=== PATIENT | male | born 1945 | race Caucasian/White ===

== ENCOUNTER → 2016-10-30 | Outpatient (CLI) | payer BC ==
[~2016-10-30] MED LIST: ALL300 PO; CEPH500C2 PO; CLB/200 PO; CMD10 PO; CRD4 PO; CRDCD/180 PO; HYDR-5688 PO; LISI40TA PO; LVNIS40 SQ; MECL1TAB42 PO; PRAV20TA PO; WARF10TA4 PO
--- NOTE | 2016-10-30 10:54 | DIAGNOSTIC IMAGING REPORT ---
ABDOMINAL ULTRASOUND COMPLETE HISTORY: Distention ABDOMINAL DISTENSION. COMPARISON: None. FINDINGS: Pancreas: The pancreas demonstrates a normal echotexture. Liver: Several hepatic cysts. Mild fatty infiltration of liver Gallbladder: Several small gallstones in the region of the gallbladder neck. Trace amount of gallbladder sludge. CBD: 3 mm Kidneys: Bilateral renal cysts measuring up to 5 cm on the left. No evidence for hydronephrosis. Spleen: Normal in size. Aorta: Normal in caliber. IVC: Patent. IMPRESSION: 1. Several small gallstones in the region of the gallbladder neck. 2. Normal caliber bile ducts. 3. Several simple renal cysts Electronically signed by: Joe Kelly M.D. 10/30/2016 10:53 AM Dictated Date/Time: 10/30/2016 10:51 AM
== END | disposition home or self-care (01) ==
LOC: C.ULTRBC 10:08
PROVIDERS: ATTEND Family Medicine
DX: R14.0 Abdominal distension (gaseous) (principal); K80.20 Calculus of gallbladder without cholecystitis without obstruction; N28.1 Cyst of kidney, acquired

== ENCOUNTER → 2016-11-05 | Outpatient (CLI) | payer BC | END | disposition home or self-care (01) | LOC: C.LAB1850 11:51 | PROVIDERS: ATTEND Urology | DX: R33.9 Retention of urine, unspecified (principal); Z51.81 Encounter for therapeutic drug level monitoring; Z79.01 Long term (current) use of anticoagulants; Z86.718 Personal history of other venous thrombosis and embolism; Z86.711 Personal history of pulmonary embolism ==

== ENCOUNTER → 2016-11-13 | Outpatient (CLI) | payer BC ==
[~2016-11-13] MED LIST changes: +OPTIRAY 320 IV PRN
--- NOTE | 2016-11-13 09:17 | DIAGNOSTIC IMAGING REPORT ---
CT SCAN OF THE ABDOMEN AND PELVIS WITH IV CONTRAST CLINICAL HISTORY: Change in bowel habits. COMPARISON STUDY: Abdominal ultrasound dated 10/30/2016. Abdominal CT dated 10/23/2012. TECHNIQUE: Following the IV administration of 101 cc of Optiray 320, CT scan of the abdomen and pelvis is performed from the lung bases to the proximal femora. Images are reviewed in the axial, sagittal, and coronal planes. IV contrast was administered without complication. The examination is degraded by streak artifact from the patient's arms which could not be elevated above the upper abdomen. Automated dose control exposure was utilized. CT DOSE: 709.05 mGy.cm FINDINGS: Lung bases: The heart is normal in size and without pericardial effusion. The coronary arteries are densely calcified. There is bibasilar scarring versus atelectasis. No airspace consolidation is seen typical for pneumonia. Trace pleural effusions are identified. Liver: Evaluation of the liver is degraded by streak artifact. The contrast-enhanced liver is normal in size, contour, and attenuation. There is no intrahepatic biliary ductal dilatation. Scattered hepatic cysts measure up to 1.6 cm. Additional subcentimeter hepatic hypodensities also likely represent cysts but are too small for definitive characterization. The hepatic veins and portal veins are patent. Gallbladder: Small calcified gallstones are identified. Spleen: Normal in size and attenuation. Pancreas: Unremarkable. Adrenal glands: Unremarkable. Kidneys: The contrast enhanced kidneys demonstrate cortical atrophy and are without hydronephrosis. The kidneys enhance symmetrically. Bilateral renal cysts measure up to 5.0 cm. Additional subcentimeter cortical hypodensities also likely represent cysts but are too small for definitive characterization. A 2.1 cm exophytic lesion arising posteriorly from the left kidney on image #214, and a 1.3 cm complex exophytic lesion arising from the anterior left kidney on image #229 do not represent simple cysts. These have increased in size from 2013. Abdominal vasculature: The abdominal aorta is normal in course and caliber noting moderate to advanced atherosclerotic calcification. Bowel: There is no bowel obstruction. An umbilical hernia contains a nonobstructed segment of small bowel as seen on axial image #289. There is mild to moderate colonic diverticulosis without CT evidence of acute diverticulitis. The appendix is well-visualized and normal. Peritoneum: There is no intraperitoneal free air or abdominal ascites. Lymphadenopathy: None. Pelvic viscera: Evaluation of the pelvis is degraded by streak artifact from a left hip arthroplasty. The prostate gland is diminutive versus surgically absent. The bladder is normal as visualized. There is a small fat-containing right inguinal hernia. Surgical clips are noted along the spermatic cord bilaterally. Skeletal structures: The skeletal structures are osteopenic. Moderate lumbosacral spondylosis is observed. No lytic or blastic lesions are seen. A left hip arthroplasty is in place. IMPRESSION: 1. There are no acute infectious or inflammatory findings in the abdomen or pelvis. 2. An umbilical hernia contains a nonobstructed segment of small bowel. No bowel obstruction is seen, and this is unchanged from 10/23/2012. 3. Trace pleural effusions. 4. Cholelithiasis. 5. There are 2 complex lesions arising exophytically from the left kidney which measure up to 2.1 cm. These do not represent simple cysts. Although these lesions could represent complex/proteinaceous cysts, renal neoplasm is not excluded and both of these lesions have increased in size from 2013. Follow-up with a renal protocol CT or MRI is recommended for further assessment. 6. Mild to moderate colonic diverticulosis without CT evidence of acute diverticulitis. 7. Additional findings as above. Electronically signed by: Fred Vargas M.D. 11/13/2016 9:16 AM Dictated Date/Time: 11/13/2016 9:01 AM
== END | disposition home or self-care (01) ==
LOC: C.CTS 06:24
PROVIDERS: ATTEND Internal Medicine Gastroenterology
DX: R19.4 Change in bowel habit (principal); K42.9 Umbilical hernia without obstruction or gangrene; J90 Pleural effusion, not elsewhere classified; K80.20 Calculus of gallbladder without cholecystitis without obstruction; N28.9 Disorder of kidney and ureter, unspecified; K57.30 Diverticulosis of large intestine without perforation or abscess without bleeding

== ENCOUNTER → 2016-11-27 | Outpatient (CLI) | payer BC ==
[~2016-11-27] MED LIST changes: -OPTIRAY 320 IV PRN
--- NOTE | 2016-11-27 13:42 | DIAGNOSTIC IMAGING REPORT ---
ABDOMINAL MRI WITHOUT CONTRAST HISTORY: Follow-up renal cyst/lesions TECHNIQUE: Multiple and multisequence MRI of the abdomen was performed without the use of intravenous contrast to evaluate the kidneys. COMPARISON STUDY: Abdomen and pelvis CT 11/13/2016. FINDINGS: Multiple lobular similar-appearing T2 hyperintense lesion seen scattered throughout the liver. Technically these are incompletely characterized on this noncontrast study but likely represent cysts. The largest cyst measures 1.5 cm within the right hepatic lobe. There are few tiny gallstones. The pancreas, spleen, and adrenal glands are unremarkable. No retroperitoneal lymphadenopathy. The visualized bowel shows no wall thickening or obstruction. No hydronephrosis. There are also multiple well-circumscribed T2 hyperintense lesions seen scattered throughout the kidneys. Again, these are technically indeterminate without the use of intravenous contrast. However, the majority of these likely represent cysts. Dominant cyst within the upper pole the left kidney measures 4.6 cm. There is a 13 mm exophytic T2 hyperintense lesion within the lower pole of the right kidney which demonstrates a surrounding T2 hypointense rim. This could represent peripheral hemosiderin. There is a 1 cm exophytic T2 hypointense, slightly T1 hyperintense lesion within the anterior interpolar region of the left kidney. This does not represent a simple cyst and is technically indeterminate due to the lack of intravenous contrast. Posteriorly within the interpolar region of the left kidney there is a T2 hyperintense, T1 hypointense lesion measuring 1.6 cm. This favors a simple cyst on this study. IMPRESSION: 1. The study was performed on intravenous contrast. Therefore, all renal and hepatic lesions are technically indeterminate. However, the majority of the renal and hepatic lesions likely represent cysts. 2. Redemonstration of the 1 cm exophytic lesion within the interpolar region of the left kidney which does not represent a simple cyst. Again, this could represent a hemorrhagic cyst versus a mass. Either follow-up dedicated renal MRI/CT with contrast is recommended or if the patient cannot have contrast then [address]/MRI follow-up is recommended to ensure stability. 3. The 1.6 cm exophytic lesion within the posterior interpolar region of the left kidney favors a simple cyst. 4. A 13 mm exophytic T2 hyperintense lesion within the lower pole of the right kidney which demonstrates a peripheral T2 hypointense rim. This may represent peripheral hemosiderin are early calcification. This also bears watching on future examinations. Electronically signed by: Naveen Daniel M.D. 11/27/2016 1:41 PM Dictated Date/Time: 11/27/2016 1:28 PM
== END | disposition home or self-care (01) ==
LOC: C.MRI 11:35
PROVIDERS: ATTEND Family Medicine
DX: N28.1 Cyst of kidney, acquired (principal)

== ENCOUNTER 2017-02-15 08:28 | Observation (INO) | payer BC ==
[2017-01-27 10:35] VITALS: Ht 185.4 cm; Wt 96.7 kg
--- NOTE | 2017-01-27 11:24 | PAT Medication Instructions ---
Service Date January 27, 2017. Current Home Medication List Allopurinol (Zyloprim *), 300 MG PO QAM Diltiazem Hcl Coated Beads (Cardizem Cd), 360 MG PO QAM Doxazosin Mesylate (Cardura *), 2 MG PO QAM Lisinopril (Prinivil), 20 MG PO BID Pravastatin (Pravachol ), 10 MG PO HS Warfarin Sod (Coumadin *), 10 MG PO [id number] Warfarin Sod (Jantoven), 9 MG PO [id number] Medication Instructions For Your Scheduled Surgery Warfarin Sod (Coumadin *) (per [facility] instructions) - Hold the following medications evening prior to and morning of surgery: Lisinopril (Prinivil), 20 MG PO BID - Take the following medications the morning of surgery with a sip of water: Doxazosin Mesylate (Cardura *), 2 MG PO QAM Allopurinol (Zyloprim *), 300 MG PO QAM Diltiazem Hcl Coated Beads (Cardizem Cd), 360 MG PO QAM - Take the following medications as scheduled the night before surgery: Pravastatin (Pravachol ), 10 MG PO HS If you have any questions please call us at [phone] or [phone] ( [place]izzie) or [phone]
[2017-01-27 11:49] LABS: BASO % 0.6 %; BASO ABS # 0.05 K/uL (0-0.2); COMPLETE YES; EOS % 2.5 %; HEMATOCRIT 42.7 % (42-52); IG% 0.3 %; LYMPH % 26.3 %; LYMPH ABS # 2.09 K/uL (1.2-3.4); MEAN CELL VOLUME 92.2 fL (80-100); MEAN CORPUSCULAR HEMOGLOBIN 30.5 pg (25-34); MEAN PLATELET VOLUME 9.4 fL (7.4-10.4); MONO % 7.2 %; NEUT % 63.1 %; PLATELET COUNT 263 K/uL (130-400); RED BLOOD COUNT 4.63 M/uL (4.7-6.1); WHITE BLOOD COUNT 7.95 K/uL (4.8-10.8)
[2017-01-27 12:51] LABS: BUN/CREATININE RATIO 12.2 (10-20); CREATININE 1.4 mg/dl (0.60-1.40); POTASSIUM 4.3 mmol/L (3.5-5.1)
[2017-01-27 12:57] LABS: CALCIUM 8.8 mg/dl (8.5-10.1)
[2017-02-14 10:21] LABS: INR 1.1 (0.9-1.1); PROTHROMBIN TIME (PATIENT) 12.3 SECONDS (9.0-12.0)
[~2017-02-15] VITALS: Ht 185.4 cm; Wt 96.7 kg
[2017-02-15] VITALS (9 sets, daily range): BP systolic 134–168; BP diastolic 75–82; PULSE 53–69; TEMP 36.5–37; O2SAT 92–97
[~2017-02-15 08:28] MED LIST changes: +CEFAZOLIN 2000 MG/60 ML D5W IV SCH; -CEPH500C2 PO; -CLB/200 PO; -HYDR-5688 PO; +LACTATED RINGER'S 1000ML 1,000 ML IV SCH; -LVNIS40 SQ; -MECL1TAB42 PO; +MISSING PHYSICIAN SIGNATURE ON ORDER SCH
[2017-02-15] MEDS ORDERED: CEFAZOLIN IV 2,000 MG/60 ML D5W IV ONE (09:11)
[2017-02-15 09:29] LABS: INR 1.1 (0.9-1.1); PROTHROMBIN TIME (PATIENT) 11.4 SECONDS (9.0-12.0)
[2017-02-15] MEDS ORDERED: FENTANYL CITRATE INJ 50 MCG/1 ML 2 ML VIAL ONE ×2 (09:32)
[2017-02-15] MEDS ORDERED: GLYCOPYRROLATE INJ 0.2 MG/ML VIAL ONE (09:34)
[2017-02-15] MEDS ORDERED: PROPOFOL IV EMULSION 10 MG/ML 20 ML VIAL IV ONE (09:34)
[2017-02-15] MEDS ORDERED: NEOSTIGMINE METHYLSULFATE 5 MG/5 ML SYR ONE (09:34)
[2017-02-15] MEDS ORDERED: ROCURONIUM BROMIDE 10 MG/ML 5 ML VIAL ONE (09:34)
[2017-02-15] MEDS ORDERED: ONDANSETRON INJ 2 MG/ML 2 ML VIAL ONE (09:34)
[2017-02-15] MEDS ORDERED: LIDOCAINE HCL 2% 2 ML VIAL (20MG/ML) ONE (09:34)
[2017-02-15] MEDS ORDERED: DEXAMETHASONE SOD INJ 4 MG/ML VIAL ONE (09:34)
[2017-02-15] MEDS ORDERED: LVNIS40 SQ (09:35)
[2017-02-15] MEDS ORDERED: CEFAZOLIN SOD 1 GM VIAL ONE (10:13)
[2017-02-15] MEDS ORDERED: LIDOCAINE HCL 1% 20 ML VIAL ONE (10:13)
[2017-02-15] MEDS ORDERED: BUPIVACAINE 0.5 % 5 MG/1 ML MPF 30ML VIAL ONE (10:14)
[2017-02-15] MEDS ORDERED: MIDAZOLAM HCL 1 MG/ML 2ML VIAL ONE (10:23)
--- NOTE | 2017-02-15 10:25 | History & Physical Bridge Note ---
H&P Re-Evaluation Bridge Note: I have examined the patient, reviewed the History & Physical and in the interval since the performance of the History & Physical I have noted the following changes of clinical significance: No changes noted
[2017-02-15] MEDS ORDERED: KETOROLAC TROMETHAMINE 30 MG/ML VIAL IV. PRN (11:00)
[2017-02-15] MEDS ORDERED: LABETALOL HCL IV 5 MG/ML 20ML IV PRN (11:00)
[2017-02-15] MEDS ORDERED: ATROPINE SULFATE 0.1 MG/ML 5ML SYR IV PRN (11:00)
[2017-02-15] MEDS ORDERED: ONDANSETRON INJ 2 MG/ML 2 ML VIAL IV PRN ×2 (11:00→11:30)
--- NOTE | 2017-02-15 11:15 | [facility] Post Operative Brief Note ---
Immediate Operative Summary Operative Date Feb 15, 2017. Pre-Operative Diagnosis Periumbilical Hernia Post-Operative Diagnosis Same Procedure(s) Performed Laparoscopic Incisional hernia repair with mesh Surgeon Dr Roger Conservation Planner Surgeon(s) Osiel Rivera PA-C Estimated Blood Loss 5ML Findings 3 cm defect, used 12.5 cm surgimesh Specimens NONE Anesthesia gen Complication(s) None Disposition Recovery Room / PACU
[2017-02-15] MEDS: FENTANYL CITRATE INJ 50 MCG/1 ML 2 ML VIAL IV PRN ×6 (11:25→11:51)
[2017-02-15] MEDS ORDERED: HYDROCODONE/ACETAMOPHEN 5/325MG TAB PO PRN (11:30)
[2017-02-15] MEDS ORDERED: MoRPHine SULFATE 2 MG/ML CARP IV PRN (11:30)
[2017-02-15] MEDS ORDERED: MoRPHine SULFATE 4 MG/ML 1 ML CARP\\VIAL IV PRN (11:30)
[2017-02-15] MEDS ORDERED: IV FLUIDS COMPLETED PRN (11:45)
--- NOTE | 2017-02-15 12:08 | Anesthesiology Progress Note ---
Anesthesia Post Op Note Date & Time Feb 15, 2017 at 12:08 Vital Signs Pain Intensity: 4 Vital Signs Past 12 Hours Date Time Temp Pulse Resp B/P (MAP) Pulse Ox O2 Delivery O2 Flow Rate FiO2 02/15/17 11:50 60 16 156/82 91 Nasal Cannula 2 02/15/17 11:40 67 16 162/90 91 Mask 10 02/15/17 11:30 66 16 161/91 96 Mask 10 02/15/17 11:21 36.4 73 16 161/108 95 Mask 10 02/15/17 09:44 36.5 69 20 164/82 (109) Room Air 97 Notes Mental Status: alert / awake / arousable, participated in evaluation Pt Amnestic to Procedure: Yes Nausea / Vomiting: adequately controlled Pain: adequately controlled Airway Patency, RR, SpO2: stable & adequate BP & HR: stable & adequate Hydration State: stable & adequate Anesthetic Complications: no major complications apparent
[2017-02-15] MEDS: LACTATED RINGER'S 1000ML 1,000 ML IV SCH (12:26)
--- NOTE | 2017-02-15 14:12 | OPERATIVE REPORT ---
DATE OF OPERATION: 02/15/2017 NAME OF OPERATION: Laparoscopic incisional hernia repair. PREOPERATIVE DIAGNOSIS: Incisional hernia. POSTOPERATIVE DIAGNOSIS: Same. STAFF SURGEON: Dr. Aries Roger. WAREHOUSE SUPERVISOR: Osiel Rivera PA-C ANESTHESIA: General. DESCRIPTION OF PROCEDURE: The patient was brought into the operating room and placed on the operating table in the supine position. His abdomen was prepped and draped in the usual fashion. Pneumatic stockings and orogastric tube were placed. The patient had previous laparoscopic surgery with an umbilical hernia repair, which has recurred. Initially, the skin and subcutaneous tissue were anesthetized in the left upper quadrant, incision made, carrying dissection down to the fascia, placing a Veress needle, and producing pneumoperitoneum. An 11-mm port was placed at this level and then under visualization, two 5-mm ports placed on the left side, one mid and mid left lower quadrant. On inspection, the patient did have small bowel on CAT scan within the hernia, but it spontaneously reduced with the pneumoperitoneum. The patient's defect was approximately 3 cm in diameter. At this point, a 12.5-cm piece of Surgimesh was chosen. It was rolled and placed into the abdomen, the polypropylene mesh was toward the fascia and the silicone toward the bowel. A Prolene suture in the center of the mesh was brought up through the defect through the skin and then, the mesh was secured in 2 rows, an outer and inner row of absorbable tacks. With good placement, all ports were then removed. The Prolene was removed. The fascia in the left upper quadrant closed using interrupted 0 Vicryl suture. Skin in the left upper quadrant closed using subcuticular 4-0 Monocryl and Steri-Strips. The 5 mm port sites closed using 5-0 Prolene suture and then the umbilical puncture site closed using Dermabond. The patient was transferred to recovery room in stable condition. I attest to the content of the Intraoperative Record and any orders documented therein. Any exception s are noted below.
--- NOTE | 2017-02-15 15:45 | Medical Consult ---
Consultation Date of Consultation: Feb 15, 2017. Attending Physician: Aries Roger M.D. Reason for Consultation: Medication Mx History of Present Illness Mr Goldman is a 72 yo M with hx of 3 previous DVTs, on lifelong coumadin, who underwent laparoscopic umbilical hernia repair today. He feels well, reports his pain is minimal. His last DVTs were postoperatively and he has not had one since 2011. He [facility] with Dr [facility]. Currently, he denies any other concerns. His coumadin has been restarted. Past Medical/Surgical History Medical Problems: (1) Anticardiolipin Antibody (2) ANTICOAGULANTS,LT,CURRENT USE (3) DEEP PHLEBITIS-LEG NEC (4) HX-VENOUS THROMBOSIS&EMBOLISM (5) Incisional hernia (6) KNEE JOINT REPLACEMENT STATUS (7) orhtostatic hypotension (8) Prothrombin Gene Mutation Family History Cancer Heart disease Hypertension Social History Smoking Status: Current Some Day Smoker Marital Status: Housing Status: lives with family Occupation Status: employed Allergies Coded Allergies: No Known Allergies (Verified , 01/27/17) Current Inpatient Medications Current Inpatient Medications Medications (Trade) Dose Ordered Sig/Donnie Route Start Time Stop Time Status Last Admin Dose Admin Lactated Ringer's 1,000 ml @ 15 mls/hr Q24H IV 02/15/17 06:00 02/16/17 05:59 Ondansetron HCl (Zofran Inj) 4 mg ONE PRN IV 02/15/17 11:00 02/15/17 16:00 Atropine Sulfate (Atropine Sulfate 0.1MG/Ml Inj) 0.5 mg Q1M PRN IV 02/15/17 11:00 02/15/17 16:00 Fentanyl Citrate (Fentanyl Inj) 25 mcg Q5M PRN IV 02/15/17 11:00 02/15/17 16:00 02/15/17 11:51 25 MCG Allopurinol (Zyloprim Tab) 300 mg QAM PO 02/16/17 09:00 03/18/17 08:59 Diltiazem HCl (Cardizem Cd Cap) 360 mg QAM PO 02/16/17 09:00 03/18/17 08:59 Doxazosin Mesylate (Cardura Tab) 2 mg QAM PO 02/16/17 09:00 03/18/17 08:59 Lisinopril (Zestril Tab) 20 mg BID PO 02/15/17 21:00 03/17/17 20:59 Pravastatin Sodium (Pravachol Tab) 10 mg HS PO 02/15/17 21:00 03/17/17 20:59 Lactated Ringer's 1,000 ml @ 75 mls/hr [id number] IV 02/15/17 11:16 03/17/17 11:15 02/15/17 12:26 75 MLS/HR Cefazolin Sodium 1000 mg/Dextrose 55 ml @ 100 mls/hr Q6H IV 02/15/17 16:00 02/25/17 15:59 Acetaminophen/ Hydrocodone Bitart (Aylett 5/325 Tab) 1 tab Q4 PRN PO 02/15/17 11:30 03/01/17 11:29 Acetaminophen/ Hydrocodone Bitart (Aylett 5/325 Tab) 2 tab Q4 PRN PO 02/15/17 11:30 03/01/17 11:29 Morphine Sulfate (MoRPHine SULFATE INJ) 2 mg Q4H PRN IV 02/15/17 11:30 03/01/17 11:29 Morphine Sulfate (MoRPHine SULFATE INJ) 4 mg Q4H PRN IV 02/15/17 11:30 03/01/17 11:29 Senna/Docusate Sodium (Senokot S Tab) 1 tab BID PO 02/15/17 18:00 03/17/17 17:59 Magnesium Hydroxide (Milk Of Magnesia Susp) 30 ml BID PO 02/15/17 18:00 03/17/17 17:59 Ondansetron HCl (Zofran Inj) 4 mg Q6H PRN IV 02/15/17 11:30 03/17/17 11:29 Warfarin Sodium (Coumadin Tab) 10 mg TODAY@1600 ONCE PO 02/15/17 16:00 02/15/17 16:01 Heparin Sodium (Porcine) (Heparin Sq 5000 Unit/0.5ml) 5,000 unit Q12H SQ 02/15/17 21:00 03/17/17 20:59 Miscellaneous (Iv Fluids Completed) 1 ea PRN PRN N/A 02/15/17 11:45 02/15/18 11:44 Review of Systems See HPI for pertinent positives & negatives. A total of 10 systems reviewed and were otherwise negative. Physical Exam Date Time Temp Pulse Resp B/P (MAP) Pulse Ox O2 Delivery O2 Flow Rate FiO2 02/15/17 15:30 36.5 57 18 166/76 (106) 97 Room Air 02/15/17 14:20 36.6 53 14 134/75 (94) 96 Nasal Cannula 2.0 02/15/17 13:33 56 18 156/78 (104) 02/15/17 12:49 58 16 162/82 (108) 92 Nasal Cannula 2.0 02/15/17 12:38 92 Nasal Cannula 2.0 02/15/17 12:30 Nasal Cannula 2.0 02/15/17 12:21 36.6 60 18 165/80 (108) 92 Nasal Cannula 2.0 02/15/17 12:00 36.4 59 16 147/79 93 Nasal Cannula 2 02/15/17 11:50 60 16 156/82 91 Nasal Cannula 2 02/15/17 11:40 67 16 162/90 91 Mask 10 02/15/17 11:30 66 16 161/91 96 Mask 10 02/15/17 11:21 36.4 73 16 161/108 95 Mask 10 02/15/17 09:44 36.5 69 20 164/82 (109) Room Air 97 GENERAL: Awake, alert, well-appearing, in no acute distress HENT: Normocephalic, atraumatic. Oropharynx unremarkable. EYES: Normal conjunctiva. Sclera non-icteric. NECK: Supple. No nuchal rigidity. FROM. No JVD. RESPIRATORY: Clear to auscultation. On 2L nasal cannula. CARDIAC: Regular rate, normal rhythm. Extremities warm and well perfused. Pulses equal. ABDOMEN: Tender to light palpation. BS active. MUSCULOSKELETAL: Chest examination reveals no tenderness. The back is symmetrical on inspection without obvious abnormality. There is no CVA tenderness to palpation. No joint edema. LOWER EXTREMITIES: Calves are equal size bilaterally and non-tender. SCDs in place. No edema. No discoloration. NEURO: Normal sensorium. No sensory or motor deficits noted. SKIN: No rash or jaundice noted. Laboratory Results Last 24 Hours Test 02/15/17 09:15 Prothrombin Time 11.4 SECONDS Prothromb Time International Ratio 1.1 Activated Partial Thromboplast Time 26.2 SECONDS Partial Thromboplastin Ratio 1.0 Assessment & Plan 72 yo M w/hx of recurrent DVTs and hypertension, who is post op day 0 for lap umbilical hernia repair. Recommendations: - Agree with restarting coumadin today, and using SCDs for DVT prevention. Will take 1-2 days to affect INR, and he can also be set up in the [facility] again regardless. - He is concerned about not passing urine or stool, we discussed how anesthesia can affect this, and he already has Senna and Milk of Mag prescribed. He passed stool earlier today regardless. - Anti-hypertensives already restarted Thank you for allowing us to participate in the care of Mr Goldman. We will continue to follow. Resident Physician Supervision Note: I interviewed and examined the patient. Discussed with Dr. Medrano and agree with findings and plan as documented in the note. Any exceptions or clarifications are listed here: None Documented By: Ld Castellanos feeling good just can't pee yet. no other new complaints ROS otherwise negative except for as above vitals noted nad breathing unlabored urinary retention - anticipate improvement recurrent DVTs - resumed coumadin Resident Tracking Resident Involvement: Resident Care Provided Care Provided: Adult [facility] Medicine
[2017-02-15] MEDS: CEFAZOLIN IV 1,000 MG in DEXTROSE 5% 50ML 50 ML IV SCH ×2 (16:00→22:20)
[2017-02-15] MEDS ORDERED: WARFARIN SOD 5 MG TAB PO ONE (16:00)
[2017-02-15] MEDS: MAGNESIUM HYDROXIDE SUSP 30 ML UDC PO SCH (20:00)
[2017-02-15] MEDS: DOCUSATE SODIUM/SENNA 50/8.6MG TAB PO SCH (20:00)
[2017-02-15] MEDS: HYDROCODONE/ACETAMOPHEN 5/325MG TAB PO PRN (20:09)
[2017-02-15] MEDS: PRAVASTATIN SOD 10 MG TAB PO SCH (20:12)
[2017-02-15] MEDS: LISINOPRIL 20 MG TAB PO SCH (20:12)
[2017-02-15] MEDS ORDERED: HEPARIN SOD 5000 UNIT/0.5 ML CARP SQ SCH (21:00)
[2017-02-16] VITALS (7 sets, daily range): BP systolic 136–172; BP diastolic 76–86; PULSE 48–63; TEMP 36.4–36.9; O2SAT 92–96
[2017-02-16] MEDS: LACTATED RINGER'S 1000ML 1,000 ML IV SCH (00:34)
[2017-02-16] MEDS: CEFAZOLIN IV 1,000 MG in DEXTROSE 5% 50ML 50 ML IV SCH ×4 (03:43→21:40)
[2017-02-16 06:16] LABS: HEMATOCRIT 38.9 % (42-52); MEAN CELL VOLUME 93.1 fL (80-100); MEAN CORPUSCULAR HEMOGLOBIN 31.1 pg (25-34); MEAN CORPUSCULAR HGB CONC 33.4 g/dl (32-36); MEAN PLATELET VOLUME 9.8 fL (7.4-10.4); PLATELET COUNT 265 K/uL (130-400); RED BLOOD COUNT 4.18 M/uL (4.7-6.1); WHITE BLOOD COUNT 9.15 K/uL (4.8-10.8)
[2017-02-16 06:51] LABS: BUN/CREATININE RATIO 14.4 (10-20); CALCIUM 7.8 mg/dl (8.5-10.1); CREATININE 1.1 mg/dl (0.60-1.40); POTASSIUM 4.2 mmol/L (3.5-5.1)
--- NOTE | 2017-02-16 07:00 | Surgery Progress Note ---
Surgery Progress Note Date of Service Feb 16, 2017. Subjective alert, pain controlled received dose of coumadin, SC hep Objective Vital Signs: Date Time Temp Pulse Resp B/P (MAP) Pulse Ox O2 Delivery O2 Flow Rate FiO2 02/16/17 04:00 36.5 48 16 144/84 (104) 96 Room Air 02/15/17 23:10 Room Air 02/15/17 22:50 36.5 57 18 165/81 (109) 95 Room Air 02/15/17 19:51 37.0 58 18 168/80 (109) 97 Room Air 02/15/17 15:50 Nasal Cannula 2.0 02/15/17 15:30 36.5 57 18 166/76 (106) 97 Room Air 02/15/17 14:20 36.6 53 14 134/75 (94) 96 Nasal Cannula 2.0 02/15/17 13:33 56 18 156/78 (104) 02/15/17 12:49 58 16 162/82 (108) 92 Nasal Cannula 2.0 02/15/17 12:38 92 Nasal Cannula 2.0 02/15/17 12:30 Nasal Cannula 2.0 02/15/17 12:21 36.6 60 18 165/80 (108) 92 Nasal Cannula 2.0 02/15/17 12:00 36.4 59 16 147/79 93 Nasal Cannula 2 02/15/17 11:50 60 16 156/82 91 Nasal Cannula 2 02/15/17 11:40 67 16 162/90 91 Mask 10 02/15/17 11:30 66 16 161/91 96 Mask 10 02/15/17 11:21 36.4 73 16 161/108 95 Mask 10 02/15/17 09:44 36.5 69 20 164/82 (109) Room Air 97 General Appearance: no apparent distress Respiratory/Chest: no respiratory distress Abdomen: soft Incision(s): intact Laboratory Results: Results Past 24 Hours Test 02/15/17 09:15 02/16/17 05:09 Range/Units Prothrombin Time 11.4 9.0-12.0 SECONDS Prothromb Time International Ratio 1.1 0.9-1.1 Activated Partial Thromboplast Time 26.2 21.0-31.0 SECONDS Partial Thromboplastin Ratio 1.0 White Blood Count 9.15 4.8-10.8 K/uL Red Blood Count 4.18 4.7-6.1 M/uL Hemoglobin 13.0 14.0-18.0 g/dL Hematocrit 38.9 42-52 % Mean Corpuscular Volume 93.1 80-100 fL Mean Corpuscular Hemoglobin 31.1 25-34 pg Mean Corpuscular Hemoglobin Concent 33.4 32-36 g/dl RDW Standard Deviation 49.0 36.4-46.3 fL RDW Coefficient of Variation 14.4 11.5-14.5 % Platelet Count 265 130-400 K/uL Mean Platelet Volume 9.8 7.4-10.4 fL Sodium Level 141 136-145 mmol/L Potassium Level 4.2 3.5-5.1 mmol/L Chloride Level 106 98-107 mmol/L Carbon Dioxide Level 27 21-32 mmol/L Anion Gap 8.0 3-11 mmol/L Blood Urea Nitrogen 16 7-18 mg/dl Creatinine 1.10 0.60-1.40 mg/dl Est Creatinine Clear Calc Drug Dose 72.2 ml/min Estimated GFR () 76.2 Estimated GFR (Non- 65.8 BUN/Creatinine Ratio 14.4 10-20 Random Glucose 135 70-99 mg/dl Calcium Level 7.8 8.5-10.1 mg/dl Assessment & Plan 02/16/17- s/p lap incisional hernia repair- plan to give Coumadin 10 mg today and tomorrow and cont on SC hep q 8- cont IV atbx- plan d/c tomorrow- ambulate
--- NOTE | 2017-02-16 08:05 | Hospitalist Progress Note ---
Hospitalist Progress Note Date of Service Feb 16, 2017. (Celina Medrano MD) Subjective Pt evaluation today including: conversation w/ patient, physical exam Voiding: no voiding problems, no incontinence [place] ok, but feels better when laying flat. Discussed how he needs to ambulate tomorrow to improve chances of getting home today. Denied any pain. Reports he usually takes 10mg / 9 mg of Coumadin alternating days, total 66mg per week. Constitutional: No fever, No chills, No sweats, No weight loss, No weakness ENT: No hearing loss Respiratory: No cough, No sputum Cardiovascular: No chest pain Abdomen: No pain, No nausea Musculoskeletal: No joint pain Male : No dysuria Endo: No fatigue All Other Systems: Reviewed and Negative (Celina Medrano MD) Medications Current Inpatient Medications Medications (Trade) Dose Ordered Sig/Donnie Route Start Time Stop Time Status Last Admin Dose Admin Allopurinol (Zyloprim Tab) 300 mg QAM PO 02/16/17 09:00 03/18/17 08:59 Diltiazem HCl (Cardizem Cd Cap) 360 mg QAM PO 02/16/17 09:00 03/18/17 08:59 Doxazosin Mesylate (Cardura Tab) 2 mg QAM PO 02/16/17 09:00 03/18/17 08:59 Lisinopril (Zestril Tab) 20 mg BID PO 02/15/17 21:00 03/17/17 20:59 02/15/17 20:12 20 MG Pravastatin Sodium (Pravachol Tab) 10 mg HS PO 02/15/17 21:00 03/17/17 20:59 02/15/17 20:12 10 MG Cefazolin Sodium 1000 mg/Dextrose 55 ml @ 100 mls/hr Q6H IV 02/15/17 16:00 02/25/17 15:59 02/16/17 03:43 100 MLS/HR Acetaminophen/ Hydrocodone Bitart ([place] 5/325 Tab) 1 tab Q4 PRN PO 02/15/17 11:30 03/01/17 11:29 02/15/17 16:16 1 TAB Acetaminophen/ Hydrocodone Bitart ([place] 5/325 Tab) 2 tab Q4 PRN PO 02/15/17 11:30 03/01/17 11:29 02/15/17 20:09 2 TAB Morphine Sulfate (MoRPHine SULFATE INJ) 2 mg Q4H PRN IV 02/15/17 11:30 03/01/17 11:29 Morphine Sulfate (MoRPHine SULFATE INJ) 4 mg Q4H PRN IV 02/15/17 11:30 03/01/17 11:29 Senna/Docusate Sodium (Senokot S Tab) 1 tab BID PO 02/15/17 18:00 03/17/17 17:59 02/15/17 20:00 1 TAB Magnesium Hydroxide (Milk Of Magnesia Susp) 30 ml BID PO 02/15/17 18:00 03/17/17 17:59 02/15/17 20:00 30 ML Ondansetron HCl (Zofran Inj) 4 mg Q6H PRN IV 02/15/17 11:30 03/17/17 11:29 Miscellaneous (Iv Fluids Completed) 1 ea PRN PRN N/A 02/15/17 11:45 02/15/18 11:44 Warfarin Sodium (Coumadin Tab) 10 mg DAILY@16 PO 02/16/17 16:00 03/18/17 15:59 Heparin Sodium (Porcine) (Heparin Sq 5000 Unit/0.5ml) 5,000 unit Q8 SQ 02/16/17 08:00 03/18/17 07:59 (Celina Medrano MD) Objective Vital Signs Date Time Temp Pulse Resp B/P (MAP) Pulse Ox O2 Delivery O2 Flow Rate FiO2 02/16/17 07:50 36.4 60 14 172/86 (114) 95 Room Air 02/16/17 04:00 36.5 48 16 144/84 (104) 96 Room Air 02/15/17 23:10 Room Air 02/15/17 22:50 36.5 57 18 165/81 (109) 95 Room Air 02/15/17 19:51 37.0 58 18 168/80 (109) 97 Room Air 02/15/17 15:50 Nasal Cannula 2.0 02/15/17 15:30 36.5 57 18 166/76 (106) 97 Room Air 02/15/17 14:20 36.6 53 14 134/75 (94) 96 Nasal Cannula 2.0 02/15/17 13:33 56 18 156/78 (104) 02/15/17 12:49 58 16 162/82 (108) 92 Nasal Cannula 2.0 02/15/17 12:38 92 Nasal Cannula 2.0 02/15/17 12:30 Nasal Cannula 2.0 02/15/17 12:21 36.6 60 18 165/80 (108) 92 Nasal Cannula 2.0 02/15/17 12:00 36.4 59 16 147/79 93 Nasal Cannula 2 02/15/17 11:50 60 16 156/82 91 Nasal Cannula 2 02/15/17 11:40 67 16 162/90 91 Mask 10 02/15/17 11:30 66 16 161/91 96 Mask 10 02/15/17 11:21 36.4 73 16 161/108 95 Mask 10 02/15/17 09:44 36.5 69 20 164/82 (109) Room Air 97 (Celina Medrano MD) Physical Exam General Appearance: WD/WN, no apparent distress Eyes: normal inspection, PERRL ENT: hearing grossly normal Neck: supple, no JVD Respiratory/Chest: lungs clear, normal breath sounds, no respiratory distress Cardiovascular: regular rate, rhythm, no murmur Abdomen: non tender, soft Extremities: non-tender, no pedal edema Neurologic/Psychiatric: alert, normal mood/affect, oriented x 3 (Celina Medrano MD) Laboratory Results Last 24 Hours Test 02/15/17 09:15 02/16/17 05:09 Prothrombin Time 11.4 SECONDS Prothromb Time International Ratio 1.1 Activated Partial Thromboplast Time 26.2 SECONDS Partial Thromboplastin Ratio 1.0 White Blood Count 9.15 K/uL Red Blood Count 4.18 M/uL Hemoglobin 13.0 g/dL Hematocrit 38.9 % Mean Corpuscular Volume 93.1 fL Mean Corpuscular Hemoglobin 31.1 pg Mean Corpuscular Hemoglobin Concent 33.4 g/dl RDW Standard Deviation 49.0 fL RDW Coefficient of Variation 14.4 % Platelet Count 265 K/uL Mean Platelet Volume 9.8 fL Sodium Level 141 mmol/L Potassium Level 4.2 mmol/L Chloride Level 106 mmol/L Carbon Dioxide Level 27 mmol/L Anion Gap 8.0 mmol/L Blood Urea Nitrogen 16 mg/dl Creatinine 1.10 mg/dl Est Creatinine Clear Calc Drug Dose 72.2 ml/min Estimated GFR () 76.2 Estimated GFR (Non- 65.8 BUN/Creatinine Ratio 14.4 Random Glucose 135 mg/dl Calcium Level 7.8 mg/dl (Celina Medrano MD) Diagnostic Results Last 24 Hours Test 02/15/17 09:15 02/16/17 05:09 Prothrombin Time 11.4 SECONDS Prothromb Time International Ratio 1.1 Activated Partial Thromboplast Time 26.2 SECONDS Partial Thromboplastin Ratio 1.0 White Blood Count 9.15 K/uL Red Blood Count 4.18 M/uL Hemoglobin 13.0 g/dL Hematocrit 38.9 % Mean Corpuscular Volume 93.1 fL Mean Corpuscular Hemoglobin 31.1 pg Mean Corpuscular Hemoglobin Concent 33.4 g/dl RDW Standard Deviation 49.0 fL RDW Coefficient of Variation 14.4 % Platelet Count 265 K/uL Mean Platelet Volume 9.8 fL Sodium Level 141 mmol/L Potassium Level 4.2 mmol/L Chloride Level 106 mmol/L Carbon Dioxide Level 27 mmol/L Anion Gap 8.0 mmol/L Blood Urea Nitrogen 16 mg/dl Creatinine 1.10 mg/dl Est Creatinine Clear Calc Drug Dose 72.2 ml/min Estimated GFR () 76.2 Estimated GFR (Non- 65.8 BUN/Creatinine Ratio 14.4 Random Glucose 135 mg/dl Calcium Level 7.8 mg/dl (Celina Medrano MD) Assessment and Plan 72 yo M w/hx of recurrent DVTs and hypertension, who is post op day 1 for lap umbilical hernia repair. Coumadin restarted, and is on heparin in meantime. Recommendations: - He is on 10mg Coumadin, we will increase that to 15mg today (Discussed w/Dr Roger) - We will continue his heparin q8h - Anti-hypertensives already restarted - Agree with and encouraged pt to ambulate today Thank you for allowing us to participate in the care of Mr Goldman. We will continue to follow. (Celina Medrano MD) Resident Physician Supervision Note: I interviewed and examined the patient. Discussed with Dr. Medrano and agree with findings and plan as documented in the note. Any exceptions or clarifications are listed here: None Documented By: Ld Castellanos feeling OK - worried about coumadin dosing. extensive discussion. walking the halls without difficulty. ROS otherwise negative except for as above vitals noted nad breathing unlabored ambulating steadily without difficulty no leg erythema/edema noted recurrent DVT - discussed - on heparin SQ resuming coumadin and walking; last clot 2011. appearing safe urinary retention - resolved otherwise as above (Ld Castellanos D.O.)
[2017-02-16] MEDS: HEPARIN SOD 5000 UNIT/0.5 ML CARP SQ SCH ×3 (08:35→21:43)
[2017-02-16] MEDS: DILTIAZEM HCL 180 MG CAPCR PO SCH (08:36)
[2017-02-16] MEDS: DOXAZosin MESYLATE TAB 2 MG TAB PO SCH (08:37)
[2017-02-16] MEDS: MAGNESIUM HYDROXIDE SUSP 30 ML UDC PO SCH ×2 (08:37→21:40)
[2017-02-16] MEDS: ALLOPURINOL 300 MG TAB PO SCH (08:38)
[2017-02-16] MEDS: LISINOPRIL 20 MG TAB PO SCH ×2 (08:39→21:40)
[2017-02-16] MEDS: HYDROCODONE/ACETAMOPHEN 5/325MG TAB PO PRN ×2 (08:51→14:44)
[2017-02-16] MEDS: DOCUSATE SODIUM/SENNA 50/8.6MG TAB PO SCH ×2 (10:22→21:40)
[2017-02-16] MEDS ORDERED: HYDR-5688 PO (14:25)
[2017-02-16] MEDS ORDERED: CEPH500C2 PO (14:25)
--- NOTE | 2017-02-16 14:30 | Discharge Instructions ---
Discharge Instructions Date of Service Feb 16, 2017. Admission Reason for Admission: Umbilical Hernia Discharge Discharge Diagnosis / Problem: incisional hernia Discharge Goals Goal(s): Decrease discomfort, Improve function, Improve disease control Activity Recommendations Activity Limitations: as noted below Lifting Limitations: no more than 10 pounds Exercise/Sports Limitations: until after follow-up appointment May Resume Sexual Activity: when tolerated Shower/Bathe: tomorrow Driving or Machine Use: resume 3 days after discharge SPECIAL CARE INSTRUCTIONS: * Cover incisions and change daily for comfort/drainage. * Avoid constipation- may use Senokot S and Milk of Magnesia twice daily as directed on the package - may also use Miralax- 8.3 oz bottle- mix half in 32 oz of Gatorade- drink over 2-3 hours- may repeat * May use ibuprofen for pain as tolerated. * Expect some swelling and bruising. Call your doctor if: * Temperature above 101 degrees * Pain not relieved by pain medicine ordered * There is increased drainage or redness from any incision * You have any unanswered questions or concerns [phone]. FOLLOW UP VISIT: If not already scheduled, please call the office for a follow-up visit. for next week- some suture removal and wound check OFFICE PHONE NUMBER: Dr. Roger Office . Current Hospital Diet Patient's current hospital diet: Regular Diet Discharge Diet Recommended Diet: Regular Diet Procedures Procedures Performed: Laparoscopic Incisional hernia repair with mesh Pending Studies Studies pending at discharge: no Medical Emergencies . Who to Call and When: Medical Emergencies: If at any time you feel your situation is an emergency, please call 911 immediately. . Non-Emergent Contact Non-Emergency issues call your: Primary Care Provider, Surgeon . "Provider Documentation" section prepared by Aries Roger. . VTE Core Measure Inpt VTE Proph given/why not?: Unfractionated heparin SQ, Warfarin (Coumadin), SCD's
[2017-02-16] MEDS ORDERED: WARFARIN SOD 5 MG TAB PO SCH ×2 (16:00)
[2017-02-16] MEDS: PRAVASTATIN SOD 10 MG TAB PO SCH (21:40)
[2017-02-17] VITALS (7 sets, daily range): BP systolic 146–189; BP diastolic 81–98; PULSE 58–70; TEMP 36.6–37; O2SAT 93–95
[2017-02-17] MEDS: CEFAZOLIN IV 1,000 MG in DEXTROSE 5% 50ML 50 ML IV SCH ×4 (04:28→21:57)
[2017-02-17 05:30] LABS: INR 1.1 (0.9-1.1); PARTIAL THROMBOPLASTIN RATIO 1.1; PROTHROMBIN TIME (PATIENT) 11.9 SECONDS (9.0-12.0)
[2017-02-17] MEDS: HEPARIN SOD 5000 UNIT/0.5 ML CARP SQ SCH ×2 (05:44→14:43)
--- NOTE | 2017-02-17 06:01 | Surgery Progress Note ---
Surgery Progress Note Date of Service Feb 17, 2017. Subjective + flatus, No nausea, No vomiting pt concerned about distention and no bm yet, + flatus Objective Vital Signs: Date Time Temp Pulse Resp B/P (MAP) Pulse Ox O2 Delivery O2 Flow Rate FiO2 02/16/17 23:58 Room Air 02/16/17 22:55 36.9 58 16 136/76 (96) 92 Room Air 02/16/17 19:00 36.6 63 18 147/76 (99) 93 Room Air 02/16/17 16:20 Room Air 02/16/17 15:26 36.6 57 18 158/76 (103) 95 Room Air 02/16/17 11:26 36.9 60 14 148/80 (102) 95 Room Air 02/16/17 10:52 95 Room Air 02/16/17 07:50 36.4 60 14 172/86 (114) 95 Room Air 02/16/17 07:05 Room Air General Appearance: no apparent distress Respiratory/Chest: no respiratory distress Abdomen: normal bowel sounds, + distended Incision(s): intact Laboratory Results: Results Past 24 Hours Test 02/17/17 05:05 Range/Units Prothrombin Time 11.9 9.0-12.0 SECONDS Prothromb Time International Ratio 1.1 0.9-1.1 Activated Partial Thromboplast Time 28.0 21.0-31.0 SECONDS Partial Thromboplastin Ratio 1.1 Assessment & Plan 02/17/17- no bm yet- will give Miralax this am ( 4 packs in 32oz Gatorade) hold Sen S and MOM, cont IV atbx and SC Hep. possible d/c later if progresses 02/16/17- s/p lap incisional hernia repair- plan to give Coumadin 10 mg today and tomorrow and cont on SC hep q 8- cont IV atbx- plan d/c tomorrow- ambulate 02/16/17- s/p lap incisional hernia repair- plan to give Coumadin 10 mg today and tomorrow and cont on SC hep q 8- cont IV atbx- plan d/c tomorrow- ambulate
[2017-02-17] MEDS ORDERED: POLYETHYLENE (MIRALAX) 17 GM PACK PO SCH (07:00)
[2017-02-17] MEDS: DILTIAZEM HCL 180 MG CAPCR PO SCH (09:51)
[2017-02-17] MEDS: DOXAZosin MESYLATE TAB 2 MG TAB PO SCH (09:52)
[2017-02-17] MEDS: LISINOPRIL 20 MG TAB PO SCH ×2 (09:52→21:57)
[2017-02-17] MEDS: ALLOPURINOL 300 MG TAB PO SCH (09:53)
--- NOTE | 2017-02-17 10:02 | Family Medicine Progress Note ---
Progress Note Date of Service Feb 17, 2017. Subjective Pt evaluation today including: conversation w/ patient, conversation w/ family , physical exam Voiding: no voiding problems, no incontinence [place] well today. Denied any concerns, though is waiting for his bowels to pass. Has had about 3 of 4 cups of Miralax. Has been ambulating without difficulty. Additional Comments: ROS negative unless otherwise noted in HPI. Medications Current Inpatient Medications Medications (Trade) Dose Ordered Sig/Donnie Route Start Time Stop Time Status Last Admin Dose Admin Allopurinol (Zyloprim Tab) 300 mg QAM PO 02/16/17 09:00 03/18/17 08:59 02/17/17 09:53 300 MG Diltiazem HCl (Cardizem Cd Cap) 360 mg QAM PO 02/16/17 09:00 03/18/17 08:59 02/17/17 09:51 360 MG Doxazosin Mesylate (Cardura Tab) 2 mg QAM PO 02/16/17 09:00 03/18/17 08:59 02/17/17 09:52 2 MG Lisinopril (Zestril Tab) 20 mg BID PO 02/15/17 21:00 03/17/17 20:59 02/17/17 09:52 20 MG Pravastatin Sodium (Pravachol Tab) 10 mg HS PO 02/15/17 21:00 03/17/17 20:59 02/16/17 21:40 10 MG Cefazolin Sodium 1000 mg/Dextrose 55 ml @ 100 mls/hr Q6H IV 02/15/17 16:00 02/25/17 15:59 02/17/17 04:28 100 MLS/HR Acetaminophen/ Hydrocodone Bitart ([place] 5/325 Tab) 1 tab Q4 PRN PO 02/15/17 11:30 03/01/17 11:29 02/15/17 16:16 1 TAB Acetaminophen/ Hydrocodone Bitart ([place] 5/325 Tab) 2 tab Q4 PRN PO 02/15/17 11:30 03/01/17 11:29 02/16/17 14:44 2 TAB Morphine Sulfate (MoRPHine SULFATE INJ) 2 mg Q4H PRN IV 02/15/17 11:30 03/01/17 11:29 Morphine Sulfate (MoRPHine SULFATE INJ) 4 mg Q4H PRN IV 02/15/17 11:30 03/01/17 11:29 Ondansetron HCl (Zofran Inj) 4 mg Q6H PRN IV 02/15/17 11:30 03/17/17 11:29 Miscellaneous (Iv Fluids Completed) 1 ea PRN PRN N/A 02/15/17 11:45 02/15/18 11:44 Heparin Sodium (Porcine) (Heparin Sq 5000 Unit/0.5ml) 5,000 unit Q8 SQ 02/16/17 08:00 03/18/17 07:59 02/17/17 05:44 5,000 UNIT Warfarin Sodium (Coumadin Tab) 15 mg DAILY@16 PO 02/16/17 16:00 03/18/17 15:59 02/16/17 16:09 15 MG Polyethylene (Miralax Powder Packet) 68 gm 0700 PO 02/17/17 07:00 02/17/17 12:00 02/17/17 06:39 68 GM Objective Vital Signs Date Time Temp Pulse Resp B/P (MAP) Pulse Ox O2 Delivery O2 Flow Rate FiO2 02/17/17 07:40 36.6 58 16 165/86 (112) 93 Room Air 02/17/17 07:05 Room Air 02/16/17 23:58 Room Air 02/16/17 22:55 36.9 58 16 136/76 (96) 92 Room Air 02/16/17 19:00 36.6 63 18 147/76 (99) 93 Room Air 02/16/17 16:20 Room Air 02/16/17 15:26 36.6 57 18 158/76 (103) 95 Room Air 02/16/17 11:26 36.9 60 14 148/80 (102) 95 Room Air 02/16/17 10:52 95 Room Air Physical Exam General Appearance: WD/WN, no apparent distress Eyes: normal inspection, PERRL ENT: hearing grossly normal Neck: supple, no JVD Respiratory/Chest: chest non-tender, lungs clear, normal breath sounds Cardiovascular: regular rate, rhythm, no murmur Abdomen: normal bowel sounds (active in all quadrants), soft, + distended Extremities: non-tender, normal inspection, no pedal edema Neurologic/Psychiatric: alert, normal mood/affect, oriented x 3 Skin: no rash Laboratory Results Last 24 Hours Test 02/17/17 05:05 Prothrombin Time 11.9 SECONDS Prothromb Time International Ratio 1.1 Activated Partial Thromboplast Time 28.0 SECONDS Partial Thromboplastin Ratio 1.1 Assessment and Plan 72 yo M w/hx of recurrent DVTs and hypertension, who is post op day 2 for lap umbilical hernia repair. Active issue pending discharge is constipation, though has very active bowel sounds and likely will pass stool today. Recommendations: - We will continue another dose of 15mg Coumadin today. We will set up an appt for him in the [facility]. An appt is already set for Wednesday, we will try to set it up for sooner, if not he can get his INR checked Wednesday as an outpatient. - Agree with Miralax for constipation. Thank you for allowing us to participate in the care of Mr Goldman. As he is likely to be discharged today, we will sign off for now. Resident Physician Supervision Note: I interviewed and examined the patient. Discussed with Dr. Medrano and agree with findings and plan as documented in the note. Any exceptions or clarifications are listed here: None Documented By: Ld Castellanos feeling OK except constipated but thinks he'll be able to have BM soon reviewed coumadin to have INR as outpt tomorrow has anticoagulation clinic appt scheduled for wednesday with goal of moving up to wednesday but has outpt INR tomorrow anyway. no s/s DVT no bleeding. ROS otherwise negative except for as above. vitals noted nad breathing unlabored no pallor or icterus recurrent DVT - resuming coumadin, follow INR closely, no appearance of active clotting at this time urinary retention - resolved constipation - miralax stable for home Resident Tracking Resident Involvement: Resident Care Provided Care Provided: Adult Hospital Medicine
[2017-02-17] MEDS: HYDROCODONE/ACETAMOPHEN 5/325MG TAB PO PRN (11:22)
[2017-02-17] MEDS ORDERED: WARFARIN SOD 10 MG TAB PO ONE (16:00)
[2017-02-17] MEDS ORDERED: ENOXAPARIN 30 MG/0.3 ML SYR SQ ONE (16:00)
[2017-02-17] MEDS: PRAVASTATIN SOD 10 MG TAB PO SCH (21:57)
[2017-02-18] MEDS: CEFAZOLIN IV 1,000 MG in DEXTROSE 5% 50ML 50 ML IV SCH (03:38)
[2017-02-18 07:47] VITALS: BP 154/85; PULSE 64; TEMP 36.8; O2SAT 96
[2017-02-18 07:57] VITALS: BP 154/85; PULSE 64; TEMP 36.8; O2SAT 96
--- NOTE | 2017-02-18 07:57 | DISCHARGE SUMMARY ---
PRINCIPAL DIAGNOSIS: Incisional hernia. PROCEDURES: The patient underwent laparoscopic incisional hernia repair. HISTORY OF PRESENT ILLNESS: The patient is a 72-year-old male with a history of incisional hernia with prior repair at the time of laparoscopy and recurrence. The patient was brought in the hospital on 02/15/2017, where he underwent laparoscopic incisional hernia repair which he tolerated very well and was subsequently transferred to the regular nursing floor. The patient has a history of DVT and has been on chronic Coumadin. He was begun back on his Coumadin and placed on subQ heparin. Subsequently, he has received some Lovenox and continues his Coumadin. He did have what appeared to be a mild ileus, although he was passing flatus and did receive some MiraLax, which seemed to help. He is felt stable for discharge today on 02/18/2017 and to be seen in the surgical clinic next week.
[2017-02-18] MEDS ORDERED: DOCUSATE SODIUM/SENNA 50/8.6MG TAB PO SCH (08:00)
[2017-02-18] MEDS: ALLOPURINOL 300 MG TAB PO SCH (08:08)
[2017-02-18] MEDS: LISINOPRIL 20 MG TAB PO SCH (08:08)
[2017-02-18] MEDS: DOXAZosin MESYLATE TAB 2 MG TAB PO SCH (08:08)
[2017-02-18] MEDS: DILTIAZEM HCL 180 MG CAPCR PO SCH (08:09)
[2017-04-22] MEDS ORDERED: MECL1TAB42 PO (10:24)
[2017-05-27] MEDS ORDERED: CLB/200 PO (13:27)
== END 2017-02-18 09:00 | disposition home or self-care (01) ==
LOC: C.ACU 08:28 → C.MSW 11:23 → ENRESERV 11:38
PROVIDERS: ADMIT Surgery; ATTEND Surgery
DX: K43.2 Incisional hernia without obstruction or gangrene (principal); N40.1 Benign prostatic hyperplasia with lower urinary tract symptoms; N13.8 Other obstructive and reflux uropathy; I87.2 Venous insufficiency (chronic) (peripheral); D68.51 Activated protein C resistance; D68.52 Prothrombin gene mutation; I10 Essential (primary) hypertension; E78.00 Pure hypercholesterolemia, unspecified; I47.2 Ventricular tachycardia; Z79.01 Long term (current) use of anticoagulants; Z86.718 Personal history of other venous thrombosis and embolism; Z86.711 Personal history of pulmonary embolism; Z87.891 Personal history of nicotine dependence; Z79.899 Other long term (current) drug therapy

== ENCOUNTER 2017-04-16 10:31 | Inpatient (IN) | payer BC, OTHER ==
[~2017-04-16] VITALS: Ht 185.4 cm; Wt 92.0 kg
[~2017-04-16 10:31] MED LIST changes: -CEFAZOLIN 2000 MG/60 ML D5W IV SCH; +CEPH500C2 PO; +HYDR-5688 PO; -LACTATED RINGER'S 1000ML 1,000 ML IV SCH; +LVNIS40 SQ; -MISSING PHYSICIAN SIGNATURE ON ORDER SCH
[2017-04-16] MEDS ORDERED: SODIUM CHLORIDE 0.9% 500ML 500 ML IV STA (12:00)
[2017-04-16] MEDS ORDERED: MECLIZINE HCL 25 MG TAB PO STA (12:00)
[2017-04-16 12:09] LABS: BASO % 0.7 %; BASO ABS # 0.05 K/uL (0-0.2); COMPLETE YES; EOS % 1.2 %; HEMATOCRIT 44.5 % (42-52); IG% 0.4 %; LYMPH ABS # 1.59 K/uL (1.2-3.4); MEAN CELL VOLUME 92.3 fL (80-100); MEAN CORPUSCULAR HEMOGLOBIN 31.3 pg (25-34); MEAN CORPUSCULAR HGB CONC 33.9 g/dl (32-36); MEAN PLATELET VOLUME 9.9 fL (7.4-10.4); MONO % 7.6 %; NEUT % 68.1 %; PLATELET COUNT 276 K/uL (130-400); RED BLOOD COUNT 4.82 M/uL (4.7-6.1); WHITE BLOOD COUNT 7.22 K/uL (4.8-10.8)
[2017-04-16 12:27] LABS: ALT/SGPT 22 U/L (12-78); AST/SGOT 18 U/L (15-37); BLOOD UREA NITROGEN 13 mg/dl (7-18); BUN/CREATININE RATIO 9.6 (10-20); CALCIUM 8.4 mg/dl (8.5-10.1); CARBON DIOXIDE 25 mmol/L (21-32); CHLORIDE 109 mmol/L (98-107); GLUCOSE 102 mg/dl (70-99); SODIUM 140 mmol/L (136-145)
[2017-04-16 12:31] LABS: ALKALINE PHOSPHATASE 105 U/L (45-117)
--- NOTE | 2017-04-16 12:33 | DIAGNOSTIC IMAGING REPORT ---
CHEST ONE VIEW PORTABLE CLINICAL HISTORY: EVALUATE WEAKNESS HYPERTENSION COMPARISON STUDY: 07/10/2015 FINDINGS: The heart is normal in size. There are linear bibasilar opacities likely atelectatic. There is no failure. There is no lobar consolidation. There is minimal blunting of the left lateral costophrenic angle. [ IMPRESSION: Linear bibasilar opacities, likely atelectatic. Electronically signed by: Panchito Snowden M.D. 04/16/2017 12:32 PM Dictated Date/Time: 04/16/2017 12:29 PM
--- NOTE | 2017-04-16 12:50 | DIAGNOSTIC IMAGING REPORT ---
CT HEAD WITHOUT CONTRAST (CT) CLINICAL HISTORY: Change in mental status. Weakness. COMPARISON STUDY: 11/27/2011 TECHNIQUE: Axial CT of the brain is performed from the vertex to the skull base. IV contrast was not administered for this examination. A dose lowering technique was utilized adhering to the principles of ALARA. CT DOSE: 638.56 mGycm FINDINGS: No intra or extra-axial mass lesions are visualized. There is no CT evidence of acute cortical infarction. There is no evidence of midline shift. There is no acute hemorrhage. No calvarial fractures are visualized. There are patchy white matter hypodensities likely on a small vessel basis. Small basal ganglial lacunar infarcts are suspected. There is no evidence of pathologic ventricular dilatation. There is no evidence of acute sinusitis IMPRESSION: 1. Slight progression in the white matter hypodensities, likely on a small vessel basis 2. Interval development of small basal ganglia lacunar infarcts 3. No evidence of acute hemorrhage Electronically signed by: Panchito Snowden M.D. 04/16/2017 12:48 PM Dictated Date/Time: 04/16/2017 12:46 PM
[2017-04-16 13:35] LABS: INR 2.6 (0.9-1.1); PARTIAL THROMBOPLASTIN RATIO 1.5; PROTHROMBIN TIME (PATIENT) 28.6 SECONDS (9.0-12.0)
[2017-04-16] MEDS ORDERED: ASPIRIN 81 MG CHEW PO STA (13:36)
[2017-04-16 13:44] LABS: URINE APPEARANCE CLEAR (CLEAR); URINE BILIRUBIN NEG (NEG); URINE COLOR YELLOW; URINE NITRITE NEG (NEG); URINE PH 6.5 (4.5-7.5); URINE SPECIFIC GRAVITY 1.011 (1.000-1.030); UROBILINOGEN NEG (NEG)
[2017-04-16 13:53] LABS: MANUAL MICROSCOPIC REQUIRED? NO; REVIEW REQ? NO
[2017-04-16] MEDS ORDERED: HYDROCODONE/ACETAMOPHEN 5/325MG TAB PO PRN (14:45)
[2017-04-16] MEDS ORDERED: WARFARIN PO SCH (14:45)
[2017-04-16] MEDS ORDERED: ACETAMINOPHEN 325 MG TAB PO PRN (15:00)
[2017-04-16] MEDS ORDERED: ALUMINUM/MAGNESIUM/SIMETH (MAALOX MAX) 30 ML UDC PO PRN (15:00)
[2017-04-16] MEDS ORDERED: PHARMACIST DISCHARGE MED REC CONSULT PRN (15:00)
[2017-04-16] MEDS ORDERED: POLYETHYLENE (MIRALAX) 17 GM PACK PO PRN (15:00)
[2017-04-16] MEDS ORDERED: ONDANSETRON INJ 2 MG/ML 2 ML VIAL IV PRN (15:00)
[2017-04-16] MEDS ORDERED: MAGNESIUM HYDROXIDE SUSP 30 ML UDC PO PRN (15:00)
--- NOTE | 2017-04-16 15:38 | History and Physical ---
History & Physical Date & Time of Service: Apr 16, 2017 at 14:46 Chief Complaint: High Blood Pressure, Pounding In Chest Primary Care Physician: Dillon Calixto M.D. History of Present Illness Source: patient 72 y/o M Hx anticardiolipin AB, Prothrombin mutation, multiple DVTs, HTN, HPL. Presents with dizziness and fleeting visual disturbances - described as trailing - for 2-3 days. 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 He is able to maintain his balance despite feeling dizzy. He denies a RUTH or unilateral weakness. The pt had a CT head on arrival which is concerning for basal gangliar lacunar infarcts. He has been on Coumadin fro several years. His therapy was interrupted 2 mo ago for repair of an umbilical hernia. 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 Smoking Status: Former Smoker Marital Status: Housing status: lives with family Occupational Status: employed Immunizations History of Influenza Vaccine: No History of Tetanus Vaccine?: Yes Tetanus Immunization Date: Sep 06, 2011 History of Pneumococcal: No History of Hepatitis B Vaccine: No Multi-Drug Resistant Organisms History of MDRO: No Allergies Coded Allergies: No Known Allergies (Verified , 04/16/17) Home Medications Scheduled Allopurinol (Zyloprim *), 300 MG PO QAM Diltiazem Hcl Coated Beads (Cardizem Cd), 360 MG PO QAM Doxazosin Mesylate (Cardura *), 2 MG PO QAM Lisinopril (Prinivil), 20 MG PO BID Pravastatin (Pravachol ), 10 MG PO HS Warfarin Sod (Coumadin *), 10 MG PO 3XWK Warfarin Sod (Jantoven), 9 MG PO 4XWK Scheduled PRN Hydrocodone/Acetaminophen 5MG/325MG ([place] 5MG/325MG), 1-2 TABLET PO q 6 hrs PRN for Pain Review of Systems Constitutional: No fever, No chills, No sweats Eyes: + worsening of vision ENT: No hearing loss, No unusual epistaxis, No nasal symptoms Respiratory: No cough, No sputum, No wheezing Cardiovascular: No chest pain, No orthopnea, No PND Abdomen: No pain, No nausea, No vomiting Musculoskeletal: No joint pain Genitourinary - Male: No hematuria, No dysuria, No urinary frequency Neurologic: + vertigo, No memory loss, No paralysis, No weakness Psychiatric: No depression symptoms Endocrine: No fatigue Hematologic / Lymphatic: No abnormal bleeding/bruising Integumentary: No rash Physical Exam Vital Signs Date Time Temp Pulse Resp B/P (MAP) Pulse Ox O2 Delivery O2 Flow Rate FiO2 04/16/17 13:30 58 16 175/87 98 Room Air 04/16/17 12:00 65 15 166/83 97 Room Air 04/16/17 11:18 69 04/16/17 11:10 99 Room Air 04/16/17 11:05 70 16 172/90 99 Room Air 68 164/92 77 137/77 04/16/17 10:39 36.3 68 19 150/86 97 Room Air General Appearance: WD/WN, no apparent distress Head: normocephalic Eyes: normal inspection, EOMI ENT: normal ENT inspection, pharynx normal Neck: supple, no JVD Respiratory/Chest: chest non-tender, lungs clear, no accessory muscle use Cardiovascular: regular rate, rhythm, no edema, no JVD, normal peripheral pulses Abdomen/GI: normal bowel sounds, non tender, soft Back: normal inspection, no CVA tenderness, no muscle spasm, normal range of motion Extremities/Musculoskelatal: normal inspection, no calf tenderness, normal capillary refill, no pedal edema, normal range of motion Neurologic/Psych: 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 as tested, no motor/sensory deficits, alert, normal mood/affect, normal reflexes, oriented x 3 Skin: normal color, warm/dry, no rash Diagnostics Laboratory Results Results Past 24 Hours Test 04/16/17 11:10 04/16/17 12:13 04/16/17 13:04 04/16/17 13:25 Range/Units White Blood Count 7.22 4.8-10.8 K/uL Red Blood Count 4.82 4.7-6.1 M/uL Hemoglobin 15.1 14.0-18.0 g/dL Hematocrit 44.5 42-52 % Mean Corpuscular Volume 92.3 80-100 fL Mean Corpuscular Hemoglobin 31.3 25-34 pg Mean Corpuscular Hemoglobin Concent 33.9 32-36 g/dl Platelet Count 276 130-400 K/uL Mean Platelet Volume 9.9 7.4-10.4 fL Neutrophils (%) (Auto) 68.1 % Lymphocytes (%) (Auto) 22.0 % Monocytes (%) (Auto) 7.6 % Eosinophils (%) (Auto) 1.2 % Basophils (%) (Auto) 0.7 % Neutrophils # (Auto) 4.91 1.4-6.5 K/uL Lymphocytes # (Auto) 1.59 1.2-3.4 K/uL Monocytes # (Auto) 0.55 0.11-0.59 K/uL Eosinophils # (Auto) 0.09 0-0.5 K/uL Basophils # (Auto) 0.05 0-0.2 K/uL RDW Standard Deviation 50.1 36.4-46.3 fL RDW Coefficient of Variation 14.8 11.5-14.5 % Immature Granulocyte % (Auto) 0.4 % Immature Granulocyte # (Auto) 0.03 0.00-0.02 K/uL Sodium Level 140 136-145 mmol/L Potassium Level 4.0 3.5-5.1 mmol/L Chloride Level 109 98-107 mmol/L Carbon Dioxide Level 25 21-32 mmol/L Anion Gap 6.0 3-11 mmol/L Blood Urea Nitrogen 13 7-18 mg/dl Creatinine 1.40 0.60-1.40 mg/dl Est Creatinine Clear Calc Drug Dose 52.3 ml/min Estimated GFR () 57.0 Estimated GFR (Non- 49.1 BUN/Creatinine Ratio 9.6 10-20 Random Glucose 102 70-99 mg/dl Calcium Level 8.4 8.5-10.1 mg/dl Total Bilirubin 0.5 0.2-1 mg/dl Direct Bilirubin 0.1 0-0.2 mg/dl Aspartate Amino Transf (AST/SGOT) 18 15-37 U/L Alanine Aminotransferase (ALT/SGPT) 22 12-78 U/L Alkaline Phosphatase 105 45-117 U/L Troponin I < 0.015 0-0.045 ng/ml Total Protein 7.6 6.4-8.2 gm/dl Albumin 3.7 3.4-5.0 gm/dl Bedside Glucose 93 70-99 mg/dl Prothrombin Time 28.6 9.0-12.0 SECONDS Prothromb Time International Ratio 2.6 0.9-1.1 Activated Partial Thromboplast Time 37.9 21.0-31.0 SECONDS Partial Thromboplastin Ratio 1.5 Urine Color YELLOW Urine Appearance CLEAR CLEAR Urine pH 6.5 4.5-7.5 Urine Specific [place] 1.011 1.000-1.030 Urine Protein NEG NEG Urine Glucose (UA) NEG NEG Urine Ketones NEG NEG Urine Occult Blood NEG NEG Urine Nitrite NEG NEG Urine Bilirubin NEG NEG Urine Urobilinogen NEG NEG Urine Leukocyte Esterase NEG NEG Diagnostic Radiology CT head 1. Slight progression in the white matter hypodensities, likely on a small vessel basis 2. Interval development of small basal ganglia lacunar infarcts 3. No evidence of acute hemorrhage Normal EKG Impression Assessment and Plan 72 y/o M Hx anticardiolipin AB, Prothrombin mutation, multiple DVTs, HTN, HPL. Presents with dizziness and fleeting visual disturbances - described as trailing - for 2-3 days. 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 He is able to maintain his balance despite feeling dizzy. He denies a RUTH or unilateral weakness. The pt had a CT head on arrival which is concerning for basal gangliar lacunar infarcts. He has been on Coumadin fro several years. His therapy was interrupted 2 mo ago for repair of an umbilical hernia. 1) Dizziness and visual disturbances - LAcunar infarcts are present on a CT - unclear if related - admitted under a CVA protocol - ASA added to reg - statin increased - neuro consulted. Assigned to telemetry with neurochecks. 2) HTN - HTN meds held in context of possible CVA 3) HPL - statin dose increased 4) Hypercoagulable state - INR is therapeutic - will cont Coumadin Full code - anticoagulated Total time for this admit including review of labs, meds, EKG, imaging - discussion with pt and ER attending - 38 min Level of Care Telemetry Resuscitation Status FULL RESUSCITATION VTE Prophylaxis Given or contraindicated: Warfarin (Coumadin)
[2017-04-16] MEDS ORDERED: WARFARIN SOD 10 MG TAB PO SCH (16:00)
--- NOTE | 2017-04-16 16:40 | DIAGNOSTIC IMAGING REPORT ---
MRI OF THE BRAIN WITHOUT CONTRAST CLINICAL HISTORY: Stroke. Vision loss. Dizziness. COMPARISON STUDY: Head CT November 27, 2011 and April 16, 2017. TECHNIQUE: Utilizing a 1.5 [place] magnet and dedicated coil, multiplanar, multiecho imaging of the brain was performed without IV contrast. FINDINGS: There are no areas of restricted diffusion. No acute intracranial hemorrhage, midline shift or mass effect is present. Ventricular system is unremarkable. Basilar cisterns are patent. There are no extra axial collections. Flow-voids for the major intracranial vessels are present. Calvarial signal is unremarkable. There are postoperative findings of the left globe. No intracranial masses identified on this unenhanced exam. Numerous white matter T2 hyperintense foci suggest small vessel disease. IMPRESSION: 1. No acute intracranial findings. 2. Numerous white matter T2 hyperintense foci which likely reflect small vessel disease. Electronically signed by: Dhruv Castro M.D. 04/16/2017 4:39 PM Dictated Date/Time: 04/16/2017 4:35 PM
--- NOTE | 2017-04-16 16:43 | DIAGNOSTIC IMAGING REPORT ---
MRA OF THE NECK WITH AND WITHOUT CONTRAST CLINICAL HISTORY: Stroke. Dizziness. Vision loss. COMPARISON STUDY: None. TECHNIQUE: Unenhanced and contrast-enhanced MRA of the neck was performed. Injection of 9 mL of Gadavist IV was uneventful. NASCET criteria were utilized to estimate the degree of carotid stenosis. FINDINGS: The bilateral common carotid, internal carotid and vertebral arteries are patent. There is mild irregularity due to atherosclerosis. However, there is no significant stenosis. There is no evidence for dissection within the major vasculature of the neck. IMPRESSION: Unremarkable MRA of the neck. Electronically signed by: Dhruv Castro M.D. 04/16/2017 4:41 PM Dictated Date/Time: 04/16/2017 4:39 PM
[2017-04-16 16:46] VITALS: BP 170/96; PULSE 72; TEMP 36.6; O2SAT 98; Ht 185.4 cm; Wt 92.0 kg
--- NOTE | 2017-04-16 17:31 | DIAGNOSTIC IMAGING REPORT ---
MRA OF THE INTRACRANIAL CIRCULATION WITHOUT CONTRAST CLINICAL HISTORY: Stroke. Vision loss. Dizziness. COMPARISON STUDY: Head CT November 27, [address] April 16, 2017. TECHNIQUE: Utilizing a 1.5 [place] magnet and 3-D [id number] technique, unenhanced MRA of the intracranial circulation was obtained. FINDINGS: The bilateral M1, M2, A1 and A2 segments are patent. There is mild irregularity due to atherosclerosis within the bilateral cavernous carotids. There is no high-grade stenosis. No intracranial aneurysm is identified. There is no evidence for dissection. IMPRESSION: Unremarkable MRA of the intracranial circulation for age. Electronically signed by: Dhruv Castro M.D. 04/16/2017 5:29 PM Dictated Date/Time: 04/16/2017 4:09 PM
--- NOTE | 2017-04-16 18:49 | EMERGENCY ROOM VISIT NOTE ---
History Report prepared by Rhea: Franck Prince Under the Supervision of: Dr. dL Morris D.O. First contact with patient: 11:54 Chief Complaint: HYPERTENSION Stated Complaint: HIGH BLOOD PRESSURE, POUNDING IN CHEST History of Present Illness The patient is a 72 year old male who presents to the Emergency Room with complaints of multiple episodes of dizziness that began to occur 6 hours ago. At this time, the patient got up from bed and noticed that when he turned his head to either side, he felt very dizzy. He describes this as the room spinning horizontally. His last episode of dizziness happened two hours ago when he changed his position. While these episodes were occurring, he was also having heart palpitations. He took his blood pressure at home, which was measured at 202/96. He has a past medical history of 3 DVTs, the first of which was a PE. He has had multiple retinal surgeries, with the last one being 1.5 years ago. He was here in the hospital 2 months ago for a hernia repair surgery. He was in the hospital for 3 days because he is on Coumadin. He denies any fevers, cough, chest pain, shortness of breath, nausea, diarrhea, weakness, numbness, or abnormal urinary symptoms. He notes that his Coumadin levels are high. Source of History: patient Onset: 6 hours ago Position: other (global) Symptom Intensity: Multiple episodes Quality: other (Dizziness) Timing: resolved Modifying Factors (Worsening): movement (Head movement) Associated Symptoms: No fevers, No cough, No chest pain, No SOB, No nausea, No vomiting, No diarrhea, No urinary symptoms, No weakness, No numbness Review of Systems See HPI for pertinent positives & negatives. A total of 10 systems reviewed and were otherwise negative. Past Medical & Surgical Medical Problems: (1) Anticardiolipin Antibody (2) ANTICOAGULANTS,LT,CURRENT USE (3) CVA (cerebral vascular accident) (4) DEEP PHLEBITIS-LEG NEC (5) Dizzy (6) HX-VENOUS THROMBOSIS&EMBOLISM (7) Incisional hernia (8) KNEE JOINT REPLACEMENT STATUS (9) orhtostatic hypotension (10) Prothrombin Gene Mutation Family History Cancer Heart disease Hypertension Social History Smoking Status: Former Smoker Smokeless Tobacco Use: No Alcohol Use: occasionally Drug Use: none Marital Status: Housing Status: lives with family Occupation Status: employed Current/Historical Medications Scheduled Allopurinol (Zyloprim *), 300 MG PO QAM Diltiazem Hcl Coated Beads (Cardizem Cd), 360 MG PO QAM Doxazosin Mesylate (Cardura *), 2 MG PO QAM Lisinopril (Prinivil), 20 MG PO BID Pravastatin (Pravachol ), 10 MG PO HS Warfarin Sod (Coumadin *), 10 MG PO 3XWK Warfarin Sod (Jantoven), 9 MG PO 4XWK Scheduled PRN Hydrocodone/Acetaminophen 5MG/325MG ([place] 5MG/325MG), 1-2 TABLET PO q 6 hrs PRN for Pain Allergies Coded Allergies: No Known Allergies (Verified , 04/16/17) Physical Exam Vital Signs Date Time Temp Pulse Resp B/P (MAP) Pulse Ox O2 Delivery O2 Flow Rate FiO2 04/16/17 13:30 58 16 175/87 98 Room Air 04/16/17 12:00 65 15 166/83 97 Room Air 04/16/17 11:18 69 04/16/17 11:10 99 Room Air 04/16/17 11:05 70 16 172/90 99 Room Air 68 164/92 77 137/77 04/16/17 10:39 36.3 68 19 150/86 97 Room Air Physical Exam GENERAL: alert, well appearing, well nourished, no distress, non-toxic, sitting up in bed. EYE EXAM: normal conjunctiva, PERRL and EOM's intact OROPHARYNX: no exudate, no erythema, lips, buccal mucosa, and tongue normal and mucous membranes are moist NECK: supple, no nuchal rigidity, no adenopathy, non-tender LUNGS: Clear to auscultation. Normal chest wall mechanics HEART: no murmurs, S1 normal and S2 normal ABDOMEN: abdomen soft, non-tender, normo-active bowel sounds, no masses, no rebound or guarding. BACK: Back is symmetrical on inspection and there is no deformity, no midline tenderness, no CVA tenderness. SKIN: no rashes and no bruising UPPER EXTREMITIES: upper extremities are normal. LOWER EXTREMITIES: No pitting edema. NEURO EXAM: Normal sensorium, cranial nerves II-XII intact, normal speech, no weakness of arms, no weakness of legs. Rapid movement of upper extremities intact bilaterally. Medical Decision & Procedures ER Provider Diagnostic Interpretation: Radiology results as stated below per my review and the radiologist's interpretation: CT HEAD WITHOUT CONTRAST (CT) CLINICAL HISTORY: Change in mental status. Weakness. COMPARISON STUDY: 11/27/2011 TECHNIQUE: Axial CT of the brain is performed from the vertex to the skull base. IV contrast was not administered for this examination. A dose lowering technique was utilized adhering to the principles of ALARA. CT DOSE: 638.56 mGycm FINDINGS: No intra or extra-axial mass lesions are visualized. There is no CT evidence of acute cortical infarction. There is no evidence of midline shift. There is no acute hemorrhage. No calvarial fractures are visualized. There are patchy white matter hypodensities likely on a small vessel basis. Small basal ganglial lacunar infarcts are suspected. There is no evidence of pathologic ventricular dilatation. There is no evidence of acute sinusitis IMPRESSION: 1. Slight progression in the white matter hypodensities, likely on a small vessel basis 2. Interval development of small basal ganglia lacunar infarcts 3. No evidence of acute hemorrhage Electronically signed by: Panchito Snowden M.D. 04/16/2017 12:48 PM Dictated Date/Time: 04/16/2017 12:46 PM CHEST ONE VIEW PORTABLE CLINICAL HISTORY: EVALUATE WEAKNESS HYPERTENSION COMPARISON STUDY: 07/10/2015 FINDINGS: The heart is normal in size. There are linear bibasilar opacities likely atelectatic. There is no failure. There is no lobar consolidation. There is minimal blunting of the left lateral costophrenic angle. [ IMPRESSION: Linear bibasilar opacities, likely atelectatic. Electronically signed by: Panchito Snowden M.D. 04/16/2017 12:32 PM Dictated Date/Time: 04/16/2017 12:29 PM Laboratory Results 04/16/17 11:10 Red Blood Count 4.82, Mean Corpuscular Volume 92.3, Mean Corpuscular Hemoglobin 31.3, Mean Corpuscular Hemoglobin Concent 33.9, Mean Platelet Volume 9.9, Neutrophils (%) (Auto) 68.1, Lymphocytes (%) (Auto) 22.0, Monocytes (%) (Auto) 7.6, Eosinophils (%) (Auto) 1.2, Basophils (%) (Auto) 0.7, Neutrophils # (Auto) 4.91, Lymphocytes # (Auto) 1.59, Monocytes # (Auto) 0.55, Eosinophils # (Auto) 0.09, Basophils # (Auto) 0.05 04/16/17 11:10 Test 04/16/17 11:10 04/16/17 12:13 04/16/17 13:04 04/16/17 13:25 White Blood Count 7.22 K/uL (4.8-10.8) Red Blood Count 4.82 M/uL (4.7-6.1) Hemoglobin 15.1 g/dL (14.0-18.0) Hematocrit 44.5 % (42-52) Mean Corpuscular Volume 92.3 fL (80-100) Mean Corpuscular Hemoglobin 31.3 pg (25-34) Mean Corpuscular Hemoglobin Concent 33.9 g/dl (32-36) Platelet Count 276 K/uL (130-400) Mean Platelet Volume 9.9 fL (7.4-10.4) Neutrophils (%) (Auto) 68.1 % Lymphocytes (%) (Auto) 22.0 % Monocytes (%) (Auto) 7.6 % Eosinophils (%) (Auto) 1.2 % Basophils (%) (Auto) 0.7 % Neutrophils # (Auto) 4.91 K/uL (1.4-6.5) Lymphocytes # (Auto) 1.59 K/uL (1.2-3.4) Monocytes # (Auto) 0.55 K/uL (0.11-0.59) Eosinophils # (Auto) 0.09 K/uL (0-0.5) Basophils # (Auto) 0.05 K/uL (0-0.2) RDW Standard Deviation 50.1 fL (36.4-46.3) RDW Coefficient of Variation 14.8 % (11.5-14.5) Immature Granulocyte % (Auto) 0.4 % Immature Granulocyte # (Auto) 0.03 K/uL (0.00-0.02) Anion Gap 6.0 mmol/L (3-11) Est Creatinine Clear Calc Drug Dose 52.3 ml/min Estimated GFR () 57.0 Estimated GFR (Non- 49.1 BUN/Creatinine Ratio 9.6 (10-20) Calcium Level 8.4 mg/dl (8.5-10.1) Total Bilirubin 0.5 mg/dl (0.2-1) Direct Bilirubin 0.1 mg/dl (0-0.2) Aspartate Amino Transf (AST/SGOT) 18 U/L (15-37) Alanine Aminotransferase (ALT/SGPT) 22 U/L (12-78) Alkaline Phosphatase 105 U/L (45-117) Troponin I < 0.015 ng/ml (0-0.045) Total Protein 7.6 gm/dl (6.4-8.2) Albumin 3.7 gm/dl (3.4-5.0) Bedside Glucose 93 mg/dl (70-99) Prothrombin Time 28.6 SECONDS (9.0-12.0) Prothromb Time International Ratio 2.6 (0.9-1.1) Activated Partial Thromboplast Time 37.9 SECONDS (21.0-31.0) Partial Thromboplastin Ratio 1.5 Urine Color YELLOW Urine Appearance CLEAR (CLEAR) Urine pH 6.5 (4.5-7.5) Urine Specific [place] 1.011 (1.000-1.030) Urine Protein NEG (NEG) Urine Glucose (UA) NEG (NEG) Urine Ketones NEG (NEG) Urine Occult Blood NEG (NEG) Urine Nitrite NEG (NEG) Urine Bilirubin NEG (NEG) Urine Urobilinogen NEG (NEG) Urine Leukocyte Esterase NEG (NEG) Laboratory results per my review. Medications Administered Medications (Trade) Dose Ordered Sig/Donnie Route Start Time Stop Time Status Last Admin Dose Admin Sodium Chloride 500 ml @ 999 mls/hr Q31M STAT IV 04/16/17 12:00 04/16/17 12:30 DC 04/16/17 12:10 999 MLS/HR Meclizine HCl (Antivert Tab) 25 mg NOW STAT PO 04/16/17 12:00 04/16/17 12:02 DC 04/16/17 12:11 25 MG ECG Indication: other (Dizziness) Rate (beats per minute): 64 Rhythm: sinus rhythm Findings: no ectopy, other (Normal axis, low voltage) ED Course ED COURSE: Vital signs were reviewed and showed hypertension. The patients medical record was reviewed The above diagnostic studies were performed and reviewed. ED treatments and interventions as stated above. 1154: The patient was evaluated in room C3. A complete history and physical examination was performed. 1200: Ordered Antivert Tab 25 mg PO, Sodium Chloride 500 ml @ 999 mls/hr IV 1336: Ordered Aspirin 81 mg PO 1338: Upon reevaluation, the patient is resting. I discussed my findings with the patient and he understands and agrees with the treatment plan. Based on the patients age, coexisting illnesses, exam and lab findings the decision to treat as an inpatient was made. The patient remained stable while under my care. The patient will be evaluated by Dr. Karla CASTELLANOS, for further management. Medical Decision Differential diagnosis includes etiologies such as benign positional vertigo, dehydration, hypovolemia, anemia, tumor, infection, hypoglycemia, electrolyte abnormalities, cardiac sources, intracerebral event, toxicologic, neurologic, as well as others were entertained. Patient is a 72-year-old male who presents the ER for intermittent dizziness with changing in positions since 6 AM this morning. He does take Coumadin. He notes he has not had any symptoms since 10 AM. No weakness or numbness of his arms or legs. He is completely neurologically intact. CT head shows what appeared to be new strokes in the basal ganglia. He was given fluids, aspirin and Antivert initially. Patient is currently has baseline. He was updated bedside. He was admitted for dizziness along with a CVA and hypertension. Medication Reconcilliation Current Medication List: was personally reviewed by me Blood Pressure Screening Patient's blood pressure: Elevated blood pressure Blood pressure disposition: Referred to PCP Consults Time Called: [phone] Consulting Physician: Dr. Karla CASTELLANOS Returned Call: [phone] I reviewed the patient's case with him. He will evaluate the patient for further management. Impression Primary Impression: CVA (cerebral vascular accident) Additional Impression: Dizzy Scribe Attestation The scribe's documentation has been prepared under my direction and personally reviewed by me in its entirety. I confirm that the note above accurately reflects all work, treatment, procedures, and medical decision making performed by me. Departure Information Dispostion Being Evaluated By Hospitalist Dillon Rutledge M.D. (PCP) Patient Instructions My [facility] Stroke History Time Last Known Well 6 hours ago Stroke t-PA Criteria Reviewed Does NOT meet criteria for t-PA Reason t-PA Not Given Treatment not indicated Problem Qualifiers Primary Impression: CVA (cerebral vascular accident) CVA mechanism: unspecified Qualified Codes: I63.9 - Cerebral infarction, unspecified
[2017-04-16 19:53] VITALS: BP_SYST 141; BP_SYST 164; BP_SYST 176; BP_DIAS 82; BP_DIAS 84; BP_DIAS 85; PULSE 58; PULSE 65; PULSE 72; TEMP 36.5; O2SAT 96
[2017-04-16] MEDS ORDERED: PRAVASTATIN SOD 20 MG TAB PO SCH (21:00)
[2017-04-16 23:31] VITALS: BP_SYST 123; BP_SYST 151; BP_SYST 168; BP_DIAS 76; BP_DIAS 84; BP_DIAS 87; PULSE 49; PULSE 56; PULSE 65; TEMP 36.7; O2SAT 97
[2017-04-17] VITALS (8 sets, daily range): BP systolic 145–183; BP diastolic 89–100; PULSE 55–96; TEMP 36.7–36.8; O2SAT 96–97
[2017-04-17 08:34] LABS: ESTIMATED AVERAGE GLUCOSE 123 mg/dl; HA1C FLAG Normal (Normal)
[2017-04-17] MEDS ORDERED: DOXAZosin MESYLATE TAB 2 MG TAB PO SCH (09:00)
[2017-04-17] MEDS ORDERED: ASPIRIN 81 MG ECTAB PO SCH (09:00)
[2017-04-17] MEDS ORDERED: ATORVASTATIN 40 MG TAB PO SCH (09:00)
[2017-04-17] MEDS ORDERED: DILTIAZEM HCL 180 MG CAPCR PO SCH (09:00)
[2017-04-17 09:02] LABS: BUN/CREATININE RATIO 11.3 (10-20); CALCIUM 8.4 mg/dl (8.5-10.1); CREATININE 1.2 mg/dl (0.60-1.40)
[2017-04-17 09:05] LABS: CHOLESTEROL/HDL RATIO 3.8
[2017-04-17 09:30] LABS: BASO % 0.8 %; BASO ABS # 0.05 K/uL (0-0.2); COMPLETE YES; EOS % 3.5 %; HEMATOCRIT 41.5 % (42-52); IG% 0.3 %; LYMPH % 27.9 %; LYMPH ABS # 1.75 K/uL (1.2-3.4); MEAN CELL VOLUME 91.6 fL (80-100); MEAN CORPUSCULAR HEMOGLOBIN 30.2 pg (25-34); MEAN PLATELET VOLUME 9.9 fL (7.4-10.4); MONO % 7.6 %; NEUT % 59.9 %; PLATELET COUNT 273 K/uL (130-400); RED BLOOD COUNT 4.53 M/uL (4.7-6.1); WHITE BLOOD COUNT 6.28 K/uL (4.8-10.8)
--- NOTE | 2017-04-17 11:12 | Neurology Consultation ---
Neurology Consultation Date of Consultation: Apr 17, 2017. Attending Physician: Bryce Acosta M.D. Primary Care Physician: Dillon Calixto M.D. Reason for Consultation: Concern for stroke History of Present Illness Source: patient, hospital records This is a 72-year-old mostly right-handed male who presents with a brief episode of dizziness and visual disturbance after turning over in bed. He reports that there was a sense of movement. It is seemed like his vision was moving to the side. There is no visual loss. No double vision. Lasted only a few seconds and then recurred for a few seconds when he turned over the other way in bed. He is concerned that possibly this was related to his history of retinal detachment and he called his sand analyst who recommended that he go to the emergency room for evaluation. He does report that the visual disturbance was unlike what he's had in the past. He is never had these symptoms before. He denies any major hearing loss or tinnitus. No recent illnesses. No previous episodes of vertigo. He denies any focal numbness or weakness with this event. There is no loss of vision. No loss of speech. No loss of coordination or ability to walk. Patient did drive himself to the emergency room. He did feel off driving to the emergency room but this could've partially been due to stress and anxiety over what was happening. No recurrence of symptoms. He feels basically at his neurological baseline this morning. He is concerned about his blood pressure being up, but his blood pressure medications have been held because of stroke protocol. MRI of the brain report and images were reviewed by myself. The patient has moderate his T2 hyperintensities in the subcortical white matter likely consistent with small vessel ischemic disease although could not rule out small embolic events in the past. Patient does have vascular risk factors including tobacco use, hypertension, and a history of hypercoagulable state. All of these could have contributed to T2 hyperintensities in the past. There is no signs of acute or subacute strokes. CT of the head showed signs concerning for possible small vessel ischemic disease. Nothing concerning for acute stroke. MRA of the head and neck was reviewed. There are some mild atherosclerotic disease but overall unremarkable. Echocardiogram was performed this morning and report is pending. Total cholesterol 170, LDL 100, HDL 45, triglycerides 124. Hemoglobin A1c 5.9 Past Medical/Surgical History Anticardiolipin antibodies, prothrombin gene mutation, hypertension, mild dyslipidemia, history of DVTs, history of retinal detachment status post bilateral eye surgery. Family History Mother with a heart attack. Father with cancer. Nobody in the family with known clotting disorder Social History Patient is normally independent in his activities of daily living. Smokes a cigar occasionally. Drinks 1-2 glasses of wine per day. No illegal drug use. Smoking Status: Former smoker Smokeless Tobacco Use: No Drug Use: none Marital Status: Housing Status: lives with family Occupation Status: employed Allergies Coded Allergies: No Known Allergies (Verified , 04/16/17) Current Inpatient Medications Current Inpatient Medications Medications (Trade) Dose Ordered Sig/Donnie Route Start Time Stop Time Status Last Admin Dose Admin Diltiazem HCl (Cardizem Cd Cap) 360 mg QAM PO 04/17/17 09:00 05/17/17 08:59 04/17/17 07:56 360 MG Doxazosin Mesylate (Cardura Tab) 2 mg QAM PO 04/17/17 09:00 05/17/17 08:59 04/17/17 07:56 2 MG Acetaminophen/ Hydrocodone Bitart ([place] 5/325 Tab) 1 tab Q4H PRN PO 04/16/17 14:45 04/30/17 14:44 Warfarin Sodium (Coumadin Tab) 10 mg MoWeFr@1600 PO 04/16/17 16:00 05/16/17 15:59 04/16/17 19:39 10 MG Atorvastatin Calcium (Lipitor Tab) 40 mg QAM PO 04/17/17 09:00 05/17/17 08:59 04/17/17 07:57 40 MG Miscellaneous Information (Pharmacist Discharge Med Rec Consult) 1 ea UD PRN N/A 04/16/17 15:00 05/16/17 14:59 Acetaminophen (Tylenol Tab) 650 mg Q4H PRN PO 04/16/17 15:00 05/16/17 14:59 Al Hydrox/Mg Hydrox/Simethicone (Maalox Max Susp) 15 ml Q4H PRN PO 04/16/17 15:00 05/16/17 14:59 Magnesium Hydroxide (Milk Of Magnesia Susp) 30 ml Q12H PRN PO 04/16/17 15:00 05/16/17 14:59 Ondansetron HCl (Zofran Inj) 4 mg Q6H PRN IV 04/16/17 15:00 05/16/17 14:59 Polyethylene (Miralax Powder Packet) 17 gm DAILY PRN PO 04/16/17 15:00 05/16/17 14:59 Warfarin Sodium (Coumadin Tab) 9 mg SuTuThSa@1600 PO 04/17/17 16:00 05/17/17 15:59 Review of Systems Complete review of systems otherwise negative except for the above noted in history of present illness Physical Exam Vital Signs (Past 24 Hrs): Date Time Temp Pulse Resp B/P (MAP) Pulse Ox O2 Delivery O2 Flow Rate FiO2 04/17/17 08:00 97 Room Air 04/17/17 07:45 75 145/89 (107) 04/17/17 07:44 96 177/96 (123) 04/17/17 07:42 36.7 55 16 183/93 (123) 97 Room Air 04/17/17 04:00 Room Air 04/17/17 04:00 36.8 55 22 179/93 (121) 96 Room Air 04/17/17 00:00 Room Air 04/16/17 23:31 36.7 49 22 168/84 (112) 97 Room Air 56 151/87 (108) 65 123/76 (92) 04/16/17 20:00 Room Air 04/16/17 19:53 36.5 65 22 164/82 (109) 96 Room Air 58 176/84 (114) 72 141/85 (103) 04/16/17 16:46 36.6 72 18 170/96 98 Room Air 04/16/17 15:42 57 18 156/79 98 04/16/17 15:05 61 16 138/80 98 Room Air 04/16/17 13:30 58 16 175/87 98 Room Air 04/16/17 12:00 65 15 166/83 97 Room Air 04/16/17 11:18 69 04/16/17 11:10 99 Room Air Gen.: Patient is alert and sitting in bed, in no acute distress. HEENT: Normocephalic /atraumatic, no scleral icterus Heart: Regular rate and rhythm Extremities: No gross deformities or rashes noted Neurological examination: Mental status: Patient is alert and oriented x3. Attention and concentration normal for the situation. Good fund of knowledge. Able to give his own history. Speech is fluent without any dysarthria or aphasia noted Cranial nerve: Funduscopic examination was poorly visualized but unremarkable. No papilledema. Pupils equally round and reactive to light. Extraocular muscles intact without nystagmus. No facial asymmetry noted. Facial sensation intact. Tongue is midline. Good palatal elevation. Good shoulder shrug bilaterally. Hearing grossly intact to voice. Strength: 5/5 both proximal and distally in all extremities. There is no arm drift. Tone is normal. Sensation: Grossly intact to light touch in all extremities. Deep tendon reflexes: +1 in bilateral biceps, brachioradialis and patellar. Coordination: Patient had good finger to nose without dysmetria Station within the bed was normal Laboratory Results Past 24 Hours: 04/17/17 06:37 Red Blood Count 4.53, Mean Corpuscular Volume 91.6, Mean Corpuscular Hemoglobin 30.2, Mean Corpuscular Hemoglobin Concent 33.0, Mean Platelet Volume 9.9, Neutrophils (%) (Auto) 59.9, Lymphocytes (%) (Auto) 27.9, Monocytes (%) (Auto) 7.6, Eosinophils (%) (Auto) 3.5, Basophils (%) (Auto) 0.8, Neutrophils # (Auto) 3.76, Lymphocytes # (Auto) 1.75, Monocytes # (Auto) 0.48, Eosinophils # (Auto) 0.22, Basophils # (Auto) 0.05 04/17/17 06:37 Test 04/16/17 11:10 04/16/17 12:13 04/16/17 13:04 04/16/17 13:25 Estimated Average Glucose 123 mg/dl Hemoglobin A1c 5.9 % (4.5-5.6) Total Bilirubin 0.5 mg/dl (0.2-1) Direct Bilirubin 0.1 mg/dl (0-0.2) Aspartate Amino Transf (AST/SGOT) 18 U/L (15-37) Alanine Aminotransferase (ALT/SGPT) 22 U/L (12-78) Alkaline Phosphatase 105 U/L (45-117) Troponin I < 0.015 ng/ml (0-0.045) Total Protein 7.6 gm/dl (6.4-8.2) Albumin 3.7 gm/dl (3.4-5.0) Bedside Glucose 93 mg/dl (70-99) Prothrombin Time 28.6 SECONDS (9.0-12.0) Prothromb Time International Ratio 2.6 (0.9-1.1) Activated Partial Thromboplast Time 37.9 SECONDS (21.0-31.0) Partial Thromboplastin Ratio 1.5 Urine Color YELLOW Urine Appearance CLEAR (CLEAR) Urine pH 6.5 (4.5-7.5) Urine Specific [place] 1.011 (1.000-1.030) Urine Protein NEG (NEG) Urine Glucose (UA) NEG (NEG) Urine Ketones NEG (NEG) Urine Occult Blood NEG (NEG) Urine Nitrite NEG (NEG) Urine Bilirubin NEG (NEG) Urine Urobilinogen NEG (NEG) Urine Leukocyte Esterase NEG (NEG) Test 04/17/17 06:37 White Blood Count 6.28 K/uL (4.8-10.8) Red Blood Count 4.53 M/uL (4.7-6.1) Hemoglobin 13.7 g/dL (14.0-18.0) Hematocrit 41.5 % (42-52) Mean Corpuscular Volume 91.6 fL (80-100) Mean Corpuscular Hemoglobin 30.2 pg (25-34) Mean Corpuscular Hemoglobin Concent 33.0 g/dl (32-36) Platelet Count 273 K/uL (130-400) Mean Platelet Volume 9.9 fL (7.4-10.4) Neutrophils (%) (Auto) 59.9 % Lymphocytes (%) (Auto) 27.9 % Monocytes (%) (Auto) 7.6 % Eosinophils (%) (Auto) 3.5 % Basophils (%) (Auto) 0.8 % Neutrophils # (Auto) 3.76 K/uL (1.4-6.5) Lymphocytes # (Auto) 1.75 K/uL (1.2-3.4) Monocytes # (Auto) 0.48 K/uL (0.11-0.59) Eosinophils # (Auto) 0.22 K/uL (0-0.5) Basophils # (Auto) 0.05 K/uL (0-0.2) RDW Standard Deviation 49.7 fL (36.4-46.3) RDW Coefficient of Variation 14.7 % (11.5-14.5) Immature Granulocyte % (Auto) 0.3 % Immature Granulocyte # (Auto) 0.02 K/uL (0.00-0.02) Anion Gap 7.0 mmol/L (3-11) Est Creatinine Clear Calc Drug Dose 61.0 ml/min Estimated GFR () 68.6 Estimated GFR (Non- 59.2 BUN/Creatinine Ratio 11.3 (10-20) Calcium Level 8.4 mg/dl (8.5-10.1) Triglycerides Level 124 mg/dl (0-150) Cholesterol Level 170 mg/dl (0-200) HDL Cholesterol 45 mg/dl LDL Cholesterol, Calculated 100 mg/dl VLDL Cholesterol, Calculated 25 mg/dl Cholesterol/HDL Ratio 3.8 Imaging As noted above in history of present illness Impression This is a 72-year-old right-handed male who presented with dizziness and a sense of visual movements after turning over in bed, that lasted for a few seconds, likely consistent with an inner ear vertigo-type event. The patient did not have any signs or symptoms specific for stroke or TIA. In general isolated symptoms of confusion, dizziness, vertigo, diplopia, visual disturbance (without focal loss of vision ), syncope, general weakness, or speech disturbance on their own are not specific for ischemic stroke/TIA. There is no signs of acute stroke on MRI. Patient does have signs of moderate cerebral small vessel ischemic disease on MRI that is chronic and could be secondary to history of tobacco use, hypertension, or history of hypercoagulable state before he was on Coumadin. Patient is currently at his neurological baseline. Plan I stopped aspirin as there is no good evidence that aspirin plus Coumadin is more effective for stroke prevention compared to Coumadin alone and tends to increase bleeding risk. Recommend resuming home medications. No recommended medication changes neurologically. Patient may follow up with his primary care physician if he has repeat episodes of dizziness likely consistent with benign positional vertigo. Discussed that meclizine or physical therapy with Abelino maneuver could be done in the future if needed. Discussed that if he has any strokelike symptoms such as hemiplegia, hemisensory loss, visual loss, inability to speak or walk, these would all be indications to return to the emergency room immediately for evaluation. Patient intends to follow up with his sand analyst which I think is reasonable to rule out any other etiologies for his brief visual disturbance. Discussed vascular risk factors with the patient. Discussed regular exercise and healthy diet. Discussed smoking cessation. Vascular risk factor modifications per primary care physician. Neurological recommendations for vascular risk factor modification patients: Blood pressure recommendations 130/80-110/70 Total cholesterol goal 100- 200 and LDL goal less than 100 (at goal) Hemoglobin A1c goal less than 7 (at goal) Encourage cardiovascular exercise at least 3 times a week for 30 minutes. If there is any questions or concerns, feel free to call/page me.
--- NOTE | 2017-04-17 11:17 | ECHOCARDIOGRAM REPORT ---
*NOTICE TO RECEIVING LIBERTARIAN AGENCY This information is strictly Confidential and protected under [place] law. [place] law prohibits you from making any further disclosure of this information unless further disclosure is expressly permitted by the written consent of the person to whom it pertains or is authorized by law. A general authorization for the release of medical or other information is not sufficient for this purpose. Hospital accepts no responsibility if the information is made available to any other person, INCLUDING THE PATIENT. Interpretation Summary * Echocardiogram Report * Name: KIRILL HIGH Study Date: 04/17/2017 07:06 AM * Patient Location: C.2T\S\S230\S\2 HR: 64 * : 1945 (M/d/yyyy) Gender: Male Height: 71 in * Age: 72 yrs Ethnicity: CA Weight: 202 lb * Ordering Physician: Bryce Acosta * Referring Physician: Self, Referred * Performed By: Luis A Kim RCS * * Reason For Study: cva * BSA: 2.1 m2 * -- Conclusions -- * Left ventricular systolic function is normal. * No regional wall motion abnormalities noted. * Ejection Fraction = 60-65%. * There is borderline concentric left ventricular hypertrophy. * Grade I diastolic dysfunction, (abnormal relaxation pattern). * No significant valvular pathology. Procedure Details * A saline contrast injection was performed to assess for cardiac shunting. * The injection was performed through an intravenous line in the left arm. * A total of 9 cc of agitated saline was given. Left Ventricle * The left ventricle is normal in size. * There is borderline concentric left ventricular hypertrophy. * Ejection Fraction = 60-65%. * Left ventricular systolic function is normal. * No regional wall motion abnormalities noted. Right Ventricle * The right ventricle is grossly normal size. * The right ventricular systolic function is normal as assessed by tricuspid annular plane systolic excursion (TAPSE) (normal >1.5 cm). Atria * The left atrial size is normal. * Right atrial size is normal. * No ASD detected; PFO is not assessed. Mitral Valve * The mitral valve anatomy is normal. * There is no mitral valve stenosis. * Significant mitral regurgitation is absent. Tricuspid Valve * The tricuspid valve is not well visualized, but is grossly normal. * There is no tricuspid stenosis. * Significant tricuspid regurgitation is absent. Aortic Valve * The aortic valve is normal in structure and function. * No hemodynamically significant valvular aortic stenosis. * There is no significant aortic regurgitation. Pulmonic Valve * The pulmonary valve is not well seen, but the Doppler examination is normal without significant regurgitation or stenosis. Great Vessels * The aortic root and proximal ascending aorta are normal sized. * The pulmonary artery is not well visualized, but is probably normal size. Pericardium/Pleural * There is no pericardial effusion. Great Vessels * Normal inferior vena cava size and collapsability with sniff indicates a normal right atrial pressure of 3 mmHg Left Ventricular Diastolic Function * Grade I diastolic dysfunction, (abnormal relaxation pattern). MMode 2D Measurements and Calculations IVSd 1.1 cm LVIDd 4.9 cm LVIDs 3.5 cm LVPWd 1.1 cm IVS/LVPW 0.96 FS 28.6 % EDV(Teich) 112.9 ml ESV(Teich) 50.9 ml EF(Teich) 54.9 % EDV(cubed) 117.7 ml ESV(cubed) 42.9 ml EF(cubed) 63.5 % LV mass(C)d 199.3 grams LV mass(C)dI 94.1 grams/m\S\2 SV(Teich) 62.0 ml SI(Teich) 29.3 ml/m\S\2 SV(cubed) 74.8 ml SI(cubed) 35.3 ml/m\S\2 Ao root diam 2.7 cm Ao root area 5.6 cm\S\2 LVOT diam 2.0 cm LVOT area 3.1 cm\S\2 LVAd ap4 30.3 cm\S\2 LVLd ap4 9.4 cm EDV(MOD-sp4) 78.7 ml EDV(sp4-el) 82.8 ml LVAs ap4 12.0 cm\S\2 LVLs ap4 6.5 cm ESV(MOD-sp4) 20.4 ml ESV(sp4-el) 18.5 ml EF(MOD-sp4) 74.1 % EF(sp4-el) 77.6 % LVAd ap2 32.2 cm\S\2 LVLd ap2 8.8 cm EDV(MOD-sp2) 96.9 ml EDV(sp2-el) 99.8 ml LVAs ap2 15.7 cm\S\2 LVLs ap2 7.0 cm ESV(MOD-sp2) 31.2 ml ESV(sp2-el) 29.9 ml EF(MOD-sp2) 67.8 % EF(sp2-el) 70.1 % LVLd %diff -6.44 % EDV(MOD-bp) 90.6 ml LVLs %diff 6.1 % ESV(MOD-bp) 25.5 ml EF(MOD-bp) 71.8 % SV(MOD-sp4) 58.3 ml SI(MOD-sp4) 27.5 ml/m\S\2 SV(MOD-sp2) 65.7 ml SI(MOD-sp2) 31.0 ml/m\S\2 SV(MOD-bp) 65.1 ml SI(MOD-bp) 30.7 ml/m\S\2 SV(sp4-el) 64.3 ml SI(sp4-el) 30.4 ml/m\S\2 SV(sp2-el) 70.0 ml SI(sp2-el) 33.0 ml/m\S\2 Doppler Measurements and Calculations MV E max keira 77.7 cm/sec MV A max keira 69.2 cm/sec MV E/A 1.1 MV dec time 0.15 sec Ao V2 max 100.4 cm/sec Ao max PG 4.0 mmHg Ao max PG (full) 1.9 mmHg BRIANA(V,A) 2.2 cm\S\2 BRIANA(V,D) 2.2 cm\S\2 LV V1 max PG 2.1 mmHg LV V1 max 72.8 cm/sec
--- NOTE | 2017-04-17 12:07 | Discharge Instructions ---
Discharge Instructions Date of Service Apr 17, 2017. Admission Reason for Admission: High Blood Pressure, Pounding In Chest Discharge Discharge Diagnosis / Problem: Dizziness/ possible vertigo Discharge Goals Goal(s): Decrease discomfort, Improve function, Learn about illness, Diagnostic testing Activity Recommendations Activity Limitations: resume your previous activity . Instructions / Follow-Up Instructions / Follow-Up Follow up with PCP in 2 weeks. Please make an appointment with ophthalmology Current Hospital Diet Patient's current hospital diet: AHA Diet (Heart Healthy) Discharge Diet Recommended Diet: AHA Diet (Heart Healthy), Low Sodium Diet (2gm Na) Procedures Procedures Performed: none Pending Studies Studies pending at discharge: no Laboratory Results Hemoglobin A1c Test 04/16/17 11:10 Range/Units Estimated Average Glucose 123 mg/dl Hemoglobin A1c 5.9 H 4.5-5.6 % Lipid Panel Test 04/17/17 06:37 Range/Units Triglycerides Level 124 0-150 mg/dl Cholesterol Level 170 0-200 mg/dl HDL Cholesterol 45 mg/dl Cholesterol/HDL Ratio 3.8 LDL Cholesterol, Calculated 100 mg/dl Medical Emergencies . Who to Call and When: Medical Emergencies: If at any time you feel your situation is an emergency, please call 911 immediately. . Non-Emergent Contact Non-Emergency issues call your: Primary Care Provider . . "Provider Documentation" section prepared by Neil Ron . Seasoner Hand Recommendations Seasoner Hand Recommendations: stopped aspirin as there is no good evidence that aspirin plus Coumadin is more effective for stroke prevention compared to Coumadin alone and tends to increase bleeding risk. Recommend resuming home medications. No recommended medication changes neurologically. Patient may follow up with his primary care physician if he has repeat episodes of dizziness likely consistent with benign positional vertigo. Discussed that meclizine or physical therapy with Abelino maneuver could be done in the future if needed. Discussed that if he has any strokelike symptoms such as hemiplegia, hemisensory loss, visual loss, inability to speak or walk, these would all be indications to return to the emergency room immediately for evaluation. Patient intends to follow up with his toll repairer central office which I think is reasonable to rule out any other etiologies for his brief visual disturbance. Discussed vascular risk factors with the patient. Discussed regular exercise and healthy diet. Discussed smoking cessation. VTE Core Measure Inpt VTE Proph given/why not?: Warfarin (Coumadin)
--- NOTE | 2017-04-17 12:14 | Discharge Summary ---
Discharge Summary Date of Service Apr 17, 2017. Discharge Summary Admission Date: Apr 16, 2017 at 14:59 Discharge Disposition: Home Principal Diagnosis: Vertigo/dizziness Problems/Secondary Diagnoses: Hypertension Immunizations: Have You Had Influenza Vaccine: No History of Tetanus Vaccine?: Yes Tetanus Immunization Date: Sep 06, 2011 History of Pneumococcal: No History of Hepatitis B Vaccine: No Procedures: none Consultations: Neurology Medication Reconciliation Continued Medications: Allopurinol (Zyloprim *) 300 Mg Tab 300 MG PO QAM, 0 Refills Diltiazem Hcl Coated Beads (Cardizem Cd) 180 Mg Cap 360 MG PO QAM, CAP Doxazosin Mesylate (Cardura *) 4 Mg Tab 2 MG PO QAM, 0 Refills Lisinopril (Prinivil) 40 Mg Tab 20 MG PO BID, TAB Pravastatin (Pravachol ) 20 Mg Tab 10 MG PO HS, TAB Warfarin Sod (Coumadin *) 10 Mg Tab 10 MG PO 3XWK, TAB Mon,Wed,Fri Warfarin Sod (Jantoven) 10 Mg Tab 9 MG PO 4XWK, TAB Discontinued Medications: Hydrocodone/Acetaminophen 5MG/325MG (Haworth 5MG/325MG) Tab 1-2 TABLET PO q 6 hrs PRN for Pain, #40 TAB PRN PAIN Discharge Exam Review of Systems: Constitutional: No fever, No chills, No sweats Eyes: No worsening of vision, No eye pain ENT: No hearing loss, No unusual epistaxis Respiratory: No cough, No sputum Cardiovascular: No chest pain, No orthopnea, No edema Abdomen: No nausea, No vomiting, No diarrhea Neurologic: No memory loss, No paralysis, No weakness, No numbness/tingling , No balance problems, No problem reported Psychiatric: No depression symptoms Integumentary: No rash Physical Exam: General Appearance: WD/WN, no apparent distress Eyes: normal inspection, EOMI Neck: supple, no adenopathy Respiratory/Chest: normal breath sounds, no respiratory distress Cardiovascular: regular rate, rhythm, no edema, no gallop, no JVD, no murmur Abdomen / GI: normal bowel sounds, non tender, no organomegaly, no pulsatile mass Extremities: no calf tenderness, normal capillary refill, no pedal edema Neurologic/Psychiatric: occupational therapy assistant II-XII nml as tested, no motor/sensory deficits , alert, normal mood/affect, normal reflexes, oriented x 3 Skin: warm/dry, no rash Lymphatic: no adenopathy Hospital Course Patient is a 72-year-old male who presents the ER for intermittent dizziness with changing in positions since 6 AM this morning. He does take Coumadin. He notes he has not had any symptoms since 10 AM. No weakness or numbness of his arms or legs. He is completely neurologically intact. CT head shows what appeared to be new strokes in the basal ganglia. He was given fluids, aspirin and Antivert initially. Patient is currently has baseline. He was updated bedside. He was admitted for dizziness along with a CVA and hypertension. MRI of the brain report and images were reviewed by neurologist. The patient has moderate his T2 hyperintensities in the subcortical white matter likely consistent with small vessel ischemic disease although could not rule out small embolic events in the past. Patient does have vascular risk factors including tobacco use, hypertension, and a history of hypercoagulable state. All of these could have contributed to T2 hyperintensities in the past. There is no signs of acute or subacute strokes. CT of the head showed signs concerning for possible small vessel ischemic disease. Nothing concerning for acute stroke. MRA of the head and neck was reviewed. There are some mild atherosclerotic disease but overall unremarkable. Echocardiogram was performed this morning and report is pending. Total cholesterol 170, LDL 100, HDL 45, triglycerides 124. Hemoglobin A1c 5.9 This is a 72-year-old right-handed male who presented with dizziness and a sense of visual movements after turning over in bed, that lasted for a few seconds, likely consistent with an inner ear vertigo-type event. The patient did not have any signs or symptoms specific for stroke or TIA. In general isolated symptoms of confusion, dizziness, vertigo, diplopia, visual disturbance (without focal loss of vision ), syncope, general weakness, or speech disturbance on their own are not specific for ischemic stroke/TIA. There is no signs of acute stroke on MRI. Patient does have signs of moderate cerebral small vessel ischemic disease on MRI that is chronic and could be secondary to history of tobacco use, hypertension, or history of hypercoagulable state before he was on Coumadin. Patient is currently at his neurological baseline. Plan per neurology stop aspirin as there is no good evidence that aspirin plus Coumadin is more effective for stroke prevention compared to Coumadin alone and tends to increase bleeding risk. Recommend resuming home medications. No recommended medication changes neurologically. Patient may follow up with his primary care physician if he has repeat episodes of dizziness likely consistent with benign positional vertigo. Discussed that meclizine or physical therapy with Abelino maneuver could be done in the future if needed. Discussed that if he has any strokelike symptoms such as hemiplegia, hemisensory loss, visual loss, inability to speak or walk, these would all be indications to return to the emergency room immediately for evaluation. Patient intends to follow up with his throat cutter which I think is reasonable to rule out any other etiologies for his brief visual disturbance. Discussed vascular risk factors with the patient. Discussed regular exercise and healthy diet. Discussed smoking cessation. Vascular risk factor modifications per primary care physician. Neurological recommendations for vascular risk factor modification patients: Blood pressure recommendations 130/80-110/70 Total cholesterol goal 100- 200 and LDL goal less than 100 (at goal) Hemoglobin A1c goal less than 7 (at goal) Encourage cardiovascular exercise at least 3 times a week for 30 minutes. Total Time Spent: Greater than 30 minutes This includes examination of the patient, discharge planning, medication reconciliation, and communication with other providers. Discharge Instructions Please refer to the electronic Patient Visit Report (Discharge Instructions) for additional information. Follow-Up with PCP in 1 week Additional Copies To Dillon Calixto M.D.
[2017-04-17] MEDS ORDERED: WARFARIN PO SCH ×2 (16:00)
[2017-04-22] MEDS ORDERED: MECL1TAB42 PO (10:24)
[2017-05-27] MEDS ORDERED: CLB/200 PO (13:27)
== END 2017-04-17 12:54 | disposition home or self-care (01) | DRG 149 ==
LOC: C.EDB 10:33 → C.2T 14:59 → ENRESERV 15:17
PROVIDERS: ADMIT Internal Medicine; ATTEND Internal Medicine
DX: R42 Dizziness and giddiness (principal); D68.59 Other primary thrombophilia; D68.52 Prothrombin gene mutation; H53.9 Unspecified visual disturbance; I10 Essential (primary) hypertension; E78.5 Hyperlipidemia, unspecified; Z86.718 Personal history of other venous thrombosis and embolism; Z86.69 Personal history of other diseases of the nervous system and sense organs; Z87.891 Personal history of nicotine dependence; Z82.49 Family history of ischemic heart disease and other diseases of the circulatory system; Z79.01 Long term (current) use of anticoagulants; Z79.899 Other long term (current) drug therapy

== ENCOUNTER → 2017-08-31 | Outpatient (CLI) | payer BC ==
[~2017-08-31] MED LIST changes: -CEPH500C2 PO; +CLB/200 PO; -HYDR-5688 PO; -LVNIS40 SQ; +MECL1TAB42 PO
[2017-08-31 10:24] LABS: CHOLESTEROL/HDL RATIO 3.8
== END | disposition home or self-care (01) ==
LOC: C.LAB1850 08:06
PROVIDERS: ATTEND Internal Medicine Cardiovascular Disease
DX: E78.00 Pure hypercholesterolemia, unspecified (principal)

== ENCOUNTER 2023-03-01 07:34 | Observation (INO) ==
[2023-03-01 08:23] LABS: Basophils # (auto) 0.07 K/uL (0-0.2); Basophils % (auto) 0.9 %; Eosinophils # (auto) 0.13 K/uL (0-0.50); Eosinophils % (auto) 1.6 %; Hematocrit (blood only) 48.8 % (42.0-52.0); Hemoglobin 16.9 g/dl (14.0-18.0); Immature Granulocytes # (auto) 0.03 K/uL (0.01-0.20); Immature Granulocytes % (auto) 0.4 %; Lymphocytes # (auto) 1.73 K/uL (1.2-3.4); Lymphocytes % (auto) 21.5 %; Mean Corpuscular Hemoglobin 31.5 pg (25.0-34.0); Mean Corpuscular Hgb Conc 34.6 g/dL (32.0-36.0); Mean Corpuscular Volume 90.9 fL (80.0-100.0); Mean Platelet Volume 9.6 fL (9.4-12.4); Monocytes # (auto) 0.58 K/uL (0.11-0.59); Monocytes % (auto) 7.2 %; Neutrophils # (auto) 5.49 K/uL (1.40-6.50); Neutrophils % (auto) 68.4 %; Platelet Count 309 K/uL (130-400); RDW Coefficient of Variation 14.2 % (11.5-14.5); RDW Standard Deviation 47.3 fL (36.4-46.3); Red Blood Count 5.37 M/uL (4.70-6.10); White Blood Count 8.03 K/ul (4.8-10.8)
[2023-03-01 08:26] LABS: iSTAT Creatinine 1.1 mg/dl (0.6-1.3); iSTAT Hemoglobin 17.7 g/dl (14.0-18.0); iSTAT Ionized Calcium 1.1 mmol/l (1.12-1.32); iSTAT Potassium 3.8 mmol/L (3.3-5.0)
--- NOTE | 2023-03-01 08:30 | Emergency Department Note ---
Impression & Plan Left leg weakness, Hypertensive urgency, Intermittent lightheadedness ED Provider Note Provider: Julian Davenport MD DATE OF SERVICE: 03/01/2023 CHIEF COMPLAINT: Leg weakness, feeling off HISTORY OF PRESENT ILLNESS: Patient is a 78-year-old gentleman history of factor V Leiden on warfarin, hypertension, and prior left hip surgery last several years ago presenting here today stating for several days his left hip is giving us more issues than normal left leg feeling weaker and has had a fall 2 days ago. Did not strike his head but skinned his left knee. States he is feeling a bit off. Denies acute visual change but has some issues from prior retinal surgery. Denies difficulty with his speech or syncope. States he did feel little bit of vertigo several days ago. Nursing reports that maybe he is having some trouble finding his words but the patient denies. States compliance with home medication. Denies severe pain at this time and denies numbness or weakness in the lower extremities beyond some slight numbness in the top of the left foot. states they are getting out at the gym or at the wall. He came here as he was having some difficulty walking with his left leg. PAST MEDICAL HISTORY: As noted above MEDICATIONS: Reviewed home medications include warfarin SOCIAL HISTORY: PHYSICAL EXAM: GENERAL: alert and oriented in no acute distress on stretcher Head: normocephalic and atraumatic EYES: No injection, discharge or icterus. PERRL, EOMI. NECK: Trachea midline. Supple. ENT: Mucous membranes pink and moist. LUNGS: Airway patent. No retractions. Breath sounds clear with good air entry bilaterally. HEART: Regular rate and rhythm. No chest wall tenderness ABDOMEN: Soft and non-tender, without guarding or rebound. No masses BACK: no left SI joint tenderness. No bilateral flank tenderness. SKIN: Acyanotic, warm, dry, without rashes EXTREMITIES: Without tenderness or deformity with trace bilateral swelling NEUROLOGICAL: No facial droop or slurred speech. Perhaps some slight aphasia. Normal strength and tone in the extremities. Sensation to gross touch normal Other than some slight decrease in sensation over the dorsum of the left foot. EK beats per and normal sinus rhythm with sinus rhythm. No PVC or PAC. No acute ST segment elevation or depression with a QTc of 433 CONTINUOUS CARDIAC MONITORING: was ordered and showed a heart rate of 50s-60s bpm in sinus bradycardia normal sinus rhythm Patient's laboratory studies and imaging reviewed. Differential includes Infection, dehydration, metabolic abnormality, hypo/hyper glycemia, electrolyte disturbance, anemia, hypoxia, cardiac sources, intracerebral event, neurologic, as well as other pathologies. IMPRESSION/MEDICAL DECISION MAKING: No trauma history. Some pain and difficulty with the left leg. Is unclear how acutely worsened since that he states has been ongoing for several days and describes several days of feeling a bit off and vertigo symptoms. Little bit of numbness to top of left foot. Blood pressure severely elevated upon arrival but not in severe discomfort. On warfarin. Sent for CTs of the head and neck to as CVA is on the list of concerns but does not have hemiplegia. Patient blood obtained here without significant leukocytosis or anemia. Doubt this is infectious. No signs of significant electrolyte abnormality or severe renal dysfunction with normal LFTs. Does not seem cardiac in nature. Negative COVID testing. Do question a possible occult CVA here. Again unclear last known well and with his anticoagulation not an indication for thrombolytics. INR therapeutic at 2.4 but states he is normally between the 2-1/2 and 3-1/[address] angiograms as well as CT head without significant stenosis dissection or aneurysm noted however do note a left basal ganglia hypodensity age indeterminant. Blood pressure still significantly and given a dose of his home losartan which he did not yet take this morning. Discussed with him and his the findings. Was able to ambulate to the bathroom but again still states his left leg is feeling off. X-ray of the hip is ordered but I doubt any fracture or dislocation. Question stroke versus hypertensive urgency. Do not want overly aggressively control blood pressure if this is a stroke. Discussed with the hospitalist. DIAGNOSIS: Left leg weakness, hypertensive urgency DISPOSITION: Hospitalist will evaluate Patient was agreeable with this plan. 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) Benign prostatic hyperplasia without urinary obstruction Chest pain Chronic venous insufficiency Deep phlebitis-leg NEC (10/23/12) Edema Former smoker Homocystinuria No pertinent family history No significant social history Orthostatic hypotension (03/17/12) Periumbilical hernia Prothrombin gene mutation (10/23/12) Renal cyst, acquired Umbilical hernia Urinary retention Ventricular tachycardia Surgical History Knee joint replacement status (10/23/12) S/P laparoscopic hernia repair Social History Smoking Status: Never smoker Preferred Language: Greenlandic Feels Safe at Home: Yes Allergies Allergies Allergy/AdvReac Type Severity Reaction Status Date / Time No Known Drug Allergies Allergy Verified 02/16/23 13:24 Home Meds Home Medications Medication Instructions Recorded Confirmed losartan 100 mg tablet 100 mg PO HS #0 tabs 01/06/18 03/01/23 diltiazem HCl 360 mg capsule,24 360 mg PO DAILY ##0 03/05/18 03/01/23 hr,extended release (Tiazac) doxazosin 2 mg tablet 2 mg PO DAILY ##0 03/05/18 03/01/23 pravastatin 10 mg tablet 10 mg PO HS ##0 03/05/18 03/01/23 amoxicillin 500 mg capsule 2,000 mg PO UD PRN dental visit 01/16/21 03/01/23 phytonadione (vitamin K1) 100 mcg See Rx Instructions PO UD 02/05/22 03/01/23 tablet warfarin 5 mg tablet See Rx Instructions PO UD 01/28/23 03/01/23 allopurinol 300 mg tablet 300 mg PO DAILY 03/01/23 03/01/23 Previous Rx's Medication Instructions Recorded furosemide 20 mg tablet 20 mg PO DAILY PRN edema #30 tabs 03/18/21 celecoxib 200 mg capsule (Celebrex) 200 mg PO DAILY PRN Pain 30 days 07/29/22 #30 caps Results & Data (ED) Vital Signs Vital Signs - 24 hr 03/01/23 07:44 03/01/23 08:16 03/01/23 11:34 Temperature 36.4 C L Temperature Source Temporal Artery Scan Pulse Rate 78 60 64 Respiratory Rate 18 22 Respiratory Effort / Characteristics Non-Labored Spontaneous Respiratory Depth Normal Respiratory Pattern Regular Blood Pressure 256/135 H 171/94 H Blood Pressure Mean 175 119 Blood Pressure Position Sitting Pulse Oximetry 96 Oxygen Delivery Method Room Air Sepsis Recent Fever Within 48 Hours No Sepsis New/Unexplained Change in Mental Status N/A Sepsis Action Taken by Nursing No Action Required Laboratory Data 03/01/23 08:01 03/01/23 08:01 Lab Results 03/01/23 03/01/23 03/01/23 Range/Units 08:01 08:01 08:01 WBC 8.03 (4.8-10.8) K/ul RBC 5.37 (4.70-6.10) M/uL Hgb 16.9 (14.0-18.0) g/dl POC Hgb (14.0-18.0) g/dl Hct 48.8 (42.0-52.0) % POC Hct (42-52) % MCV 90.9 (80.0-100.0) fL MCH 31.5 (25.0-34.0) pg MCHC 34.6 (32.0-36.0) g/dL RDW Std Deviation 47.3 H (36.4-46.3) fL RDW Coeff of Sidney 14.2 (11.5-14.5) % Plt Count 309 (130-400) K/uL MPV 9.6 (9.4-12.4) fL Immature Gran % (Auto) 0.4 % Neut % (Auto) 68.4 % Lymph % (Auto) 21.5 % [place] % (Auto) 7.2 % Eos % (Auto) 1.6 % Baso % (Auto) 0.9 % Neut # (Auto) 5.49 (1.40-6.50) K/uL Lymph # (Auto) 1.73 (1.2-3.4) K/uL [place] # (Auto) 0.58 (0.11-0.59) K/uL Eos # (Auto) 0.13 (0-0.50) K/uL Baso # (Auto) 0.07 (0-0.2) K/uL Immature Gran # (Auto) 0.03 (0.01-0.20) K/uL PT 24.6 H (9.0-12.0) Seconds INR 2.4 H (0.9-1.1) POC Sodium (135-144) mmol/L Sodium 138 (136-145) mmol/L POC Potassium (3.3-5.0) mmol/L Potassium 3.8 (3.5-5.1) mmol/L POC Chloride (101-112) mmol/L Chloride 104 (98-107) mmol/L Carbon Dioxide 26 (21-32) mmol/L POC Total CO2 (24-31) mmol/L Anion Gap 8 (3-11) POC Anion Gap (16-25) mmol/L POC BUN (7-18) mg/dl BUN 13 (6-23) mg/dl Creatinine 1.10 (0.6-1.4) mg/dl POC Creatinine (0.6-1.3) mg/dl Est Cr Clr Drug Dosing Not Reportable Est GFR ( Amer) 73.1 ml/min Est GFR (Non-Af Amer) 63.1 ml/min BUN/Creatinine Ratio 11.8 (10-20) Glucose 121 H (70-99(Fasting)) mg/dl POC Glucose (other) (70-99) mg/dl Calcium 9.5 (8.6-10.3) mg/dl POC Ioniz Calcium Mikey (1.12-1.32) mmol/l Magnesium 1.7 (1.7-2.4) mg/dl Total Bilirubin 0.7 (0.2-1.0) mg/dl AST 20 (13-39) U/L ALT 12 (7-52) U/L Alkaline Phosphatase 80 (34-104) U/L Troponin I High Sens 5.6 (0-20) pg/ml Total Protein 8.4 H (6.0-8.3) gm/dl Albumin 4.4 (3.4-5.0) gm/dl Globulin 4.0 (2.5-4.0) gm/dl Albumin/Globulin Ratio 1.1 (0.9-2) Vitamin B12 (180-914) pg/ml Folate (>5.38) ng/ml TSH (0.300-4.500) uIu/ml Urine Color Urine Appearance (Clear) Urine pH (4.5-7.5) Ur Specific [place] (1.000-1.030) Urine Protein (Negative) Urine Glucose (UA) (Negative) Urine Ketones (Negative) Urine Blood (Negative) Urine Nitrite (Negative) Urine Bilirubin (Negative) Urine Urobilinogen (Negative) Ur Leukocyte Esterase (Negative) Urine WBC (Auto) (0-5) /hpf Urine RBC (Auto) (0-4) /hpf U Hyaline Cast (Auto) (0-5) /lpf U Epithel Cells (Auto) (0-5) /lpf Urine Bacteria (Auto) (Negative) SARS-CoV-2, RNA, NAAT (NEGATIVE) 03/01/23 03/01/23 03/01/23 Range/Units 08:01 08:01 08:01 WBC (4.8-10.8) K/ul RBC (4.70-6.10) M/uL Hgb (14.0-18.0) g/dl POC Hgb (14.0-18.0) g/dl Hct (42.0-52.0) % POC Hct (42-52) % MCV (80.0-100.0) fL MCH (25.0-34.0) pg MCHC (32.0-36.0) g/dL RDW Std Deviation (36.4-46.3) fL RDW Coeff of Sidney (11.5-14.5) % Plt Count (130-400) K/uL MPV (9.4-12.4) fL Immature Gran % (Auto) % Neut % (Auto) % Lymph % (Auto) % [place] % (Auto) % Eos % (Auto) % Baso % (Auto) % Neut # (Auto) (1.40-6.50) K/uL Lymph # (Auto) (1.2-3.4) K/uL [place] # (Auto) (0.11-0.59) K/uL Eos # (Auto) (0-0.50) K/uL Baso # (Auto) (0-0.2) K/uL Immature Gran # (Auto) (0.01-0.20) K/uL PT (9.0-12.0) Seconds INR (0.9-1.1) POC Sodium (135-144) mmol/L Sodium (136-145) mmol/L POC Potassium (3.3-5.0) mmol/L Potassium (3.5-5.1) mmol/L POC Chloride (101-112) mmol/L Chloride (98-107) mmol/L Carbon Dioxide (21-32) mmol/L POC Total CO2 (24-31) mmol/L Anion Gap (3-11) POC Anion Gap (16-25) mmol/L POC BUN (7-18) mg/dl BUN (6-23) mg/dl Creatinine (0.6-1.4) mg/dl POC Creatinine (0.6-1.3) mg/dl Est Cr Clr Drug Dosing Est GFR ( Amer) ml/min Est GFR (Non-Af Amer) ml/min BUN/Creatinine Ratio (10-20) Glucose (70-99(Fasting)) mg/dl POC Glucose (other) (70-99) mg/dl Calcium (8.6-10.3) mg/dl POC Ioniz Calcium Mikey (1.12-1.32) mmol/l Magnesium (1.7-2.4) mg/dl Total Bilirubin (0.2-1.0) mg/dl AST (13-39) U/L ALT (7-52) U/L Alkaline Phosphatase (34-104) U/L Troponin I High Sens (0-20) pg/ml Total Protein (6.0-8.3) gm/dl Albumin (3.4-5.0) gm/dl Globulin (2.5-4.0) gm/dl Albumin/Globulin Ratio (0.9-2) Vitamin B12 175 L (180-914) pg/ml Folate 19.63 (>5.38) ng/ml TSH 2.421 (0.300-4.500) uIu/ml Urine Color Urine Appearance (Clear) Urine pH (4.5-7.5) Ur Specific [place] (1.000-1.030) Urine Protein (Negative) Urine Glucose (UA) (Negative) Urine Ketones (Negative) Urine Blood (Negative) Urine Nitrite (Negative) Urine Bilirubin (Negative) Urine Urobilinogen (Negative) Ur Leukocyte Esterase (Negative) Urine WBC (Auto) (0-5) /hpf Urine RBC (Auto) (0-4) /hpf U Hyaline Cast (Auto) (0-5) /lpf U Epithel Cells (Auto) (0-5) /lpf Urine Bacteria (Auto) (Negative) SARS-CoV-2, RNA, NAAT NEGATIVE (NEGATIVE) 03/01/23 03/01/23 Range/Units 08:09 09:48 WBC (4.8-10.8) K/ul RBC (4.70-6.10) M/uL Hgb (14.0-18.0) g/dl POC Hgb 17.7 (14.0-18.0) g/dl Hct (42.0-52.0) % POC Hct 52 (42-52) % MCV (80.0-100.0) fL MCH (25.0-34.0) pg MCHC (32.0-36.0) g/dL RDW Std Deviation (36.4-46.3) fL RDW Coeff of [place] (11.5-14.5) % Plt Count (130-400) K/uL MPV (9.4-12.4) fL Immature Gran % (Auto) % Neut % (Auto) % Lymph % (Auto) % [place] % (Auto) % Eos % (Auto) % Baso % (Auto) % Neut # (Auto) (1.40-6.50) K/uL Lymph # (Auto) (1.2-3.4) K/uL [place] # (Auto) (0.11-0.59) K/uL Eos # (Auto) (0-0.50) K/uL Baso # (Auto) (0-0.2) K/uL Immature Gran # (Auto) (0.01-0.20) K/uL PT (9.0-12.0) Seconds INR (0.9-1.1) POC Sodium 141 (135-144) mmol/L Sodium (136-145) mmol/L POC Potassium 3.8 (3.3-5.0) mmol/L Potassium (3.5-5.1) mmol/L POC Chloride 104 (101-112) mmol/L Chloride (98-107) mmol/L Carbon Dioxide (21-32) mmol/L POC Total CO2 23 L (24-31) mmol/L Anion Gap (3-11) POC Anion Gap 18.0 (16-25) mmol/L POC BUN 13 (7-18) mg/dl BUN (6-23) mg/dl Creatinine (0.6-1.4) mg/dl POC Creatinine 1.1 (0.6-1.3) mg/dl Est Cr Clr Drug Dosing Est GFR ( Amer) ml/min Est GFR (Non-Af Amer) ml/min BUN/Creatinine Ratio (10-20) Glucose (70-99(Fasting)) mg/dl POC Glucose (other) 120 H (70-99) mg/dl Calcium (8.6-10.3) mg/dl POC Ioniz Calcium Mikey 1.10 L (1.12-1.32) mmol/l Magnesium (1.7-2.4) mg/dl Total Bilirubin (0.2-1.0) mg/dl AST (13-39) U/L ALT (7-52) U/L Alkaline Phosphatase (34-104) U/L Troponin I High Sens (0-20) pg/ml Total Protein (6.0-8.3) gm/dl Albumin (3.4-5.0) gm/dl Globulin (2.5-4.0) gm/dl Albumin/Globulin Ratio (0.9-2) Vitamin B12 (180-914) pg/ml Folate (>5.38) ng/ml TSH (0.300-4.500) uIu/ml Urine Color Yellow Urine Appearance Cloudy A (Clear) Urine pH 7.0 (4.5-7.5) Ur Specific [place] 1.014 (1.000-1.030) Urine Protein Negative (Negative) Urine Glucose (UA) Negative (Negative) Urine Ketones Negative (Negative) Urine Blood Negative (Negative) Urine Nitrite Negative (Negative) Urine Bilirubin Negative (Negative) Urine Urobilinogen Negative (Negative) Ur Leukocyte Esterase Negative (Negative) Urine WBC (Auto) 0 (0-5) /hpf Urine RBC (Auto) 0-4 (0-4) /hpf U Hyaline Cast (Auto) 0 (0-5) /lpf U Epithel Cells (Auto) 0-5 (0-5) /lpf Urine Bacteria (Auto) Negative (Negative) SARS-CoV-2, RNA, NAAT (NEGATIVE) Administered Medications Losartan Potassium (Losartan Potassium 50 Mg Tab) [facility] [place] Stop: 03/31/23 09:44 Last Admin: 03/01/23 10:40 Dose: 100 mg Documented By: NDW Discontinued Medications Ioversol (Optiray 320 125ml) 120 ml IV ONCE ONE Stop: 03/01/23 08:51 Last Admin: 03/01/23 08:50 Dose: 120 ml Documented By: KSF Imaging Data Radiologist's Impression: Head CT 03/01/23 08:26 CT OF THE HEAD WITHOUT CONTRAST CLINICAL HISTORY: Left lower extremity weakness, HTN, ?CVA COMPARISON STUDY: MRI of the brain April 16, [address] March 05, 2018. TECHNIQUE: Helical axial images of the head were obtained without IV contrast. Automated exposure control was utilized for the study. A dose lowering technique was utilized adhering to the principles of ALARA. FINDINGS: No acute intracranial hemorrhage, midline shift or mass effect is present. Ventricular system is normal. Basal cisterns are patent. There are no extraaxial collections. White matter hypodensity suggests small vessel disease. A 1.3 cm hypodensity within the left basal ganglia on axial image 13 is more conspicuous than on prior exam. There are no findings to suggest acute dural sinus thrombosis or acute territorial infarct. There are no significant calvarial abnormalities. C the sinuses partially opacified and contains secretions. IMPRESSION: 1. No acute intracranial findings. 2. 1.3 cm left basal ganglia hypodensity, as described above. Although age indeterminate, this is probably chronic and favors an old infarct or small vessel disease. 3. Left sphenoid sinusitis. ACT 112: Negative or not required by law. Electronically signed by: Dhruv Castro M.D. 03/01/2023 8:53 AM Head CTA 03/01/23 08:26 CTA ANGIOGRAPHY OF THE HEAD CLINICAL HISTORY: Left lower extremity weakness, HTN, ?CVA COMPARISON STUDY: MRA of the head April 16, 2017. TECHNIQUE: Helical axial images of the head were obtained following uneventful intravenous administration of 120 cc of Optiray. Sagittal and coronal reconstructions were viewed as well as maximal intensity projections on an independent 3-D workstation. Automated exposure control was utilized for the study. A dose lowering technique was utilized adhering to the principles of ALARA. CT DOSE: 1052.66 mGy.cm FINDINGS: Brain volume is normal. Ventricular system is normal. There are no extra-axial collections. Suspected old infarct within left basal ganglia is noted. White matter hypodensity suggests small vessel disease. No acute intracranial hemorrhage identified on the head CT which will be reported sepa rately. There is left sphenoid sinus mucosal thickening with secretions. There is mild plaque within the bilateral cavernous carotids without stenosis. No central vessel occlusion is identified. There is no intracranial aneurysm. Posterior circulation is intact. IMPRESSION: No central vessel occlusion. No intracranial aneurysm. ACT 112: Negative or not required by law. Electronically signed by: Dhruv Castro M.D. 03/01/2023 9:00 AM Neck CTA 03/01/23 08:26 CT ANGIOGRAPHY OF THE NECK WITH CONTRAST CLINICAL HISTORY: LLE weak, HTN, ?CVA COMPARISON STUDY: MRA of the neck April 2017. Technique: CT angiography of the carotid and vertebral arteries was obtained using Optiray and 3D reconstruction on an independent workstation. NASCET criteria was utilized. Automated exposure control was utilized for the study. A dose lowering technique was utilized adhering to the principles of ALARA. Findings: Multilevel degenerative changes within the cervical spine are present. There is no cervical spine fracture. No cervical lymphadenopathy is noted. There is no stenosis or dissection within the bilateral common carotid, cervical internal carotid or vertebral arteries. There is moderate plaque within the bilateral carotid bifurcations. There is no aneurysm within the neck. Left sphenoid sinus. Calvarial thickening with secretions is incidentally noted. IMPRESSION: No stenosis or dissection within the bilateral common carotid, cervical internal carotid or vertebral arteries. ACT 112: Negative or not required by law. Electronically signed by: Dhruv Castro M.D. 03/01/2023 8:58 AM Hip/Pelvis X-Ray 03/01/23 08:27 XR hip LT 2V w pelvis CLINICAL HISTORY: pain/weak TECHNIQUE: 2 views of the left hip and single frontal view of the pelvis were obtained. Comparison: Comparison is made to hip radiograph 07/10/2019 FINDINGS: There is no evidence of an acute fracture. Left hip arthroplasty is seen. Degenerative changes are seen in the lumbar spine and right hip joint. Vascular calcifications are noted. IMPRESSION: Degenerative changes and postsurgical changes of left hip arthroplasty without evidence of acute fracture. ACT 112: Negative or not required by law. Electronically signed by: Misael Hutson M.D. 03/01/2023 10:53 AM Brain MRI 03/01/23 11:12 MRI OF THE BRAIN WITHOUT IV CONTRAST CLINICAL HISTORY: Left leg weakness/numbness. COMPARISON STUDY: CT of the brain dated 03/01/2023 TECHNIQUE: MRI of the brain was performed utilizing various T1 and T2-weighted sequences in the axial, sagittal, and coronal planes. IV contrast was not administered for this examination. FINDINGS: Brain parenchyma: There is age-related involutional change noting moderate subcortical and periventricular microangiopathic disease. There is no hemorrhage or mass effect. There is no restricted diffusion to suggest acute ischemia. Saenz-white matter differentiation is preserved. No extra-axial fluid collection is seen. The cerebellar tonsils are normal in configuration. Ventricles, sulci, and cisterns: Prominent secondary to involutional change. Pituitary and sella: Unremarkable. Intracranial vasculature: Normal flow voids are maintained at the skull base. Orbits: The bony orbits are grossly intact. Orbital contents are normal as vi sualized noting bilateral ocular lens implants. There has been banding of the left ocular globe. Sinuses and mastoids: There is moderate to advanced mucosal thickening within the left sphenoid sinus. Trace mucosal thickening is present in the left maxillary antrum. The mastoid air cells are clear. Calvarium: Unremarkable. Cervical cord: Partially visualized cervical spinal cord is normal in morphology and signal intensity. IMPRESSION: No acute intracranial abnormality. ACT 112: Negative or not required by law. Electronically signed by: Fred Vargas M.D. 03/01/2023 12:35 PM Discharge Plan Visit Data Chief Complaint: Hip Pain Stated Complaint: hip pain;svison problem ED Provider: Julian Davenport Discharge Problem: Left leg weakness, Hypertensive urgency, Intermittent lightheadedness Patient Disposition: Being Evaluated by Hospitalist Forms Stand Alone Forms: My [facility] Prescriptions Prescriptions: No Action amoxicillin 500 mg capsule 2,000 mg PO UD PRN (Reason: dental visit) warfarin 5 mg tablet See Rx Instructions PO UD Rx Instructions: 7.5mg q Mo/Fr, 10mg x 5 days per [facility] orally use as directed phytonadione (vitamin K1) 100 mcg tablet See Rx Instructions PO UD Rx Instructions: 100mcg po daily per [facility] PO use as directed; losartan 100 mg Tablet 100 mg PO HS Qty: 0 diltiazem HCl [Tiazac] 360 mg Capsule,Extended Release 24 Hr 360 mg PO DAILY Qty: 0 pravastatin 10 mg Tablet 10 mg PO HS Qty: 0 doxazosin 2 mg Tablet 2 mg PO DAILY Qty: 0 celecoxib [Celebrex] 200 mg capsule 200 mg PO DAILY PRN (Reason: Pain) 30 Days Qty: 30 5RF furosemide 20 mg tablet 20 mg PO DAILY PRN (Reason: edema) Qty: 30 0RF allopurinol 300 mg Tablet 300 mg PO DAILY Referrals Referrals: Dillon Calixto [Primary Care Provider] -
[2023-03-01 08:40] LABS: Alanine Aminotransferase 12 U/L (7-52); Albumin Globulin Ratio 1.1 (0.9-2); Albumin Level 4.4 gm/dl (3.4-5.0); Alkaline Phosphatase 80 U/L (34-104); Anion Gap 8 (3-11); Aspartate Aminotransferase 20 U/L (13-39); BUN Creatinine Ratio 11.8 (10-20); Bilirubin,Total 0.7 mg/dl (0.2-1.0); Blood Urea Nitrogen 13 mg/dl (6-23); Calcium 9.5 mg/dl (8.6-10.3); Carbon Dioxide 26 mmol/L (21-32); Chloride 104 mmol/L (98-107); Est GFR (African American) 73.1 ml/min; Est GFR (Non-African American) 63.1 ml/min; Glucose 121 mg/dl (70-99(Fasting)); Magnesium 1.7 mg/dl (1.7-2.4); Potassium 3.8 mmol/L (3.5-5.1); Sodium 138 mmol/L (136-145); Total Protein 8.4 gm/dl (6.0-8.3)
[2023-03-01 08:50] LABS: INR 2.4 (0.9-1.1); Prothrombin Time 24.6 Seconds (9.0-12.0)
[2023-03-01] MEDS ORDERED: OPTIRAY 320 125ml IV ONE (08:50)
--- NOTE | 2023-03-01 08:55 | CT Scan Report ---
CT OF THE HEAD WITHOUT CONTRAST CLINICAL HISTORY: Left lower extremity weakness, HTN, ?CVA COMPARISON STUDY: MRI of the brain April 16, [address] March 05, 2018. TECHNIQUE: Helical axial images of the head were obtained without IV contrast. Automated exposure con trol was utilized for the study. A dose lowering technique was utilized adhering to the principles o f ALARA. FINDINGS: No acute intracranial hemorrhage, midline shift or mass effect is present. Ventricular syst em is normal. Basal cisterns are patent. There are no extraaxial collections. White matter hypodensit y suggests small vessel disease. A 1.3 cm hypodensity within the left basal ganglia on axial image 13 is more conspicuous than on prior exam. There are no findings to suggest acute dural sinus thrombosi s or acute territorial infarct. There are no significant calvarial abnormalities. C the sinuses parti ally opacified and contains secretions. IMPRESSION: 1. No acute intracranial findings. 2. 1.3 cm left basal ganglia hypodensity, as described above. Although age indeterminate, this is pro bably chronic and favors an old infarct or small vessel disease. 3. Left sphenoid sinusitis. ACT 112: Negative or not required by law. Electronically signed by: Dhruv Castro M.D. 03/01/2023 8:53 AM
--- NOTE | 2023-03-01 08:59 | CT Scan Report ---
CT ANGIOGRAPHY OF THE NECK WITH CONTRAST CLINICAL HISTORY: LLE weak, HTN, ?CVA COMPARISON STUDY: MRA of the neck April 2017. Technique: CT angiography of the carotid and vertebral arteries was obtained using Optiray and 3D rec onstruction on an independent workstation. NASCET criteria was utilized. Automated exposure control was utilized for the study. A dose lowering technique was utilized adhering to the principles of ALA RA. Findings: Multilevel degenerative changes within the cervical spine are present. There is no cervical spine fracture. No cervical lymphadenopathy is noted. There is no stenosis or dissection within the bilateral common carotid, cervical internal carotid or vertebral arteries. There is moderate plaque w ithin the bilateral carotid bifurcations. There is no aneurysm within the neck. Left sphenoid sinus. Calvarial thickening with secretions is incidentally noted. IMPRESSION: No stenosis or dissection within the bilateral common carotid, cervical internal carotid or vertebral arteries. ACT 112: Negative or not required by law. Electronically signed by: Dhruv Castro M.D. 03/01/2023 8:58 AM
--- NOTE | 2023-03-01 09:01 | CT Scan Report ---
CTA ANGIOGRAPHY OF THE HEAD CLINICAL HISTORY: Left lower extremity weakness, HTN, ?CVA COMPARISON STUDY: MRA of the head April 16, 2017. TECHNIQUE: Helical axial images of the head were obtained following uneventful intravenous administr ation of 120 cc of Optiray. Sagittal and coronal reconstructions were viewed as well as maximal inten sity projections on an independent 3-D workstation. Automated exposure control was utilized for the study. A dose lowering technique was utilized adhering to the principles of ALARA. CT DOSE: 1052.66 mGy.cm FINDINGS: Brain volume is normal. Ventricular system is normal. There are no extra-axial collections. Suspected old infarct within left basal ganglia is noted. White matter hypodensity suggests small ve ssel disease. No acute intracranial hemorrhage identified on the head CT which will be reported separ ately. There is left sphenoid sinus mucosal thickening with secretions. There is mild plaque within t he bilateral cavernous carotids without stenosis. No central vessel occlusion is identified. There is no intracranial aneurysm. Posterior circulation is intact. IMPRESSION: No central vessel occlusion. No intracranial aneurysm. ACT 112: Negative or not required by law. Electronically signed by: Dhruv Castro M.D. 03/01/2023 9:00 AM
[2023-03-01] MEDS ORDERED: LOSARTAN POTASSIUM 50 MG TAB PO SCH (09:45)
[2023-03-01 10:14] LABS: Appearance Urine Cloudy (Clear); Bacteria Urine Automated Negative (Negative); Bilirubin Urine Negative (Negative); Blood Urine Negative (Negative); Cast Urine Automated 0 /lpf (0-5); Color Urine Yellow; Epithelial Cell Urine Auto 0-5 /lpf (0-5); Glucose Urine UA Negative (Negative); Ketones Urine Negative (Negative); Leukocyte Esterase Urine Negative (Negative); Nitrite Urine Negative (Negative); Protein Urine Negative (Negative); RBC Urine Automated 0-4 /hpf (0-4); Specific Gravity Urine 1.014 (1.000-1.030); Urobilinogen Urine Negative (Negative); WBC Urine Automated 0 /hpf (0-5)
[2023-03-01 10:28] LABS: Troponin I High Sensitivity 5.6 pg/ml (0-20)
--- NOTE | 2023-03-01 10:54 | XRay Report ---
XR hip LT 2V w pelvis CLINICAL HISTORY: pain/weak TECHNIQUE: 2 views of the left hip and single frontal view of the pelvis were obtained. Comparison: Comparison is made to hip radiograph 07/10/2019 FINDINGS: There is no evidence of an acute fracture. Left hip arthroplasty is seen. Degenerative changes are se en in the lumbar spine and right hip joint. Vascular calcifications are noted. IMPRESSION: Degenerative changes and postsurgical changes of left hip arthroplasty without evidence of acute frac ture. ACT 112: Negative or not required by law. Electronically signed by: Misael Hutson M.D. 03/01/2023 10:53 AM
--- NOTE | 2023-03-01 11:14 | History & Physical Report ---
Date of Service March 01, 2023 Assessment & Plan (1) Left leg weakness: Plan: Pedro Goldman is an 78-year-old male with a past medical history of hypertension, small vessel cerebrovascular disease, LUTS, incisional hernia, fecal impaction, and factor V Leiden mutation heterozygous on warfarin who who presented to the emergency department for several days of left hip weakness leading to a fall to his left knee without head strike. Patient was noted to have more difficulty walking with his left leg than normal is brought into the ER for evaluation. Left leg weakness, dorsal foot paresthesia Over last 2-3 days. Patient has also had intermittent balance difficulty and transient vision change 2 days ago CThead: No acute findings, 1.3 cm left basal ganglia hypodensity age- indeterminate although likely chronic, left sphenoid sinusitis CTAhead: No central vessel occlusion, no intracranial aneurysm CTAneck: No stenosis or dissection within the bilateral common carotid/cervical internal carotid, or vertebral arteries X-ray hip/pelvis: Degenerative changes, postsurgical change to left hip, no acute fracture -Given intermittent vision change and left leg weakness/paresthesia which feels different from his prior weakness at baseline due to hip replacement will complete stroke work-up. MRI pending Patient hypertensive to 250s on admission, 171/94 after ER administration of losartan. Given pending stroke work-up will allow for permissive hypertension up to 220/110, if no acute stroke then will treat to goal systolic 180. DDx does include hypertensive etiology. Also basal ganglia age-indeterminate stroke suspicious for hypertension induced.? Labile hypertension at home No leukocytosis Hemoglobin 16.9 INR 2.4. While typically therapeutic patient had a prior DVT on low therapeutic levels and is recommended for goal range of 2.53.5. INR trend Sodium normal Potassium normal Creatinine with normal baseline, admitting creatinine 1.1 Admitting BSG 120 TSH normal UA uninfected COVID-negative Echo pending for completion of CVA eval Hyperlipidemia On pravastatin 10 mg p.o. in the evening Recommend transition to moderatehigh dose statin based on CT and concern for stroke Lipid panel pending Atorvastatin 40 mg started Hypertension As above. Labetalol for SBP greater than 220, if stroke eval is negative then may resume antihypertensives and treat to goal 180 Factor V Leiden With history of DVTs Goal INR 2.53.5 Continue warfarin Daily alcohol use Patient drinks approximately 1 bottle of wine per day. Discussed risk of alcohol withdrawal and effect of alcohol on blood pressure Patient has not been alcohol free for more than a day in a long time, is at increased risk for withdrawal symptoms. No prior history of withdrawal symptoms or seizure Will follow on DEN S at risk protocol Last drink wine on 02/28/2023 DVT prophylaxis: On warfarin Diet: Heart healthy Disposition: PCU for availability of IV antihypertensive agents CODE STATUS: Full code (2) Hypertensive urgency: (3) HTN (hypertension): (4) Small vessel disease, cerebrovascular: History of Present Illness Primary Care Provider: Dillon Calixto Pedro Goldman is an 78-year-old male with a past medical history of hypertension, small vessel cerebrovascular disease, LUTS, incisional hernia, fecal impaction, and factor V Leiden mutation heterozygous on warfarin who who presented to the emergency department for several days of left hip weakness leading to a fall to his left knee without head strike. Patient was noted to have more difficulty walking with his left leg than normal is brought into the ER for evaluation. On ER assessment is unclear how far off his baseline, is noted to have numbness to the top of the left foot but has grossly intact strength and does not show hemiplegia. Pedro is seen at the bedside with his . He goes most days a week with his . However he noticed he was having some difficulty in his LEFT leg. He has had two prior left hip surgeries. L hip arthroplasty is MRI safe, has had MRIs before per pt. R hip is with some arthritis but 'not doign too bad for 78.' Seems to have more difficulty usin th eleft leg in the last day or so. Normally cannot walk more than a quarter mile but seems a little worse today. Has had some difficulty with balance and vision change without presycnope intermittently 2 days ago which seemed to improve. on Losartan/Diltiazem/doxazosin. Typically takes losartan 10am, diltiazem 10am, doxazosin evening. Bp at home usually 130s Patient is noted to be very hypertensive on admission. Prior review of blood pressures reveals controlled generally [id number] systolic with a single measurement up to 180. He is noted to be 256/135 on admission.He is on diltiazem 360 mg daily/Tia Edmundo, losartan 100 mg in the evening at baseline INR 2.5-3.5 goal as had a past DVT with low therapeutic levels. Hx duodenal ulcer and GIB at age 19. Medical History: Reviewed Medications: Reviewed Surgical History: Reviewed. L hip repair x2. Hx retinal detachment with repair. Family history: Reviewed Allergies: Reviewed Social History: Former smoker. Etoh white 1 bottle per day. Long tiem since etoh free stretch, last drink last night. Code Status: Full Allergies Allergy/AdvReac Type Severity Reaction Status Date / Time No Known Drug Allergies Allergy Verified 02/16/23 13:24 Home Medications Medication Instructions Recorded Confirmed Type losartan 100 mg tablet 100 mg PO HS #0 tabs 01/06/18 03/01/23 History diltiazem HCl 360 mg capsule,24 360 mg PO DAILY ##0 03/05/18 03/01/23 History hr,extended release (Tiazac) doxazosin 2 mg tablet 2 mg PO DAILY ##0 03/05/18 03/01/23 History pravastatin 10 mg tablet 10 mg PO HS ##0 03/05/18 03/01/23 History amoxicillin 500 mg capsule 2,000 mg PO UD PRN dental visit 01/16/21 03/01/23 History furosemide 20 mg tablet 20 mg PO DAILY PRN edema #30 tabs 03/18/21 03/01/23 Rx phytonadione (vitamin K1) 100 mcg See Rx Instructions PO UD 02/05/22 03/01/23 History tablet celecoxib 200 mg capsule (Celebrex) 200 mg PO DAILY PRN Pain 30 days 07/29/22 03/01/23 Rx #30 caps warfarin 5 mg tablet See Rx Instructions PO UD 01/28/23 03/01/23 History allopurinol 300 mg tablet 300 mg PO DAILY 03/01/23 03/01/23 History 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) Benign prostatic hyperplasia without urinary obstruction Chest pain Chronic venous insufficiency Deep phlebitis-leg NEC (10/23/12) Edema Former smoker Homocystinuria No pertinent family history No significant social history Orthostatic hypotension (03/17/12) Periumbilical hernia Prothrombin gene mutation (10/23/12) Renal cyst, acquired Umbilical hernia Urinary retention Ventricular tachycardia Surgical History Knee joint replacement status (10/23/12) S/P laparoscopic hernia repair Social History Smoking Status: Never smoker Preferred Language: Slovak Feels Safe at Home: Yes Review of Systems Review of Systems: All systems reviewed & are unremarkable except as noted in HPI & below Physical Exam Physical Exam: General: A&Ox3. NAD. Cooperative. HEENT: Atraumatic, normocephalic. Pupils equal and reactive to light. Vision and hearing grossly intact, slightly hard of hearing Pulm: CTAB A&P. -wheezes, -rales, -rhonchi. Symmetrical chest rise. No increased work of breathing. No respiratory distress. Cardiac: RRR, -mrg. Radial pulses intact and symmetrical. Abdominal: Nontender, nondistended, soft. BS present. Extremities: 5/5 groundskeeper strength, elbow flexion/extension, hip flexion bilaterally. Ankle dorsiflexion/plantarflexion is 5/5, trace diminished ankle dorsiflexion left compared to right. Patient endorses intact sensation of soft touch in feet and ankles, but diminished sensation on the dorsal left foot and with paresthesias compared to the left. Flux-lc-lczw is intact. Finger-nose is intact Results & Data Results & Data Vital Signs (Past 12 Hours) Vital Signs Temp Pulse Resp BP Pulse Ox O2 Del Method 03/01/23 08:16 60 03/01/23 07:44 36.4 C L 78 18 256/135 H 96 Room Air PG Care Time/CCT Total # of Minutes Spent Total Time Spent with Patient: Total time spent is greater than 50% in coordination of care (as documented) at patient's floor/unit and/or counseling patient: Coding Level of Care Code 01783 INT INP/OBS CARE 3/75MIN Diagnoses Left leg weakness R29.898 Hypertensive urgency I16.0 HTN (hypertension) I10 Small vessel disease, cerebrovascular I67.9
[2023-03-01] MEDS ORDERED: LORazepam 2 MG/1 ML VIAL IV PRN (12:02)
[2023-03-01] MEDS ORDERED: LABETALOL HCL IV 5 MG/ML 20ML IV PRN (12:02)
[2023-03-01] MEDS ORDERED: CEROVITE ADV FORMULA TAB PO STA (12:02)
[2023-03-01] MEDS ORDERED: THIAMINE HCL 100 MG, FOLIC ACID 1 MG in SODIUM CHLORIDE 0.9% 1000ML 1,000 ML IV SCH (12:15)
[2023-03-01] MEDS ORDERED: THIAMINE HCL 500 MG in SODIUM CHLORIDE 0.9% 50 ML IV STA (12:16)
--- NOTE | 2023-03-01 12:37 | Magnetic Resonance Report ---
MRI OF THE BRAIN WITHOUT IV CONTRAST CLINICAL HISTORY: Left leg weakness/numbness. COMPARISON STUDY: CT of the brain dated 03/01/2023 TECHNIQUE: MRI of the brain was performed utilizing various T1 and T2-weighted sequences in the axial , sagittal, and coronal planes. IV contrast was not administered for this examination. FINDINGS: Brain parenchyma: There is age-related involutional change noting moderate subcortical and periventri cular microangiopathic disease. There is no hemorrhage or mass effect. There is no restricted diffusi on to suggest acute ischemia. Saenz-white matter differentiation is preserved. No extra-axial fluid co llection is seen. The cerebellar tonsils are normal in configuration. Ventricles, sulci, and cisterns: Prominent secondary to involutional change. Pituitary and sella: Unremarkable. Intracranial vasculature: Normal flow voids are maintained at the skull base. Orbits: The bony orbits are grossly intact. Orbital contents are normal as visualized noting bilatera l ocular lens implants. There has been banding of the left ocular globe. Sinuses and mastoids: There is moderate to advanced mucosal thickening within the left sphenoid sinus . Trace mucosal thickening is present in the left maxillary antrum. The mastoid air cells are clear. Calvarium: Unremarkable. Cervical cord: Partially visualized cervical spinal cord is normal in morphology and signal intensity . IMPRESSION: No acute intracranial abnormality. ACT 112: Negative or not required by law. Electronically signed by: Fred Vargas M.D. 03/01/2023 12:35 PM
[2023-03-01] MEDS ORDERED: FUROSEMIDE 20 MG TAB PO PRN (16:15)
[2023-03-01] MEDS ORDERED: PHARMACIST DISCHARGE MED REC CONSULT PRN (16:15)
[2023-03-01] MEDS ORDERED: WARFARIN SOD 7.5 MG TAB PO SCH ×2 (16:45)
[2023-03-01] MEDS: CYANOCOBALAMIN 1000 MCG/ML VIAL IM SCH (17:28)
[2023-03-01] MEDS ORDERED: LORazepam 2 MG/1 ML VIAL IV STA (17:48)
[2023-03-01] MEDS ORDERED: DOXAZosin MESYLATE TAB 2 MG TAB PO SCH (21:30)
[2023-03-02 06:14] LABS: Basophils # (auto) 0.07 K/uL (0-0.2); Basophils % (auto) 1.1 %; Eosinophils # (auto) 0.17 K/uL (0-0.50); Eosinophils % (auto) 2.8 %; Hematocrit (blood only) 43.3 % (42.0-52.0); Immature Granulocytes # (auto) 0.02 K/uL (0.01-0.20); Immature Granulocytes % (auto) 0.3 %; Lymphocytes # (auto) 1.61 K/uL (1.2-3.4); Lymphocytes % (auto) 26.3 %; Mean Corpuscular Hemoglobin 31.6 pg (25.0-34.0); Mean Corpuscular Hgb Conc 34.6 g/dL (32.0-36.0); Mean Corpuscular Volume 91.2 fL (80.0-100.0); Mean Platelet Volume 9.7 fL (9.4-12.4); Monocytes # (auto) 0.66 K/uL (0.11-0.59); Monocytes % (auto) 10.8 %; Neutrophils % (auto) 58.7 %; Platelet Count 262 K/uL (130-400); RDW Coefficient of Variation 14.1 % (11.5-14.5); RDW Standard Deviation 47.4 fL (36.4-46.3); Red Blood Count 4.75 M/uL (4.70-6.10); White Blood Count 6.13 K/ul (4.8-10.8)
[2023-03-02 06:30] LABS: BUN Creatinine Ratio 10.8 (10-20); Calcium 8.7 mg/dl (8.6-10.3); Chol HDL Ratio 2.7 (0-5); Creatinine Clr Calc Pharmacy 63.4 ml/min; Est GFR (African American) 80.1 ml/min; Est GFR (Non-African American) 69.1 ml/min; Potassium 3.5 mmol/L (3.5-5.1)
[2023-03-02 06:39] LABS: INR 2.2 (0.9-1.1); Prothrombin Time 23.2 Seconds (9.0-12.0)
--- NOTE | 2023-03-02 08:47 | Electrocardiogram Report ---
Test Reason : Blood Pressure : / mmHG Vent. Rate : 064 BPM Atrial Rate : 064 BPM P-R Int : 140 ms QRS Dur : 084 ms QT Int : 420 ms P-R-T Axes : 010 -13 034 degrees QTc Int : 433 ms Normal sinus rhythm with sinus arrhythmia Low voltage QRS Borderline ECG When compared with ECG of 25-SEP-2022 06:31, No significant change was found Confirmed by Rodriguez Jerome ([id number]) on 03/02/2023 8:47:10 AM Referred By: Confirmed By:Rodriguez Jerome
[2023-03-02] MEDS: dilTIAZem HCL 180 MG CAPCR PO SCH (08:50)
[2023-03-02] MEDS: allopurinoL 300 MG TAB PO SCH (08:51)
[2023-03-02] MEDS: LOSARTAN POTASSIUM 50 MG TAB PO SCH (08:51)
[2023-03-02] MEDS: FOLIC ACID 1 MG TAB PO SCH (08:51)
[2023-03-02] MEDS: THIAMINE HCL 100 MG TAB PO SCH (08:52)
[2023-03-02] MEDS: ATORVASTATIN 40 MG TAB PO SCH (08:52)
[2023-03-02] MEDS: CYANOCOBALAMIN 1000 MCG/ML VIAL IM SCH (08:53)
[2023-03-02 08:57] LABS: Estimated Average Glucose 111 mg/dl; Hemoglobin A1C 5.5 % (4.5-5.6)
--- NOTE | 2023-03-02 09:30 | XCELERA ---
[id number]
--- NOTE | 2023-03-02 12:21 | Hospitalist Progress Note ---
Date of Service March 02, 2023 Assessment & Plan (1) Left leg weakness: Plan: Weakness appears to have resolved although he still has some paresthesia in the distal left lower extremity laterally. Brain MRI scan negative for CVA. Cardiac echo reveals moderate LVH due to his blood pressure but no evidence of intra-atrial shunt. H (2) Hypertensive urgency: Plan: Blood pressure improved from admission. Continue diltiazem and losartan. Doxazosin has been increased from 2 mg to 4 mg at bedtime. (3) HTN (hypertension): Plan: Continue diltiazem, losartan, doxazosin (4) Small vessel disease, cerebrovascular: Plan: Continue statin therapy (5) Factor V Leiden: Plan: Continue Coumadin therapy. INR 2.2 today, March 02 (6) Alcohol abuse: Plan: Continue multivitamin and thiamine. Outpatient counseling recommended (7) Hyperlipidemia: Plan: Stable. Continue statin therapy Plan Hopefully home later today, March 02. He has requested to see his pulverizer however Admission and Anticipated Discharge Date Admission Date: March 01, 2023 Subjective Alert and oriented. Fortunately, the brain MRI scan is negative for acute CVA. INR is 2.2 and therapeutic. Blood pressure continues to run high and doxazosin has been increased from 2 mg to 4 mg daily. He remains on diltiazem and losartan. He has requested to see his pulverizer prior to discharge. Cardiac echo reveals left ventricular hypertrophy with no evidence of shunt. Review of Systems Review of Systems: Constitutional-no fever or chills ENT-no blurred vision, no double vision, no epistaxis, no sore throat Respiratory-no cough, no wheezing, no shortness of breath Cardiac-no palpitations, no chest pain, no syncope GI-no nausea, vomiting, diarrhea, melena, hematochezia -no urinary retention, no urinary incontinence, no dysuria, no hematuria Musculoskeletal-no joint pain, no muscle tenderness Skin-no bruising, no rashes, no pruritus Neuro-no isolated weakness. He is vague but states there is some paresthesia in the left lower extremity distally Psych-no depression, no anxiety Physical Exam Physical Exam: General-alert and oriented x3, no fevers, no chills HEENT-head atraumatic and normocephalic, pupils equal and reactive to light, extraocular muscles intact Neck-no lymphadenopathy or thyromegaly, trachea midline Chest-clear to auscultation percussion. No rales wheezing or rhonchi Cardiac-regular rate and rhythm, normal S1 and S2 Abdomen-normal bowel sounds, nontender, no hepatosplenomegaly Extremities-no cyanosis, clubbing, or edema Neuro-cranial nerves II through XII intact, motor and sensory function within normal limits, strength symmetrical , no focal deficits Psych-normal affect, normal mood Results & Data Results & Data Vital Signs (Past 12 Hours) Vital Signs Temp Pulse Resp BP Pulse Ox O2 Del Method 03/02/23 11:35 36.8 C 70 18 94 Room Air 03/02/23 08:00 36.8 C 69 18 146/114 H 96 Room Air 03/02/23 02:51 36.9 C 60 18 166/90 H 95 Room Air Laboratory Results 03/02/23 05:35 03/02/23 05:35 PG Care Time/CCT Total # of Minutes Spent Total Time Spent with Patient: Total time spent is greater than 50% in coordination of care (as documented) at patient's floor/unit and/or counseling patient: Coding Level of Care Code 23986 SUB INP/OBS CARE 3/50MIN Diagnoses Left leg weakness R29.898 Hypertensive urgency I16.0 HTN (hypertension) I10 Small vessel disease, cerebrovascular I67.9 Factor V Leiden D68.51 Alcohol abuse F10.10 Hyperlipidemia E78.5
--- NOTE | 2023-03-02 13:48 | Cardiology Consultation ---
Date of Consultation March 02, 2023 Assessment & Plan (1) Uncontrolled hypertension: Given normotensive BPs during recent office visit and on home monitoring, suspect that current uncontrolled/labile BP is secondary to some degree of alcohol withdrawal. Primary treatment is benzodiazepines for withdrawal, would recommend addition of clonidine 0.1 mg every 6 hours as needed for marked hypertension (SBP greater than 180 mmHg, DBP greater than 100 mmHg) as well as continuation of his usual vasoactive regimen (losartan/diltiazem/doxazosin). Would not be inclined to continue order for IV labetalol given tendency to bradycardia. Further recommendations based on BP response to addition of benzodiazepine/c lonidine overnight. (2) Alcohol abuse: Patient acknowledges immoderate alcohol intake and is aware of risks inherent in the withdrawal process. (3) Factor V Leiden: INR therapeutic, continue warfarin long-term for factor V Leiden mutation. Plan Follow-up by Dr. Mari as inpatient and then close follow-up by him as outpatient upon discharge. History of Present Illness Reason for Consultation: Uncontrolled hypertension Requesting Physician: Aries Millan MD Attending Physician: Aries Millan MD History of Present Illness 78-year-old man with vascular risk factors (hypertension, dyslipidemia, age, gender) but no documented CAD, factor V Leiden mutation (chronic warfarin therapy) and significant alcohol intake (1 bottle of wine daily) was admitted 03/01/23 with left leg symptoms, ruled out for CVA, but noted to have labile/uncontrolled hypertension. He is followed by Dr. Mari as an outpatient and was seen just a couple weeks ago, at that time he was doing well with no cardiopulmonary symptoms and home BPs in the 120/70 mmHg range. His chronic vasoactive regimen includes losartan 100 mg daily, diltiazem 360 mg daily, and doxazosin 2 mg daily as well as furosemide 20 mg as needed for edema. Blood pressure on admission was 256/135 mmHg, lower since that time but still suboptimally controlled (195/115 mmHg at noon today). Despite elevated BP, he denies any chest pain, dyspnea, palpitations, or other complaints. There was a suspicion for early alcohol withdrawal and the patient has been treated with lorazepam and his usual antihypertensive regimen, labetalol IV was prescribed but does not appear to have been administered as yet. At the time of my evaluation, the patient was comfortable and had no somatic complaints. Allergies Allergy/AdvReac Type Severity Reaction Status Date / Time No Known Drug Allergies Allergy Verified 02/16/23 13:24 Home Medications Medication Instructions Recorded Confirmed Type losartan 100 mg tablet 100 mg PO HS #0 tabs 01/06/18 03/01/23 History diltiazem HCl 360 mg capsule,24 360 mg PO DAILY ##0 03/05/18 03/01/23 History hr,extended release (Tiazac) doxazosin 2 mg tablet 2 mg PO DAILY ##0 03/05/18 03/01/23 History pravastatin 10 mg tablet 10 mg PO HS ##0 03/05/18 03/01/23 History amoxicillin 500 mg capsule 2,000 mg PO UD PRN dental visit 01/16/21 03/01/23 History furosemide 20 mg tablet 20 mg PO DAILY PRN edema #30 tabs 03/18/21 03/01/23 Rx phytonadione (vitamin K1) 100 mcg See Rx Instructions PO UD 02/05/22 03/01/23 History tablet celecoxib 200 mg capsule (Celebrex) 200 mg PO DAILY PRN Pain 30 days 07/29/22 03/01/23 Rx #30 caps warfarin 5 mg tablet See Rx Instructions PO UD 01/28/23 03/01/23 History allopurinol 300 mg tablet 300 mg PO DAILY 03/01/23 03/01/23 History Patient History Medical History 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) Benign prostatic hyperplasia without urinary obstruction Chest pain Chronic venous insufficiency Deep phlebitis-leg NEC (10/23/12) Edema Former smoker Homocystinuria No pertinent family history No significant social history Orthostatic hypotension (03/17/12) Periumbilical hernia Prothrombin gene mutation (10/23/12) Renal cyst, acquired Umbilical hernia Urinary retention Ventricular tachycardia Surgical History Knee joint replacement status (10/23/12) S/P laparoscopic hernia repair Social History Smoking Status: Never smoker Hx Alcohol Use: Yes Alcohol type: wine Hx Substance Use: Yes Last Used Substance: Days (ago) Last Used Substance Other:: within last few days, would not provide specifics Substance Use Type Other:: medical marijuana per pt Preferred Language: Portuguese Communication Ability: Effective Rn Cardiac Required: No Beliefs That Will Affect Care: None Current Living Situation: Spouse Other Information That Helps Us Care for You: No Feels Safe at Home: Yes Safety Concerns: Feels Safe At This Time Assistive Devices: None Physical Exam Physical Exam: No distress. Afebrile. BP labile and hypertensive, as noted. Pulse varying between 50 bpm and 70 bpm. Respirations 18 and unlabored. Skin: no ecchymoses or generalized lesions. HEENT: unremarkable. Neck: JVP at the clavicle at 90 degrees, no carotid bruits. Lungs: clear. Cardiac: regular rhythm, normal S1-2, no murmur. Abdomen: benign. Extremities: Trace edema right lower extremity, pulses intact. Neurologic: normal affect and conversation, no tremulousness, nonfocal. Results & Data Vital Signs (Past 12 Hours) Vital Signs Temp Pulse Resp BP Pulse Ox O2 Del Method 03/02/23 13:28 170/99 H 03/02/23 12:00 195/115 H 03/02/23 11:35 98.2 F 70 18 94 Room Air 03/02/23 08:00 98.2 F 69 18 146/114 H 96 Room Air 03/02/23 02:51 98.4 F 60 18 166/90 H 95 Room Air Laboratory Results INR 2.2. Normal electrolytes, BUN 11, creatinine 1.02. Diagnostic Findings ECG showed sinus rhythm with low voltage QRS, otherwise unremarkable. Compared with 09/25/2022 ECG, no significant change. Chest x-ray unremarkable. Telemetry showed sinus rhythm with occasional PACs, rate 50-60 bpm overnight. Echocardiogram showed EF 65 to 70% with moderate LVH and grade 1 diastolic dysfunction, no significant valvular disease, RVSP normal. No evidence of interatrial shunt with bubble contrast. Compared with 2017 study, LVH and diastolic dysfunction are new. PG Care Time/CCT Total # of Minutes Spent Total Time Spent with Patient: Total time spent is greater than 50% in coordination of care (as documented) at patient's floor/unit and/or counseling patient: Coding Level of Care Code 59260 IN/OBS CONSULT LVL 4,60M Diagnoses Uncontrolled hypertension I10 Alcohol abuse F10.10 Factor V Leiden D68.51
[2023-03-02] MEDS ORDERED: cloNIDine HCL 0.1 MG TAB PO PRN (14:16)
[2023-03-02] MEDS ORDERED: WARFARIN SOD 10 MG TAB PO SCH (16:00)
[2023-03-02] MEDS ORDERED: DOXAZosin MESYLATE TAB 2 MG TAB PO SCH ×2 (21:00)
[2023-03-03 07:24] LABS: Basophils # (auto) 0.04 K/uL (0-0.2); Basophils % (auto) 0.6 %; Eosinophils # (auto) 0.17 K/uL (0-0.50); Eosinophils % (auto) 2.4 %; Hematocrit (blood only) 47.2 % (42.0-52.0); Hemoglobin 16.2 g/dl (14.0-18.0); Immature Granulocytes # (auto) 0.03 K/uL (0.01-0.20); Immature Granulocytes % (auto) 0.4 %; Lymphocytes # (auto) 1.68 K/uL (1.2-3.4); Lymphocytes % (auto) 23.5 %; Mean Corpuscular Hgb Conc 34.3 g/dL (32.0-36.0); Mean Corpuscular Volume 90.2 fL (80.0-100.0); Mean Platelet Volume 9.8 fL (9.4-12.4); Monocytes % (auto) 8.4 %; Neutrophils # (auto) 4.62 K/uL (1.40-6.50); Neutrophils % (auto) 64.7 %; Platelet Count 283 K/uL (130-400); RDW Coefficient of Variation 14.1 % (11.5-14.5); RDW Standard Deviation 46.9 fL (36.4-46.3); Red Blood Count 5.23 M/uL (4.70-6.10); White Blood Count 7.14 K/ul (4.8-10.8)
[2023-03-03 07:41] LABS: Calcium 9.1 mg/dl (8.6-10.3); Creatinine Clr Calc Pharmacy 54.8 ml/min; Est GFR (African American) 67.1 ml/min; Est GFR (Non-African American) 57.9 ml/min; Potassium 4.2 mmol/L (3.5-5.1)
[2023-03-03] MEDS ORDERED: SPIRONOLACTONE 12.5 MG TAB PO ONE (07:55)
[2023-03-03] MEDS: FOLIC ACID 1 MG TAB PO SCH (09:14)
[2023-03-03] MEDS: ATORVASTATIN 40 MG TAB PO SCH (09:14)
[2023-03-03] MEDS: allopurinoL 300 MG TAB PO SCH (09:14)
[2023-03-03] MEDS: CYANOCOBALAMIN 1000 MCG/ML VIAL IM SCH (09:14)
[2023-03-03] MEDS: dilTIAZem HCL 180 MG CAPCR PO SCH (09:14)
[2023-03-03] MEDS: LOSARTAN POTASSIUM 50 MG TAB PO SCH (09:15)
[2023-03-03] MEDS: THIAMINE HCL 100 MG TAB PO SCH (09:15)
[2023-03-03] MEDS ORDERED: LORazepam 0.5 MG TAB PO STA (12:35)
[2023-03-03 13:02] LABS: INR 2.3 (0.9-1.1); Prothrombin Time 23.7 Seconds (9.0-12.0)
--- NOTE | 2023-03-03 14:25 | Discharge Summary ---
Date of Service March 03, 2023 Admission HPI Per Admitting Provider Pedro Goldman is an 78-year-old male with a past medical history of hypertension, small vessel cerebrovascular disease, LUTS, incisional hernia, fecal impaction, and factor V Leiden mutation heterozygous on warfarin who who presented to the emergency department for several days of left hip weakness leading to a fall to his left knee without head strike. Patient was noted to have more difficulty walking with his left leg than normal is brought into the ER for evaluation. On ER assessment is unclear how far off his baseline, is noted to have numbness to the top of the left foot but has grossly intact strength and does not show hemiplegia. Pedro is seen at the bedside with his . He goes most days a week with his . However he noticed he was having some difficulty in his LEFT leg. He has had two prior left hip surgeries. L hip arthroplasty is MRI safe, has had MRIs before per pt. R hip is with some arthritis but 'not doign too bad for 78.' Seems to have more difficulty usin th eleft leg in the last day or so. Normally cannot walk more than a quarter mile but seems a little worse today. Has had some difficulty with balance and vision change without presycnope intermittently 2 days ago which seemed to improve. on Losartan/Diltiazem/doxazosin. Typically takes losartan 10am, diltiazem 10am, doxazosin evening. Bp at home usually 130s Patient is noted to be very hypertensive on admission. Prior review of blood pressures reveals controlled generally [id number] systolic with a single measurement up to 180. He is noted to be 256/135 on admission.He is on diltiazem 360 mg daily/Tia Edmundo, losartan 100 mg in the evening at baseline INR 2.5-3.5 goal as had a past DVT with low therapeutic levels. Hx duodenal ulcer and GIB at age 19. Medical History: Reviewed Medications: Reviewed Surgical History: Reviewed. L hip repair x2. Hx retinal detachment with repair. Family history: Reviewed Allergies: Reviewed Social History: Former smoker. Etoh white 1 bottle per day. Long tiem since etoh free stretch, last drink last night. Code Status: Full Principal Diagnosis Hypertensive urgency Leg weakness perhaps from left hip previous surgery Discussion of alcohol use Discharge Exam Awake alert appropriate no focal neurological deficits. Patient has a use related left hip issue which may be giving way. Recommending orthopedic follow-up as an outpatient Heart exam is regular without murmurs lungs are clear Discharge Data Allergies Allergy/AdvReac Type Severity Reaction Status Date / Time No Known Drug Allergies Allergy Verified 02/16/23 13:24 Consultations 03/01/23 10:26 ED Decision to Admit Stat 03/02/23 10:52 Consult Cardiology Routine Ordered Studies 03/01/23 08:26 CT angio head w con Stat CT angio neck with con Stat CT head/brain wo con Stat 03/01/23 11:12 MR brain wo con Stat Hospital Course (1) Left leg weakness: Weakness appears to have resolved although he still has some paresthesia in the distal left lower extremity laterally. Brain MRI scan negative for CVA. Cardiac echo reveals moderate LVH due to his blood pressure but no evidence of intra-atrial shunt. Given previous left hip surgery x2 recommend orthopedic follow-up to evaluate for mechanical failure and or prescribed physical therapy to strengthen musculature that area (2) Hypertensive urgency: Blood pressure improved from admission. Continue diltiazem and losartan. Doxazosin has been increased from 2 mg to 4 mg at bedtime. Patient's blood pressure does have a component of anxiety stress or worry associated with it. He did respond favorably to 1 dose of lorazepam. We discussed the ways to reduce stress as an outpatient patient will take that to heart and find application which works best for him in his personal situation (3) HTN (hypertension): Continue diltiazem, losartan, doxazosin (4) Small vessel disease, cerebrovascular: Continue statin therapy (5) Factor V Leiden: Continue Coumadin therapy. INR 2.3 March 03, 2023 (6) Alcohol abuse: Continue multivitamin counseled about cessation patient says he wishes to stop completely he exhibited no signs of alcohol withdrawal of inpatient with exception of hypertension which likely has multiple other causality (7) Hyperlipidemia: Stable. Continue statin therapy Plan Follow-up with Dr. Mari Total Time Total Time Spent Total Time Spent (In Minutes): It required greater than 30 minutes to prepare this patient for discharge Discharge Plan Discharge Items Patient Disposition: Home - Self-Care Reason For Visit: CVA EVAL, L LEG WEAKNESS/PARASTHESIA Discharge Diagnosis: hypertensive urgency Activity: Resume your previous activity Non-emergency contact: Primary Care Provider and Research And Development Tester Call non-emergency contact if: your symptoms worsen Follow-up/Referrals: Dillon Calixto [Primary Care Provider] - 03/10/23 10:25 am (Follow up scheduled on 03/10/23 @ 10:25 with Scarlet Powers) Diet: Low Sodium (2gm) Addtl Attending Provider Instructions: consider reducing your salt and alcohol intake, consider taking your blood pressure at different times and recording to show Dr Mari with regard to your alcohol intake, try to have days that are alcohol free, and try to keep your servings to one or two a week or start all together please follow up with primary care and consider a referral for you hip to be evaluated, this could be a doctor appointment and maybe a Physical therapy referral also we do recommend to increase your doxazosin to 4 mg and take this in the evening also consider a multiple vitamin that contains thiamine Pending Studies at Discharge: No Stand-Alone Forms: My [facility] [employer], Smoking Cessation Medications and DC Order Prescriptions: Continued amoxicillin 500 mg capsule 2,000 mg PO UD PRN (Reason: dental visit) warfarin 5 mg tablet See Rx Instructions PO UD Rx Instructions: 7.5mg q Mo/Fr, 10mg x 5 days per [facility] orally use as directed phytonadione (vitamin K1) 100 mcg tablet See Rx Instructions PO UD Rx Instructions: 100mcg po daily per [facility] PO use as directed; losartan 100 mg Tablet 100 mg PO HS Qty: 0 diltiazem HCl [Tiazac] 360 mg Capsule,Extended Release 24 Hr 360 mg PO DAILY Qty: 0 pravastatin 10 mg Tablet 10 mg PO HS Qty: 0 celecoxib [Celebrex] 200 mg capsule 200 mg PO DAILY PRN (Reason: Pain) 30 Days Qty: 30 5RF furosemide 20 mg tablet 20 mg PO DAILY PRN (Reason: edema) Qty: 30 0RF allopurinol 300 mg Tablet 300 mg PO DAILY Changed doxazosin 2 mg Tablet 4 mg PO QPM Qty: 60 0RF Discharge Orders: Discharge Order (Routine); Ordered 03/03/23 Ordered By: Gal Lui/Other Patient Handouts: Low-Salt Choices Admission Data Admit Date/Time: 03/01/23 13:21 Attending Provider: Gal Nguyen Admit Provider: Victor Manuel Aponte Primary Care Provider: Dillon Calixto Other Providers: Keshia Sheets ; Rodriguez Moses ; Victor Manuel Aponte ; Joni Tyson ; Rustam Barnes ; Jarvis Mari ; Aramis Rodriguez ; Rodriguez Jerome ; Karan Charlton Jr ; Matthew Chu ; Marielos Snell ; Camila Medina ; Krystian Mckinney ; Umer Mesa ; Aries Goodrich ; Anitha Veras ; Annabelle Diaz ; Michael Aguila ; Red Olivares ; Aramis Monge V. Other Interventions: Discharge Summary Assessment (RN) Last Done: 03/03/23 13:59 Coding Level of Care Code 07470 INP/OBS DISCH >30 MIN Diagnoses Left leg weakness R29.898 Hypertensive urgency I16.0 HTN (hypertension) I10 Small vessel disease, cerebrovascular I67.9 Factor V Leiden D68.51 Alcohol abuse F10.10 Hyperlipidemia E78.5
== END 2023-03-03 14:53 | disposition home or self-care (01) ==
LOC: ED 07:34 → 2E 07:34 → SUATTDRO 13:21 → 2E 15:37

== ENCOUNTER 2023-08-28 15:00 | Inpatient (IN) ==
[2023-08-28 15:38] LABS: Basophils # (auto) 0.11 K/uL (0.00-0.20); Basophils % (auto) 1.3 %; Eosinophils # (auto) 0.25 K/uL (0.00-0.50); Eosinophils % (auto) 2.9 %; Hematocrit (blood only) 36.5 % (42.0-52.0); Hemoglobin 11.9 g/dl (14.0-18.0); Immature Granulocytes # (auto) 0.03 K/uL (0.01-0.20); Immature Granulocytes % (auto) 0.4 %; Lymphocytes # (auto) 1.67 K/uL (1.20-3.40); Lymphocytes % (auto) 19.6 %; Mean Corpuscular Hemoglobin 29.4 pg (25.0-34.0); Mean Corpuscular Hgb Conc 32.6 g/dL (32.0-36.0); Mean Corpuscular Volume 90.1 fL (80.0-100.0); Mean Platelet Volume 9.3 fL (9.4-12.4); Monocytes # (auto) 0.72 K/uL (0.11-0.59); Monocytes % (auto) 8.4 %; Neutrophils # (auto) 5.75 K/uL (1.40-6.50); Neutrophils % (auto) 67.4 %; Platelet Count 412 K/uL (130-400); RDW Coefficient of Variation 13.4 % (11.5-14.5); RDW Standard Deviation 44.5 fL (36.4-46.3); Red Blood Count 4.05 M/uL (4.70-6.10); White Blood Count 8.53 K/ul (4.8-10.8)
[2023-08-28 15:54] LABS: Alanine Aminotransferase 10 U/L (7-52); Albumin Globulin Ratio 0.8 (0.9-2); Albumin Level 3.4 gm/dl (3.4-5.0); Alkaline Phosphatase 116 U/L (34-104); Anion Gap 7 (3-11); Aspartate Aminotransferase 5 U/L (13-39); BUN Creatinine Ratio 14.5 (10-20); Bilirubin,Total 0.5 mg/dl (0.2-1.0); Blood Urea Nitrogen 23 mg/dl (6-23); Calcium 8.8 mg/dl (8.6-10.3); Carbon Dioxide 25 mmol/L (21-32); Chloride 102 mmol/L (98-107); Est GFR (African American) 46.8 ml/min; Est GFR (Non-African American) 40.4 ml/min; Globulin 4.5 gm/dl (2.5-4.0); Glucose 108 mg/dl (70-99(Fasting)); Potassium 4.6 mmol/L (3.5-5.1); Sodium 134 mmol/L (136-145); Total Protein 7.9 gm/dl (6.0-8.3)
[2023-08-28 16:05] LABS: INR 1.1 (0.9-1.1); Partial Thromboplastin Time 28 Seconds (21-31); Prothrombin Time 12.3 Seconds (9.0-12.0)
[2023-08-28] MEDS ORDERED: SODIUM CHLORIDE 0.9% 1,000 ML IV ONE ×2 (16:33→18:16)
--- NOTE | 2023-08-28 16:33 | Emergency Department Note ---
Impression & Plan Pneumonia ED Provider Note NAME: KIRILL HIGH AGE: 78 SEX: M : 1945 ARRIVES VIA: Walk-In INFORMANT: Patient, ED PROVIDER(S): Mckayla Cabrera MD CHIEF COMPLAINT: Hypotension HPI: This is an 78-year-old male presenting for hypotension. Patient was previously transferred to head bleed about 1 to 2 months ago, had procedure to drain some of blood. Since then he been recovering very well without any acute abnormalities. He most recently had Jenkins that required removal however patient had replacement of this yesterday. He was given antibiotics by Dr. Vee, his urologist. Otherwise he was noted to have hypotension into the 70s systolic. This occurred for the past 1 day. Today he continues to the present to the emergency department. Patient has no fever, chills, nausea, vomiting. ROS: See above HPI for pertinent positives & negatives. A total of 10 systems reviewed and were otherwise negative. PAST MEDICAL HISTORY: See Below PAST SURGICAL HISTORY: See Below FAMILY HISTORY: See Below SOCIAL HISTORY: See Below HOME MEDICATIONS: See Below ALLERGIES: See Below VITALS: See Below PHYSICAL EXAMINATION: General: resting comfortably in no acute distress Head: Normocephalic and atraumatic Eyes: Normal inspection, extraocular muscles intact Ear, nose, throat: Normal external exam Neck: Normal range of motion Respiratory: lungs clear to auscultation bilaterally Cardiovascular: Regular rate/rhythm, no murmur GI: soft, no abdominal tenderness Extremities: nontender, moves all extremities Neuro: The patient awake and alert, appropriately conversive, no focal deficits, symmetric faces Skin: Warm, dry, and intact MEDICAL DECISION MAKING: This is an 78-year-old male presenting for hypotension. Will suspect sepsis and opiate otherwise. Patient initially hypotensive to the 80s systolic here, 70s at home. He did have improvement to the 100 prior to resuscitation. No fever here, no tachycardia. Well-appearing generally severed slightly tender abdomen. Will do CT of the ab/pelvis. Will do chest x-ray for sepsis protocol. Get blood cultures and basic labs. -No significant cytosis here, slight anemia, otherwise no significant electrolyte disturbance, -slight creatinine elevation 1.59, DAVID -Urinalysis reveals leuk esterase, WBC without bacteria, slight contamination -Chest x-ray as independently interpreted by me reveals possible left opacity concerning for pneumonia -Based on these findings, will admit for suspected sepsis, given fluid resuscitation, broad-spectrum antibiotics -Admitted to Dr. Stanton Differential diagnosis: Pneumonia, sepsis, UTI ER treatment provided: See below Diagnostics interpreted by me: ECG: ECG independently interpreted by me with normal sinus rhythm, rate of 66, normal axis, normal IN, normal QRS, normal QTc, no ST segment elevations consistent with STEMI criteria Cardiac Monitoring: An order was placed for continuous cardiac monitoring. The monitor shows a rate of 60 with sinus rhythm. Laboratory studies: As stated above and show below. Imaging studies: See below. Critical Care Note: I have personally spent 30 minutes of critical care time in the direct management of this patient. This includes bedside care, interpretation of diagnostic studies, and testing, discussion with consultants, patient, and family members, and other required patient management activities. This 30 minutes is in excess of all separately billable procedures. 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) Benign prostatic hyperplasia without urinary obstruction Chest pain Chronic venous insufficiency Deep phlebitis-leg NEC (10/23/12) Edema Former smoker Homocystinuria Periumbilical hernia Prothrombin gene mutation (10/23/12) Renal cyst, acquired Urinary retention Umbilical hernia Ventricular tachycardia Orthostatic hypotension (03/17/12) Surgical History Knee joint replacement status (10/23/12) S/P laparoscopic hernia repair Social History Smoking Status: Never smoker Hx Alcohol Use: Yes Alcohol type: wine Hx Substance Use: Yes (medical marijuana/CBD) Last Used Substance: Days (ago) Last Used Substance Other:: within last few days, would not provide specifics Substance Use Type Other:: medical marijuana per pt Preferred Language: Azeri Communication Ability: Effective Size Stamper Required: No Beliefs That Will Affect Care: Presybeterian Presybeterian Beliefs: baptism Current Living Situation: Spouse Current Living Situation Comment: [place] in [place] Feels Safe at Home: Yes Assistive Devices: Walker Allergies Allergies Allergy/AdvReac Type Severity Reaction Status Date / Time No Known Drug Allergies Allergy 0 Verified 08/26/23 10:30 Home Meds Home Medications Medication Instructions Recorded Confirmed allopurinol 300 mg tablet 300 mg PO QAM 03/01/23 08/28/23 carvedilol 12.5 mg tablet 12.5 mg PO BID 08/26/23 08/28/23 cyclobenzaprine 5 mg tablet 5 mg PO TID PRN Other 08/26/23 08/28/23 levetiracetam 750 mg tablet 750 mg PO AMHS 08/26/23 08/28/23 losartan 100 mg tablet 50 mg PO DAILY #0 tabs 08/27/23 08/28/23 apixaban 2.5 mg tablet (Eliquis) 2.5 mg PO BID 08/28/23 08/28/23 Previous Rx's Medication Instructions Recorded doxazosin 2 mg tablet 4 mg (2 x 2 mg) PO QPM #60 tabs 04/15/23 nystatin 100,000 unit/gram topical 1 applic topical BID #15 grams 08/26/23 cream triamcinolone acetonide 0.1 % 1 applic topical BID #15 grams 08/26/23 topical cream amlodipine 5 mg tablet (Norvasc) 5 mg PO QAM #30 tabs 08/29/23 amoxicillin 875 mg-potassium 1 tab PO BID 3 days #6 tabs 08/29/23 clavulanate 125 mg tablet Results & Data (ED) Vital Signs Vital Signs - 24 hr 08/28/23 15:08 08/28/23 16:00 08/28/23 17:13 Temperature 36.6 C Temperature Source Temporal Artery Scan Pulse Rate 69 60 Pulse Rate [Apical] 61 Pulse Rate from SpO2 Sensor Pulse Rhythm [Apical] Regular Pulse Strength [Apical] Normal Respiratory Rate 20 19 Respiratory Effort / Characteristics Non-Labored Non-Labored Spontaneous Respiratory Depth Normal Normal Respiratory Pattern Regular Blood Pressure 81/54 L Blood Pressure [Left Arm] 100/70 Blood Pressure Mean 63 Blood Pressure Mean [Left Arm] 80 Pulse Oximetry 96 96 Oxygen Delivery Method Room Air Room Air Sepsis Recent Fever Within 48 Hours No Sepsis New/Unexplained Change in Mental Status Yes Sepsis Action Taken by Nursing No Action Required 08/28/23 17:13 08/28/23 17:17 08/28/23 17:17 Temperature Temperature Source Pulse Rate 58 L 59 L Pulse Rate [Apical] Pulse Rate from SpO2 Sensor 59 L Pulse Rhythm [Apical] Pulse Strength [Apical] Respiratory Rate 22 22 Respiratory Effort / Characteristics Respiratory Depth Respiratory Pattern Blood Pressure 138/63 Blood Pressure [Left Arm] Blood Pressure Mean 95 Blood Pressure Mean [Left Arm] Pulse Oximetry 93 Oxygen Delivery Method Room Air Sepsis Recent Fever Within 48 Hours Sepsis New/Unexplained Change in Mental Status Sepsis Action Taken by Nursing 08/28/23 17:30 08/28/23 17:30 08/28/23 18:00 Temperature Temperature Source Pulse Rate 59 L 59 L Pulse Rate [Apical] Pulse Rate from SpO2 Sensor 60 59 L Pulse Rhythm [Apical] Pulse Strength [Apical] Respiratory Rate 18 20 Respiratory Effort / Characteristics Respiratory Depth Respiratory Pattern Blood Pressure 127/78 Blood Pressure [Left Arm] Blood Pressure Mean 90 Blood Pressure Mean [Left Arm] Pulse Oximetry 92 92 Oxygen Delivery Method Room Air Room Air Room Air Sepsis Recent Fever Within 48 Hours Sepsis New/Unexplained Change in Mental Status Sepsis Action Taken by Nursing 08/28/23 18:00 08/28/23 18:04 08/28/23 18:04 Temperature Temperature Source Pulse Rate 59 L Pulse Rate [Apical] Pulse Rate from SpO2 Sensor 60 Pulse Rhythm [Apical] Pulse Strength [Apical] Respiratory Rate 21 Respiratory Effort / Characteristics Respiratory Depth Respiratory Pattern Blood Pressure 142/66 H 143/106 H Blood Pressure [Left Arm] Blood Pressure Mean 122 122 Blood Pressure Mean [Left Arm] Pulse Oximetry 92 Oxygen Delivery Method Room Air Sepsis Recent Fever Within 48 Hours Sepsis New/Unexplained Change in Mental Status Sepsis Action Taken by Nursing 08/28/23 18:06 08/28/23 18:06 08/28/23 18:30 Temperature Temperature Source Pulse Rate 62 Pulse Rate [Apical] Pulse Rate from SpO2 Sensor 61 Pulse Rhythm [Apical] Pulse Strength [Apical] Respiratory Rate 18 Respiratory Effort / Characteristics Respiratory Depth Respiratory Pattern Blood Pressure 138/64 140/69 Blood Pressure [Left Arm] Blood Pressure Mean 96 101 Blood Pressure Mean [Left Arm] Pulse Oximetry 92 Oxygen Delivery Method Room Air Sepsis Recent Fever Within 48 Hours Sepsis New/Unexplained Change in Mental Status Sepsis Action Taken by Nursing 08/28/23 18:30 08/28/23 19:00 08/28/23 19:00 Temperature Temperature Source Pulse Rate 57 L 59 L Pulse Rate [Apical] Pulse Rate from SpO2 Sensor 58 L 58 L Pulse Rhythm [Apical] Pulse Strength [Apical] Respiratory Rate 19 16 Respiratory Effort / Characteristics Respiratory Depth Respiratory Pattern Blood Pressure 147/65 H Blood Pressure [Left Arm] Blood Pressure Mean 93 Blood Pressure Mean [Left Arm] Pulse Oximetry 91 96 Oxygen Delivery Method Room Air Room Air Sepsis Recent Fever Within 48 Hours Sepsis New/Unexplained Change in Mental Status Sepsis Action Taken by Nursing Laboratory Data 08/29/23 07:38 08/29/23 07:38 Lab Results 08/28/23 08/28/23 08/28/23 Range/Units 15:25 16:32 17:18 WBC 8.53 (4.8-10.8) K/ul RBC 4.05 L (4.70-6.10) M/uL Hgb 11.9 L (14.0-18.0) g/dl Hct 36.5 L (42.0-52.0) % MCV 90.1 (80.0-100.0) fL MCH 29.4 (25.0-34.0) pg MCHC 32.6 (32.0-36.0) g/dL RDW Std Deviation 44.5 (36.4-46.3) fL RDW Coeff of [place] 13.4 (11.5-14.5) % Plt Count 412 H (130-400) K/uL MPV 9.3 L (9.4-12.4) fL Immature Gran % (Auto) 0.4 % Neut % (Auto) 67.4 % Lymph % (Auto) 19.6 % [place] % (Auto) 8.4 % Eos % (Auto) 2.9 % Baso % (Auto) 1.3 % Neut # (Auto) 5.75 (1.40-6.50) K/uL Lymph # (Auto) 1.67 (1.20-3.40) K/uL [place] # (Auto) 0.72 H (0.11-0.59) K/uL Eos # (Auto) 0.25 (0.00-0.50) K/uL Baso # (Auto) 0.11 (0.00-0.20) K/uL Immature Gran # (Auto) 0.03 (0.01-0.20) K/uL PT 12.3 H (9.0-12.0) Seconds INR 1.1 (0.9-1.1) APTT 28 (21-31) Seconds PTT Ratio 1.0 Sodium 134 L (136-145) mmol/L Potassium 4.6 (3.5-5.1) mmol/L Chloride 102 (98-107) mmol/L Carbon Dioxide 25 (21-32) mmol/L Anion Gap 7 (3-11) BUN 23 (6-23) mg/dl Creatinine 1.59 H (0.6-1.4) mg/dl Est Cr Clr Drug Dosing Not Reportable Est GFR ( Amer) 46.8 ml/min Est GFR (Non-Af Amer) 40.4 ml/min BUN/Creatinine Ratio 14.5 (10-20) Glucose 108 H (70-99(Fasting)) mg/dl Lactate 1.5 (0.4-2.0) mmol/L Calcium 8.8 (8.6-10.3) mg/dl Total Bilirubin 0.5 (0.2-1.0) mg/dl AST 5 L (13-39) U/L ALT 10 (7-52) U/L Alkaline Phosphatase 116 H (34-104) U/L Total Protein 7.9 (6.0-8.3) gm/dl Albumin 3.4 (3.4-5.0) gm/dl Globulin 4.5 H (2.5-4.0) gm/dl Albumin/Globulin Ratio 0.8 L (0.9-2) TSH 5.164 H (0.300-4.500) uIu/ml Free T4 1.15 (0.61-1.60) ng/dl Random Cortisol 14.49 mcg/dl Urine Color Dark Yellow Urine Appearance Cloudy A (Clear) Urine pH 5.5 (4.5-7.5) Ur Specific [place] 1.042 H (1.000-1.030) Urine Protein 2+ H (Negative) Urine Glucose (UA) Negative (Negative) Urine Ketones Trace H (Negative) Urine Blood 2+ H (Negative) Urine Nitrite Negative (Negative) Urine Bilirubin 1+ H (Negative) Urine Urobilinogen Positive H (Negative) Ur Leukocyte Esterase 2+ H (Negative) Urine WBC (Auto) >30 H (0-5) /hpf Urine RBC (Auto) 10-30 H (0-4) /hpf U Hyaline Cast (Auto) 1-5 (0-5) /lpf U Epithel Cells (Auto) 10-20 H (0-5) /lpf Urine Bacteria (Auto) Negative (Negative) Urine Yeast Not Reportable Adenovirus (PCR) Not Detected (NotDetected) B. pertussis DNA (PCR) Not Detected (NotDetected) B.parapertussis DNA PCR Not Detected (NotDetected) C. pneumoniae DNA (PCR) Not Detected (NotDetected) Coronavirus OC43 (PCR) Not Detected (NotDetected) Coronavirus HKU1 (PCR) Not Detected (NotDetected) Coronavirus 229E (PCR) Not Detected (NotDetected) SARS-CoV-2 (PCR) Not Detected (NotDetected) Coronavirus NL63 (PCR) Not Detected (NotDetected) Human Metapneumovir PCR Not Detected (NotDetected) Influenza Type A (PCR) Not Detected (NotDetected) Influenza Type B (PCR) Not Detected (NotDetected) M. pneumoniae (PCR) Not Detected (NotDetected) Parainfluenza 1 (PCR) Not Detected (NotDetected) Parainfluenza 2 (PCR) Not Detected (NotDetected) Parainfluenza 3 (PCR) Not Detected (NotDetected) Parainfluenza 4 (PCR) Not Detected (NotDetected) RSV (PCR) Not Detected (NotDetected) Entero/Rhino (PCR) Not Detected (NotDetected) Administered Medications Discontinued Medications Allopurinol (Allopurinol 300 Mg Tab) 300 mg PO [facility] Stop: 09/28/23 08:59 Last Admin: 08/29/23 08:34 Dose: 300 mg Documented By: REYNA Amlodipine Besylate (Amlodipine Besylate 5 Mg Tab) 5 mg PO NOW ONE Stop: 08/29/23 10:24 Last Admin: 08/29/23 11:01 Dose: 5 mg Documented By: REYNA Apixaban (Apixaban 2.5 Mg Tab) 2.5 mg PO BID [facility] Stop: 09/27/23 20:59 Last Admin: 08/29/23 08:35 Dose: 2.5 mg Documented By: Admin: 08/28/23 22:37 Dose: 2.5 mg Documented By: CARLY Carvedilol (Carvedilol 12.5 Mg Tab) 12.5 mg PO BID [facility] Stop: 09/27/23 20:59 Last Admin: 08/29/23 08:35 Dose: Not Given Documented By: Admin: 08/28/23 22:36 Dose: Not Given Documented By: CARLY Doxazosin Mesylate (Doxazosin Mesylate 4 Mg Tab) 4 mg PO QPM [facility] Stop: 09/27/23 20:59 Last Admin: 08/28/23 22:36 Dose: 4 mg Documented By: CARLY Sodium Chloride (Nss) 1,000 mls @ 999 mls/hr IV .Q1H1M ONE Stop: 08/28/23 17:33 Last Infusion: 08/28/23 18:36 Dose: Infused Documented By: Admin: 08/28/23 17:13 Dose: 999 mls/hr Documented By: PAULO Ceftriaxone Sodium (Rocephin) 2,000 mg in 50 mls @ 100 mls/hr IV NOW STA Stop: 08/28/23 18:39 Last Infusion: 08/28/23 19:08 Dose: Infused Documented By: Admin: 08/28/23 18:36 Dose: 100 mls/hr Documented By: HALI Sodium Chloride (Nss) 1,000 mls @ 999 mls/hr IV .Q1H1M ONE Stop: 08/28/23 19:16 Last Infusion: 08/28/23 22:25 Dose: Infused Documented By: Admin: 08/28/23 18:36 Dose: 999 mls/hr Documented By: HALI Ampicillin Sodium/Sulbactam Sodium 3,000 mg/ Sodium Chloride 100 mls @ 200 mls/hr IV Q6H [facility] Stop: 09/04/23 19:59 Last Infusion: 08/29/23 09:53 Dose: Infused Documented By: Admin: 08/29/23 08:35 Dose: 200 mls/hr Documented By: Infusion: 08/29/23 02:00 Dose: Infused Documented By: Admin: 08/29/23 01:20 Dose: 200 mls/hr Documented By: Infusion: 08/28/23 22:23 Dose: Infused Documented By: Admin: 08/28/23 20:56 Dose: 200 mls/hr Documented By: STAS Ioversol (Optiray 320 500ml) 87 ml IV ONCE ONE Stop: 08/28/23 17:01 Last Admin: 08/28/23 17:00 Dose: 87 ml Documented By: SHAY Levetiracetam (Levetiracetam 250 Mg Tab) 750 mg PO BID [facility] Stop: 09/27/23 20:59 Last Admin: 08/29/23 08:34 Dose: 750 mg Documented By: Admin: 08/28/23 22:37 Dose: 750 mg Documented By: ARR Losartan Potassium (Losartan Potassium 50 Mg Tab) 50 mg PO DAILY [facility] Stop: 09/28/23 10:29 Last Admin: 08/29/23 11:01 Dose: 50 mg Documented By: REYNA Triamcinolone Acetonide (Triamcinolone Acet 0.1% Cr 15 Gm Tube) 1 appln TOP BID [facility] Stop: 09/27/23 20:59 Last Admin: 08/29/23 08:36 Dose: 1 appln Documented By: Admin: 08/28/23 22:38 Dose: 1 appln Documented By: ARR Imaging Data Radiologist's Impression: Chest X-Ray 08/28/23 15:48 XR chest 1V portable CLINICAL HISTORY: Cough. Evaluate for pneumonia. COMPARISON STUDY: Chest CT August 01, 2023. FINDINGS: No pneumothorax or pleural effusion is present. Lung volumes are diminished. Left basilar airspace opacity has developed. Linear right basilar opacities favor atelectasis. There is no evidence for pulmonary edema. Cardiomediastinal silhouette is stable. IMPRESSION: 1. Interval developing of left basilar opacity. This favors pneumonia. Atelectasis could appear similar on this hypoventilatory study. Radiographic follow up to ensure resolution is recommended. 2. Right basilar opacities favor atelectasis. ACT 112: Negative or not required by law. Electronically signed by: Dhruv Castro M.D. 08/28/2023 4:34 PM Abdomen/Pelvis CT 08/28/23 16:26 CT OF THE ABDOMEN AND PELVIS WITH CONTRAST CLINICAL HISTORY: Diffuse abd pain + LUQ, constipation COMPARISON STUDY: CTs of the abdomen and pelvis June 23, 2023 and August 01, 2023. TECHNIQUE: Following IV administration of 87 mL of Optiray, axial images of the abdomen and pelvis were obtained from the lung bases to the proximal femurs. Images were reviewed in the axial, sagittal, and coronal planes. IV contrast was administered without complication. Automated exposure control was utilized for the study. A dose lowering technique was utilized adhering to the principles of ALARA. CT DOSE: 1959.26 mGy.cm FINDINGS: Small bilateral pleural effusions are present. Bilateral lower lobe airspace opacities with volume loss favors atelectasis. No pneumatosis, free air or portal venous gas is present. There are numerous hepatic cyst. Multiple gallstones within the gallbladder are present. The gallbladder is mildly distended. There is no pericholecystic infiltration. Spleen, adrenal glands and pancreas are unremarkable. There is no biliary or pancreatic ductal dilatation. Numerous bilateral renal lesions were shown to represent a combination of simple and hyperdense cysts on recent renal protocol CT of June 23, 2023. A few small right renal calculi measure up to 3 mm. There are no ureteral calculi. There is no hydronephrosis. A Jenkins balloon within the bladder is present. There is no evidence for a bowel obstruction. The appendix is normal. There is colonic diverticulosis without evidence for acute diverticulitis. Moderate amount of stool within the rectum. Major vasculature is patent. There is moderate plaque within the abdominal aorta and branch vessels. IMPRESSION: 1. Cholelithiasis with mild gallbladder distention. No pericholecystic infiltration. If right upper quadrant pain, ultrasound is recommended. 2. No evidence for a bowel obstruction. No bowel wall thickening. Colonic diverticulosis without evidence for acute diverticulitis. 3. Moderate amount of stool within the rectum. 4. Right nephrolithiasis. No ureteral calculi. No hydronephrosis. 5. Small bilateral pleural effusions. Lower lobe airspace opacities favor segmental atelectasis. ACT 112: Negative or not required by law. Electronically signed by: Dhruv Castro M.D. 08/28/2023 5:[address] 08/28/23 16:26 CT OF THE HEAD WITHOUT CONTRAST CLINICAL HISTORY: recent neurosurg procedure, brain bleed COMPARISON STUDY: Head CT and CTA of the head August 01, 2023. TECHNIQUE: Helical axial images of the head were obtained without IV contrast. Automated exposure control was utilized for the study. A dose lowering technique was utilized adhering to the principles of ALARA. FINDINGS: Interval postoperative findings are noted following drainage of the right extra-axial hematomas shown on CT of August 01, 2023. These have significantly decreased in size. Residual hypodense right extra-axial fluid collection measures 1.7 cm in thickness. No acute hemorrhage is present. Small amount of pneumocephalus is postprocedural. No new sites of hemorrhage are present. 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 White matter hypodensities are similar to prior exam and favor small vessel disease. There are no findings to suggest acute dural sinus thrombosis or acute territorial infarct. No calvarial fractures. IMPRESSION: 1. No acute intracranial hemorrhage. 2. Postoperative findings consistent with interval drainage extra-axial hematoma shown on prior CT. Small to moderate residual hypodense collection with minimal mass effect. Pneumocephalus which is postprocedural. ACT 112: Negative or not required by law. Electronically signed by: Dhruv Castro M.D. 08/28/2023 5:12 PM Discharge Plan Visit Data Chief Complaint: Hypotension Stated Complaint: HYPOTENSION, REF BY DR CHAN Provider: Mckayla Cabrera Discharge Problem: Pneumonia Patient Disposition: Admitted As Inpatient Discharge Instructions Interventions: ED Discharge Assessment Last Done: 08/28/23 20:58
[2023-08-28] MEDS ORDERED: OPTIRAY 320 500ml IV ONE (17:00)
--- NOTE | 2023-08-28 17:14 | CT Scan Report ---
CT OF THE HEAD WITHOUT CONTRAST CLINICAL HISTORY: recent neurosurg procedure, brain bleed COMPARISON STUDY: Head CT and CTA of the head August 01, 2023. TECHNIQUE: Helical axial images of the head were obtained without IV contrast. Automated exposure con trol was utilized for the study. A dose lowering technique was utilized adhering to the principles o f ALARA. FINDINGS: Interval postoperative findings are noted following drainage of the right extra-axial hemat omas shown on CT of August 01, 2023. These have significantly decreased in size. Residual hypodense right extra-axial fluid collection measures 1.7 cm in thickness. No acute hemorrhage is present. Sma ll amount of pneumocephalus is postprocedural. No new sites of hemorrhage are present. 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 White matter hypodensities are similar to prior exam and favor small v essel disease. There are no findings to suggest acute dural sinus thrombosis or acute territorial inf arct. No calvarial fractures. IMPRESSION: 1. No acute intracranial hemorrhage. 2. Postoperative findings consistent with interval drainage extra-axial hematoma shown on prior CT. Small to moderate residual hypodense collection with minimal mass effect. Pneumocephalus which is pos tprocedural. ACT 112: Negative or not required by law. Electronically signed by: Dhruv Castro M.D. 08/28/2023 5:12 PM
[2023-08-28 17:28] LABS: Appearance Urine Cloudy (Clear); Bacteria Urine Automated Negative (Negative); Bilirubin Urine 1+ (Negative); Blood Urine 2+ (Negative); Color Urine Dark Yellow; Glucose Urine UA Negative (Negative); Ketones Urine Trace (Negative); Leukocyte Esterase Urine 2+ (Negative); Nitrite Urine Negative (Negative); Protein Urine 2+ (Negative); Specific Gravity Urine 1.042 (1.000-1.030); Urobilinogen Urine Positive (Negative); WBC Urine Automated >30 /hpf (0-5); pH Urine 5.5 (4.5-7.5)
--- NOTE | 2023-08-28 17:46 | CT Scan Report ---
CT OF THE ABDOMEN AND PELVIS WITH CONTRAST CLINICAL HISTORY: Diffuse abd pain + LUQ, constipation COMPARISON STUDY: CTs of the abdomen and pelvis June 23, 2023 and August 01, 2023. TECHNIQUE: Following IV administration of 87 mL of Optiray, axial images of the abdomen and pelvis we re obtained from the lung bases to the proximal femurs. Images were reviewed in the axial, sagittal, and coronal planes. IV contrast was administered without complication. Automated exposure control wa s utilized for the study. A dose lowering technique was utilized adhering to the principles of ALARA . CT DOSE: 1959.26 mGy.cm FINDINGS: Small bilateral pleural effusions are present. Bilateral lower lobe airspace opacities with volume loss favors atelectasis. No pneumatosis, free air or portal venous gas is present. There are numerous hepatic cyst. Multiple gallstones within the gallbladder are present. The gallbladder is mil dly distended. There is no pericholecystic infiltration. Spleen, adrenal glands and pancreas are unre markable. There is no biliary or pancreatic ductal dilatation. Numerous bilateral renal lesions were shown to represent a combination of simple and hyperdense cysts on recent renal protocol CT of Octobe r 2022. A few small right renal calculi measure up to 3 mm. There are no ureteral calculi. There is no hydronephrosis. A Jenkins balloon within the bladder is present. There is no evidence for a bowel obstruction. The appendix is normal. There is colonic diverticulosis without evidence for acute dive rticulitis. Moderate amount of stool within the rectum. Major vasculature is patent. There is moderat e plaque within the abdominal aorta and branch vessels. IMPRESSION: 1. Cholelithiasis with mild gallbladder distention. No pericholecystic infiltration. If right upper q uadrant pain, ultrasound is recommended. 2. No evidence for a bowel obstruction. No bowel wall thickening. Colonic diverticulosis without evid ence for acute diverticulitis. 3. Moderate amount of stool within the rectum. 4. Right nephrolithiasis. No ureteral calculi. No hydronephrosis. 5. Small bilateral pleural effusions. Lower lobe airspace opacities favor segmental atelectasis. ACT 112: Negative or not required by law. Electronically signed by: Dhruv Casrto M.D. 08/28/2023 5:44 PM
[2023-08-28] MEDS ORDERED: cefTRIAXone SODIUM 2,000 MG/50 ML BAG IV STA (18:10)
[2023-08-28 18:14] LABS: Adenovirus PCR Not Detected (NotDetected); Bordetella parapertussis PCR Not Detected (NotDetected); Bordetella pertussis PCR Not Detected (NotDetected); Chlamydia pneumoniae PCR Not Detected (NotDetected); Coronavirus 229E PCR Not Detected (NotDetected); Coronavirus CoV-2 (COVID19)PCR Not Detected (NotDetected); Coronavirus HKU1 PCR Not Detected (NotDetected); Coronavirus NL63 PCR Not Detected (NotDetected); Coronavirus OC43PCR Not Detected (NotDetected); Human Metapneumovirus PCR Not Detected (NotDetected); Influenza A PCR Not Detected (NotDetected); Influenza B PCR Not Detected (NotDetected); Mycoplasma pneumoniae PCR Not Detected (NotDetected); Parainfluenza Virus 1 PCR Not Detected (NotDetected); Parainfluenza Virus 2 PCR Not Detected (NotDetected); Parainfluenza Virus 3 PCR Not Detected (NotDetected); Parainfluenza Virus 4 PCR Not Detected (NotDetected); Respiratory Syncytial VirusPCR Not Detected (NotDetected); Rhinovirus/Enterovirus PCR Not Detected (NotDetected)
--- NOTE | 2023-08-28 18:33 | History & Physical Report ---
Date of Service August 28, 2023 Assessment & Plan (1) Hypotension: Plan: Hypotension,? Sepsis Chest x-ray? Developing left basilar opacity, no pulmonary symptoms. Viral bio fire is negative. DDx includes urinary with indwelling catheter and recent manipulation. Patient has been on cefdinir as outpatient. Received ceftriaxone while in the ER. Due to potential developing lobar pneumonia MRSA nare and sputum culture ordered. If MRSA is positive, cover with vancomycin. As patient was developing infection was already on cefdinir, recommend switching from third-generation cephalosporin class; will place on Unasyn to allow for vancomycin if MRSA positive. Sputum culture, blood culture ordered He has also had outpatient low blood pressures without infectious findings in his losartan had been cut in half. Has not had any antihypertensives increased. Patient reports he has also been generally cold since his ICH, will check random and morning cortisol and TSH to screen for central hypotension. Clinically stable and blood pressure improved to 140s at the bedside. antihypertensives held with the exception of beta-magdaleno as blood pressure is improving post fluids. May continue to resume diltiazem and the losartan blood pressure permitting (2) Subdural hematoma: Plan: History of bilateral subdural hematoma, R epidural, MMA bleed Stable s/p MMA embolization. Has been restarted on and is tolerating Eliquis well Stable on imaging No erythema or signs of infection at surgical site Keppra continued for seizure prophylaxis, has not had any seizures -95% recovered with strength and sensation, minimal residual symptoms - o evidence of seizure activity preceding or on admission (3) Pneumonia: Plan: As noted (4) Factor V Leiden: Plan: Factor V Leiden Eliquis is noted (5) Alcohol abuse: Plan: Former alcohol use Patient has former alcohol abuse in remission, and is happy to report 180 days in remission. No acute change in management at this time (6) Benign prostatic hyperplasia without urinary obstruction: Plan: LUTS Jenkins in place draining light yellow urine, recent manipulation and is covered with antibiotics.UA is with moderate epithelial cells, leukocyte esterase, bilirubin, but no nitrites. Covered with antibiotics as noted, no urinary symptoms History of Present Illness Primary Care Provider: Carela Durga Vasquez is a 78-year-old male with a past medical history of hypertension, factor V Leiden on warfarin, neuropathy, BPH with LUTS, complex renal cyst, and recent urinary retention presents with hypotension. he was recommended for admission fo r sepsis on admission with initial blood pressure 81/54 normalized following 1 L fluid. [place] body weight goal 2427 cc, no history of heart failure. Per signout and chart review Brain bleed one month ago. Developed left-sided weakness on 07/26/2023 with progressive worsening and ambulatory dysfunction, presented to [facility] when he developed a headache and was found to have a bilateral subdural hematoma and suspected epidural right-sided hematoma and was transferred to [facility] for additional care. 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 He was hemodynamically stable until 08/03 was neuro exam declined and had increased weakness on the left. CTh showed increasing acute blood with midline shift. Neurosurgery performed bur hole placement and MMA embolization via right groin access. He had clinical improvement following procedure and repeat imaging showed i mproving right to left midline shift/subfalcine herniation. EEG was performed by neuro and no epileptiform was seen patient was continued on Keppra 750 mg twice daily for seizure prophylaxis return home and is recovering well other than having some urinary retention noted 08/26 and had a coud inserted, underwent cystoscopy and was found to have no evidence of urethral cyst stricturing but did have bulbous dilation of urethra just distal to sphincter which may be catching Jenkins's, cystoscope was easily passed and patient had a 16 [place] catheter placed via over wire without complications which she is to remain in for at least 2 weeks with voiding trial as outpatient urology For patient with: Pedro is seen at the bedside with his present. He and his are known to me from prior admission, he was excited to express great excitement over his success staying sober from alcohol for over 180 days. He reports after his admission in the summer and long discussions over the harms of alcohol to his life he left that admission resolute to make a change and has been able to stay sober since that time. Unfortunately he was seen and treated for left-sided weakness and intracranial bleed in July as documented above, but is grateful that he has recovered well and has regained 95% of his strength and function. He endorses history as above, notes that he has been transition to [facility] and is tolerating this well. He was doing well and is clinically progressing at home when he noticed several low blood pressures today with systolic in the 70s80s. He was not lightheaded or dizzy but has felt fatigued. He has not had any respiratory symptoms including cough, congestion, sputum production, or shortness of breath. He did have a catheter exchange which was complicated by difficult placement and requiring cystoscopy 2 days ago, but this was done successfully with an [id number] technique and he reports he has been on cefdinir since for prophylactic treatment. He does not have any pain at his catheter site has not had any difficulty with Jenkins drainage which has remained light yellow to a leg bag. He has no abdominal pain. No chest pain. He is taking his medications as directed. No weakness, no vision change. Medical History: Reviewed Medications: Reviewed Surgical History: Reviewed Family history: Reviewed Allergies: Reviewed Social History: Former alcohol abuse in remission. No tobacco Code Status: Full code Allergies Allergy/AdvReac Type Severity Reaction Status Date / Time No Known Drug Allergies Allergy 0 Verified 08/26/23 10:30 Home Medications Medication Instructions Recorded Confirmed Type diltiazem HCl 360 mg capsule,24 360 mg PO DAILY ##0 03/05/18 08/28/23 History hr,extended release (Tiazac) allopurinol 300 mg tablet 300 mg PO QAM 03/01/23 08/28/23 History doxazosin 2 mg tablet 4 mg (2 x 2 mg) PO QPM #60 tabs 04/15/23 08/28/23 Rx carvedilol 12.5 mg tablet 12.5 mg PO BID 08/26/23 08/28/23 History cefdinir 300 mg capsule 300 mg PO BID #14 caps 08/26/23 08/28/23 Rx cyclobenzaprine 5 mg tablet 5 mg PO TID PRN Other 08/26/23 08/28/23 History levetiracetam 750 mg tablet 750 mg PO AMHS 08/26/23 08/28/23 History nystatin 100,000 unit/gram topical 1 applic topical BID #15 grams 08/26/23 08/28/23 Rx cream triamcinolone acetonide 0.1 % 1 applic topical BID #15 grams 08/26/23 08/28/23 Rx topical cream losartan 100 mg tablet 50 mg PO DAILY #0 tabs 08/27/23 08/28/23 History apixaban 2.5 mg tablet (Eliquis) 2.5 mg PO BID 08/28/23 08/28/23 History Past Med/Surg History Medical History (Updated 08/28/23 @ 19:12 by Victor Manuel Aponte MD) Vitamin B12 deficiency No significant social history No pertinent family history 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) Benign prostatic hyperplasia without urinary obstruction Chest pain Chronic venous insufficiency Deep phlebitis-leg NEC (10/23/12) Edema Former smoker Homocystinuria Periumbilical hernia Prothrombin gene mutation (10/23/12) Renal cyst, acquired Urinary retention Umbilical hernia Ventricular tachycardia Orthostatic hypotension (03/17/12) Surgical History Knee joint replacement status (10/23/12) S/P laparoscopic hernia repair Social History Smoking Status: Never smoker Hx Alcohol Use: Yes Alcohol type: wine Hx Substance Use: Yes Last Used Substance: Days (ago) Last Used Substance Other:: within last few days, would not provide specifics Substance Use Type Other:: medical marijuana per pt Preferred Language: [place] Communication Ability: Effective Corporate Travel Agent Required: No Beliefs That Will Affect Care: None Current Living Situation: Spouse Feels Safe at Home: Yes Assistive Devices: None Physical Exam Physical Exam: General: A&Ox3. NAD. Cooperative. HEENT: Atraumatic, normocephalic. Vision/hearing grossly intact. garth hole surgical sites are well-healing without erythema/warmth/tenderness/crepitus and no signs of infection Pulm: Basilar crackles without overt wheezes/rales. symmetrical chest rise. No increased work of breathing. No respiratory distress. Cardiac: RRR, -mrg. Radial pulses intact and symmetrical. Abdominal: Nontender, nondistended, soft. BS present. : Jenkins in place draining light yellow urine. Faintly erythematous rash overlying the scrotum, no scrotal tenderness or edema. No discharge. No crepitus. Extremities: Warm, dry. Senior Medical Transcriptionist strength, elbow flexion, ankle dorsiflexion/plantarflexion are 5/5 bilaterally. Patient endorses neuropathy but intact sensation in hands and feet to soft touch Results & Data Results & Data Vital Signs (Past 12 Hours) Vital Signs Temp Pulse Pulse Resp BP BP Pulse Ox 08/28/23 17:13 60 08/28/23 16:00 61 19 100/70 96 08/28/23 15:08 36.6 C 69 20 81/54 L 96 O2 Del Method 08/28/23 17:13 08/28/23 16:00 Room Air 08/28/23 15:08 Room Air PG Care Time/CCT Total # of Minutes Spent Total Time Spent with Patient: Total time spent is greater than 50% in coordination of care (as documented) at patient's floor/unit and/or counseling patient: Coding Level of Care Code 06923 INT INP/OBS CARE 3/75MIN Diagnoses Hypotension I95.9 Subdural hematoma S06.5XAA Pneumonia J18.9 Factor V Leiden D68.51 Alcohol abuse F10.10 Benign prostatic hyperplasia without urinary obstruction N40.0
[2023-08-28 19:05] LABS: Thyroid Stimulating Hormone 5.164 uIu/ml (0.300-4.500)
[2023-08-28 19:40] LABS: T4 Free Thyroxine 1.15 ng/dl (0.61-1.60)
[2023-08-28] MEDS ORDERED: AMPICILLIN/SULBACTAM SOD 3,000 MG in SODIUM CHLOR 0.9% MINI-B 100 ML IV SCH (20:00)
[2023-08-28] MEDS: UNASYN 3000MG / NS q6h IV SCH (20:56)
[2023-08-28] MEDS ORDERED: CYCLOBENZAPRINE HCL 5 MG TAB PO PRN (20:58)
[2023-08-28] MEDS ORDERED: ACETAMINOPHEN 325 MG TAB PO PRN (20:58)
[2023-08-28] MEDS ORDERED: DOXAZosin MESYLATE 4 MG TAB PO SCH (21:00)
[2023-08-28] MEDS: carvediloL 12.5 MG TAB PO SCH (22:36)
[2023-08-28] MEDS: APIXABAN 2.5 MG TAB PO SCH (22:37)
[2023-08-28] MEDS: levETIRAcetam 250 MG TAB PO SCH (22:37)
[2023-08-28] MEDS: TRIAMCINOLONE ACET 0.1% CR 15 GM TUBE TOP SCH (22:38)
[2023-08-29] MEDS ORDERED: AMOXICILLIN/CLAVULANATE 875 MG TAB PO SCH
[2023-08-29] MEDS ORDERED: amLODIPine BESYLATE 5 MG TAB PO SCH
[2023-08-29] MEDS: UNASYN 3000MG / NS q6h IV SCH ×2 (01:20→08:35)
[2023-08-29] MEDS: levETIRAcetam 250 MG TAB PO SCH (08:34)
[2023-08-29] MEDS: carvediloL 12.5 MG TAB PO SCH (08:35)
[2023-08-29] MEDS: APIXABAN 2.5 MG TAB PO SCH (08:35)
[2023-08-29] MEDS: TRIAMCINOLONE ACET 0.1% CR 15 GM TUBE TOP SCH (08:36)
[2023-08-29 08:49] LABS: Basophils % (auto) 1.6 %; Eosinophils # (auto) 0.26 K/uL (0.00-0.50); Eosinophils % (auto) 4.1 %; Hematocrit (blood only) 31.6 % (42.0-52.0); Hemoglobin 10.2 g/dl (14.0-18.0); Immature Granulocytes # (auto) 0.03 K/uL (0.01-0.20); Immature Granulocytes % (auto) 0.5 %; Lymphocytes # (auto) 1.54 K/uL (1.20-3.40); Lymphocytes % (auto) 24.2 %; Mean Corpuscular Hemoglobin 28.8 pg (25.0-34.0); Mean Corpuscular Hgb Conc 32.3 g/dL (32.0-36.0); Mean Corpuscular Volume 89.3 fL (80.0-100.0); Mean Platelet Volume 9.4 fL (9.4-12.4); Neutrophils # (auto) 3.73 K/uL (1.40-6.50); Neutrophils % (auto) 58.6 %; Platelet Count 327 K/uL (130-400); RDW Coefficient of Variation 13.3 % (11.5-14.5); RDW Standard Deviation 44.1 fL (36.4-46.3); Red Blood Count 3.54 M/uL (4.70-6.10); White Blood Count 6.36 K/ul (4.8-10.8)
[2023-08-29 08:55] LABS: BUN Creatinine Ratio 15.2 (10-20); Calcium 8.4 mg/dl (8.6-10.3); Creatinine Clr Calc Pharmacy 57.7 ml/min; Est GFR (African American) 71.5 ml/min; Est GFR (Non-African American) 61.7 ml/min; Potassium 4.1 mmol/L (3.5-5.1)
[2023-08-29] MEDS ORDERED: allopurinoL 300 MG TAB PO SCH (09:00)
[2023-08-29] MEDS ORDERED: amLODIPine BESYLATE 5 MG TAB PO ONE (10:23)
[2023-08-29] MEDS ORDERED: LOSARTAN POTASSIUM 50 MG TAB PO SCH (10:30)
--- NOTE | 2023-08-29 11:42 | Discharge Summary ---
Date of Service August 29, 2023 Admission HPI Per Admitting Provider Pedro is a 78-year-old male with a past medical history of hypertension, factor V Leiden on warfarin, neuropathy, BPH with LUTS, complex renal cyst, and recent urinary retention presents with hypotension. he was recommended for admission for sepsis on admission with initial blood pressure 81/54 normalized following 1 L fluid. [place] body weight goal 2427 cc, no history of heart failure. Per signout and chart review Brain bleed one month ago. Developed left-sided weakness on 07/26/2023 with progressive worsening and ambulatory dysfunction, presented to [facility] when he developed a headache and was found to have a bilateral subdural hematoma and suspected epidural right-sided hematoma and was transferred to [facility] for additional care. 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 He was hemodynamically stable until 08/03 was neuro exam declined and had increased weakness on the left. CTh showed increasing acute blood with midline shift. Neurosurgery performed bur hole placement and MMA embolization via right groin access. He had clinical improvement following procedure and repeat imaging showed improving right to left midline shift/subfalcine herniation. EEG was performed by neuro and no epileptiform was seen patient was continued on Keppra 750 mg twice daily for seizure prophylaxis return home and is recovering well other than having some urinary retention noted 08/26 and had a coud inserted, underwent cystoscopy and was found to have no evidence of urethral cyst stricturing but did have bulbous dilation of urethra just distal to sphincter which may be catching Jenkins's, cystoscope was easily passed and patient had a 16 [place] catheter placed via over wire without complications which she is to remain in for at least 2 weeks with voiding trial as outpatient urology For patient with: Pedro is seen at the bedside with his present. He and his are known to me from prior admission, he was excited to express great excitement over his success staying sober from alcohol for over 180 days. He reports after his admission in the summer and long discussions over the harms of alcohol to his life he left that admission resolute to make a change and has been able to stay sober since that time. Unfortunately he was seen and treated for left-sided weakness and intracranial bleed in July as documented above, but is grateful that he has recovered well and has regained 95% of his strength and function. He endorses history as above, notes that he has been transition to [facility] and is tolerating this well. He was doing well and is clinically progressing at home when he noticed several low blood pressures today with systolic in the 70s80s. He was not lightheaded or dizzy but has felt fatigued. He has not had any respiratory symptoms including cough, congestion, sputum production, or shortness of breath. He did have a catheter exchange which was complicated by difficult placement and requiring cystoscopy 2 days ago, but this was done successfully with an [id number] technique and he reports he has been on cefdinir since for prophylactic treatment. He does not have any pain at his catheter site has not had any difficulty with Jenkins drainage which has remained light yellow to a leg bag. He has no abdominal pain. No chest pain. He is taking his medications as directed. No weakness, no vision change. Medical History: Reviewed Medications: Reviewed Surgical History: Reviewed Family history: Reviewed Allergies: Reviewed Social History: Former alcohol abuse in remission. No tobacco Code Status: Full code Principal Diagnosis PNA, Hypotension Discharge Exam General: A&Ox3. NAD. Cooperative. HEENT: Atraumatic, normocephalic. Pulm: CTAB A&P. -wheezes, -rales, -rhonchi. Symmetrical chest rise. No increased work of breathing. No respiratory distress. Cardiac: RRR, -mrg. Radial pulses intact and symmetrical. Abdominal: Nontender, nondistended, soft. BS present. Discharge Data Allergies Allergy/AdvReac Type Severity Reaction Status Date / Time No Known Drug Allergies Allergy 0 Verified 08/26/23 10:30 Consultations 08/28/23 18:17 ED Decision to Admit Stat Ordered Studies 08/28/23 16:26 CT Abd and Pelvis [CT abd pelvis IV con only] Stat CT head/brain wo con Stat Hospital Course (1) Hypotension: Pedro was seen in the ER for hypotension and weakness, he reports he felt more weak and more easily fatigued but without cough/sputum production. He reports he has been doing very well since his discharge from [facility] and has regained 95% of all function after his bilateral subdural hematoma/right epidural up until this week when he began to worsen. He had been on cefdinir following a difficult catheter placement with urology 2 days prior, was not having any hematuria or bloody output into his cath. Imaging did show suspected developing focal basilar density of the left lung consistent with pneumonia. His blood pressure rapidly normalized following fluids and he was treated with Unasyn. MRSA testing was normal. Patient was noted to be bradycardic without heart block and did not have symptoms of bradycardia during admission. As result of this his diltiazem was switched to amlodipine for blood pressure control. Carvedilol was continued with hold parameters. He had a mild DAVID on presentation which resolved and losartan was subsequently continued with hold parameters. He showed no signs of repeat brain bleeding or neurologic deficits during admission. Due to his history of recent brain bleed with hypotension TSH and cortisol were checked. Random cortisol and morning cortisol were within normal ranges, free T4 was normal. He was discharged with a home pack for Augmentin and amlodipine, case was reviewed with his at bedside who is comfortable with the plan and discharged home. He is ambulating independently and normally at time of discharge. No additional questions or concerns, and patient will follow-up with cardiology for additional blood pressure review and medication adjustments within the month. To do as outpatient: 1. Complete 5-day course of Augmentin for pneumonia 2. Keep follow-up with urology for voiding trial/Jenkins removal 3. Follow-up with PCP or cardiology for continued blood pressure monitoring and adjustments as Progress note copied below for Hypotension,? Sepsis Chest x-ray? Developing left basilar opacity, no pulmonary symptoms. Viral bio fire is negative. DDx includes urinary with indwelling catheter and recent manipulation. Patient has been on cefdinir as outpatient. Received ceftriaxone while in the ER. Due to potential developing lobar pneumonia MRSA nare and sputum culture ordered. If MRSA is positive, cover with vancomycin. As patient was developing infection was already on cefdinir, recommend switching from third-generation cephalosporin class; will place on Unasyn to allow for vancomycin if MRSA positive. Sputum culture, blood culture ordered He has also had outpatient low blood pressures without infectious findings in his losartan had been cut in half. Has not had any antihypertensives increased. Patient reports he has also been generally cold since his ICH, will check random and morning cortisol and TSH to screen for central hypotension. Clinically stable and blood pressure improved to 140s at the bedside. antihypertensives held with the exception of beta-magdaleno as blood pressure is improving post fluids. May continue to resume diltiazem and the losartan blood pressure permitting (2) Subdural hematoma: History of bilateral subdural hematoma, R epidural, MMA bleed Stable s/p MMA embolization. Has been restarted on and is tolerating Eliquis well Stable on imaging No erythema or signs of infection at surgical site Keppra continued for seizure prophylaxis, has not had any seizures -95% recovered with strength and sensation, minimal residual symptoms - o evidence of seizure activity preceding or on admission (3) Pneumonia: As noted (4) Factor V Leiden: Factor V Leiden Eliquis is noted (5) Alcohol abuse: Former alcohol use Patient has former alcohol abuse in remission, and is happy to report 180 days in remission. No acute change in management at this time (6) Benign prostatic hyperplasia without urinary obstruction: LUTS Jenkins in place draining light yellow urine, recent manipulation and is covered with antibiotics.UA is with moderate epithelial cells, leukocyte esterase, bilirubin, but no nitrites. Covered with antibiotics as noted, no urinary symptoms Total Time Total Time Spent Total Time Spent (In Minutes): Time spend day of discharge 40 minutes including direct patient care, docum entation, review of labs and images, and coordination of care. Discharge Plan Discharge Items Patient Disposition: Home - Self-Care Reason For Visit: HYPOTENSION, ?PNA Discharge Diagnosis: PNA, Hypotension Activity: Per Instructions section Non-emergency contact: Primary Care Provider Call non-emergency contact if: you have any medication questions, your symptoms worsen and you have a fever Follow-up/Referrals: Dillon Calixto [Primary Care Provider] - Diet: Regular Addtl Attending Provider Instructions: You were seen in the hospital for hypotension and weakness and were found to have developing left basilar opacities on your x-ray suggestive of pneumonia. Your blood pressure was low on admission, this normalized with fluids and antibiotics. You did not show signs of sepsis. Your MRSA test, a type of drug- resistant bacteria, was negative. You have been discharged on an antibiotic as below, and with medication changes as below You have been discharged on an antibiotic, Augmentin. Please take Augmentin twice daily for 5 additional days starting evening of 08/30/23 to complete treatment for pneumonia. This replaces the cefdinir you are taking at home following your urologic procedure, you may stop taking cefdinir at this time. You are noted to have a intermittently mildly slow heart rate without symptoms of bradycardia. 2 of your medications, diltiazem and carvedilol can contribute to a slow heart rate. Your diltiazem has been discontinued and replaced with another medication, amlodipine as noted below. Please continue to take your carvedilol, however if you notice that your heart rate is very slow/less than 50 you should hold this and call your rand maker for recommendations. You have been started on a new blood pressure medication, amlodipine. Please take amlodipine 5 mg once daily in the morning starting on 08/30/2023. If you develop low blood pressure, lightheadedness, dizziness, or leg swelling please do not take this medication and call your primary care provider for recommendations You may resume your losartan 50 mg daily. You had briefly elevated kidney numbers, these returned to normal during admission and it was safe to resume your losartan. If you develop any new or worsening symptoms including fever, chills, sweats, chest pain, chest pressure, difficulty breathing, uncontrolled nausea/vomiting, rash, wheezing, passing out or nearly passing out, bleeding, black/bloody bowel movements, or other new or concerning symptoms please call your primary care physician, or call 911 for re-evaluation in the emergency department if you are very concerned. Pending Studies at Discharge: No Stand-Alone Forms: [facility], Smoking Cessation Medications and DC Order Prescriptions: New amlodipine [Norvasc] 5 mg Tablet 5 mg PO QAM Qty: 30 0RF amoxicillin-pot clavulanate 875-125 mg tablet 1 tab PO BID 3 Days Qty: 6 0RF Continued doxazosin 2 mg tablet 4 mg PO QPM Qty: 60 11RF losartan 100 mg tablet 50 mg PO DAILY Qty: 0 Rx Instructions: doing 50 mg for one day carvedilol 12.5 mg tablet 12.5 mg PO BID Rx Instructions: must administer with a meal/food levetiracetam 750 mg tablet 750 mg PO AMHS cyclobenzaprine 5 mg tablet 5 mg PO TID PRN (Reason: Other) triamcinolone acetonide 0.1 % cream 1 applic topical BID Qty: 15 2RF nystatin 100,000 unit/gram cream 1 applic topical BID Qty: 15 2RF allopurinol 300 mg Tablet 300 mg PO QAM Eliquis 2.5 mg tablet 2.5 mg PO BID Discontinued diltiazem HCl [Tiazac] 360 mg Capsule,Extended Release 24 Hr 360 mg PO DAILY Qty: 0 cefdinir 300 mg capsule 300 mg PO BID Qty: 14 0RF Discharge Orders: Discharge Order (Routine); Ordered 08/29/23 Ordered By: Victor Manuel Aponte Admission Data Admit Date/Time: 08/28/23 19:04 Attending Provider: Victor Manuel Aponte Admit Provider: Victor Manuel Aponte Primary Care Provider: Dillon Calixto Coding Level of Care Code 22712 INP/OBS DISCH >30 MIN Diagnoses Hypotension I95.9 Subdural hematoma S06.5XAA Pneumonia J18.9 Factor V Leiden D68.51 Alcohol abuse F10.10 Benign prostatic hyperplasia without urinary obstruction N40.0
--- NOTE | 2023-08-29 20:49 | Electrocardiogram Report ---
Test Reason : Blood Pressure : / mmHG Vent. Rate : 066 BPM Atrial Rate : 066 BPM P-R Int : 162 ms QRS Dur : 080 ms QT Int : 402 ms P-R-T Axes : -08 015 041 degrees QTc Int : 421 ms Normal sinus rhythm Normal ECG When compared with ECG of 01-AUG-2023 13:44, Aberrant conduction is no longer Present Confirmed by Rodriguez Jerome ([id number]) on 08/29/2023 8:49:07 PM Referred By: Confirmed By:Rodriguez Jerome
[2023-08-30] MEDS ORDERED: amLODIPine BESYLATE 5 MG TAB PO SCH (09:00)
== END 2023-08-29 13:08 | disposition home or self-care (01) | DRG 194 ==
LOC: ED 15:00 → EDINP 19:04 → 2N 20:58